=== PATIENT | male | born 1955 | race Caucasian/White ===

== ENCOUNTER 2016-04-12 17:36 | Inpatient (IN) | payer OTHER ==
[~2016-04-12] VITALS: Ht 177.8 cm; Wt 84.4 kg
[~2016-04-12 17:36] MED LIST: CEPH500C PO; OXYC-57 PO
[2016-04-12] MEDS ORDERED: SODIUM CHLORIDE 0.9% 1000ML 1,000 ML IV STA (18:08)
[2016-04-12] MEDS ORDERED: MoRPHine SULFATE 4 MG/ML 1 ML CARP\\VIAL IV STA (18:08)
[2016-04-12] MEDS ORDERED: ONDANSETRON INJ 2 MG/ML 2 ML VIAL IV STA (18:08)
--- NOTE | 2016-04-12 18:16 | EMERGENCY ROOM VISIT NOTE ---
History Report prepared by Chiquis: Jorge Dove Under the Supervision of: Dr. Morenita Pinedo M.D. First contact with patient: 18:00 Chief Complaint: SWELLING TO EXTREMITY Stated Complaint: L LEG PAIN SWELLING, POSSBILE CLOT/INFECTION History of Present Illness The patient is a 61 year old male who presents to the Emergency Room with complaints of persistent left leg pain that started last night around 2200. The patient says he has had red blotches below his left knee for years, but now he feels pain in his bone. He says he uses cream for his leg but the red blotches always come back. The patient describes the pain as severe and worse when walking. He notes that he did not hit his leg recently. The patient denies any chest pain, shortness of breath, fevers, or numbness. The patient has not had any recent trips and he has not had any surgeries. He has no history of a blood clot. He does smoke a pack and a half of cigarettes per day. Per the patient's , the patient took 2 prescription ibuprofen earlier today at 1300 and 1600. Source of History: patient, family Onset: Last night around 2200 Position: leg (left) Symptom Intensity: severe Timing: other (persistent) Modifying Factors (Worsening): other (ambulation) Associated Symptoms: No SOB, No chest pain, No fevers, No numbness Note: Associated symptoms: Red blotches below left knee for years. Review of Systems See HPI for pertinent positives & negatives. A total of 10 systems reviewed and were otherwise negative. Past Medical & Surgical Medical Problems: (1) PNA (pneumonia) (2) Skin problem Family History Cancer Diabetes mellitus Social History Smoking Status: Current Every Day Smoker Alcohol Use: occasionally Marital Status: Occupation Status: employed Current/Historical Medications Scheduled PRN Ibuprofen (Motrin), 1,200 MG PO BID PRN for Pain Allergies Coded Allergies: No Known Allergies (Unverified , 04/12/16) Physical Exam Vital Signs Date Time Temp Pulse Resp B/P Pulse Ox O2 Delivery O2 Flow Rate FiO2 04/12/16 20:21 39.4 04/12/16 20:09 90 18 121/73 95 Room Air 04/12/16 18:32 94 04/12/16 17:42 37.0 108 17 145/79 100 Room Air Physical Exam Vital signs reviewed. General: Well-appearing 61 year old male, in no significant distress. HEENT: No scleral icterus, PERRLA, neck supple. Atraumatic. Cardiovascular: Regular rate and rhythm, no extra sounds. Pulmonary: Clear to auscultation bilaterally, normal work of breathing. Abdomen: Soft, nontender, nondistended, positive bowel sounds. Musculoskeletal: Atraumatic, no peripheral edema. Neurologic: Patient awake alert and oriented x 3, full strength in all 4 extremities. Cranial nerves 2 through 12 grossly intact. Skin: Excoriated skin along the anterior left pantoja with palpable edema and fluctuance along mid-pantoja. Some tenderness to palpation over calf. Some erythema from ankle to the distal knee anteriorly. Medical Decision & Procedures ER Provider Diagnostic Interpretation: X-ray results as stated below per my interpretation and radiologist interpretation. Other radiology results as stated below per my review and radiologist interpretation: LEFT TIBIA AND FIBULA 2 VIEWS CLINICAL HISTORY: Left leg pain and swelling. FINDINGS: AP and lateral views of the left tibia and fibula are obtained. No prior studies are available for comparison at the time of dictation. The skeletal structures are well mineralized. There is no tibial or fibular fracture. The knee and ankle joints are grossly maintained. Mild pretibial soft tissue edema is noted. IMPRESSION: Mild pretibial soft tissue swelling with no fracture identified. Electronically signed by: Yakov Merritt M.D. 04/12/2016 7:27 PM ULTRASOUND LEFT LOWER EXTREMITY VENOUS CLINICAL HISTORY: Left leg pain and swelling. COMPARISON STUDY: No priors. TECHNIQUE: Real-time, grayscale, and color Doppler sonography of the deep veins of the left lower extremity was performed from the inguinal crease to the calf. Compression and augmentation were utilized. FINDINGS: There is no sonographic evidence of deep venous thrombosis identified in the left lower extremity. The common femoral, superficial femoral, and popliteal veins are patent and normally compressible. The greater saphenous vein and the profunda femoris vein at the junction with the common femoral vein are clear. The visualized calf veins are patent. A small popliteal cyst measures 1.8 x 0.6 x 1.3 cm. IMPRESSION: 1. There is no sonographic evidence of deep venous thrombosis identified in the left lower extremity. 2. Small popliteal cyst. Electronically signed by: Yakov Merritt M.D. 04/12/2016 7:52 PM Laboratory Results Laboratory results per my review. Medications Administered Medications (Trade) Dose Ordered Sig/Melissa Route Start Time Stop Time Status Last Admin Dose Admin Sodium Chloride (Nss 1000ml) 1,000 ml @ 125 mls/hr Q8H STAT IV 04/12/16 18:08 04/12/16 22:28 DC 04/12/16 20:09 125 MLS/HR Morphine Sulfate (MoRPHine SULFATE INJ) 4 mg NOW STAT IV 04/12/16 18:08 04/12/16 18:11 DC 04/12/16 19:12 4 MG Ondansetron HCl 4 mg 4 mg NOW STAT IV 04/12/16 18:08 04/12/16 18:11 DC 04/12/16 19:12 4 MG Vancomycin HCl/ Sodium Chloride (Vancomycin Inj/ Nss 500ml) 542 ml @ 200 mls/hr NOW STAT IV 04/12/16 20:28 04/12/16 23:10 DC 04/12/16 21:24 200 MLS/HR ED Course 1801: Past medical records reviewed. The patient was evaluated in room C5. A complete history and physical examination was performed. 1807: Ordered Zofran Inj 4 mg IV, Morphine Sulfate Inj 4 mg IV, NSS 1000 ml @ 125 mls/hr IV. 1956: I reevaluated the patient and he is resting comfortably. 2014: Ordered Keflex Cap 500 mg PO. 2018: I reevaluated the patient and he has a temperature of 39.5. The patient verbally expressed agreement and understanding of the treatment plan. The patient will be evaluated for further treatment. 2027: Ordered Vancomycin HCl 2100 mg/Sodium Chloride 542 ml @ 200 mls/hr IV. 2029: I discussed the patient with Dr. Malone - [facility] hospitalist - he will evaluate the patient for further treatment. Medical Decision Differential diagnosis: Etiologies such as DVT, musculoskeletal, infection, joint effusion, trauma, lymphedema, idiopathic, CHF, hematoma abscess as well as others were entertained.. This patient was evaluated and appeared to be in no significant distress. Physical examination reveals swelling along the anterior tibial region of the left leg. There is some erythema from the ankle to the distal knee. IV access was obtained and laboratory work was drawn. The patient's ultrasound is negative for DVT, x-rays reveal no acute bony abnormality. The patient spiked a temperature during his stay in the emergency department. Blood cultures were ordered as well as a lactate. Patient was hydrated with normal saline solution , medicated with IV vancomycin. He had been given morphine and Zofran for his discomfort. The patient's case was discussed with the hospitalist service. He will be evaluated for further management. Consults Time Called: 2024 Consulting Physician: Dr. Faisal MATIAS hospitalist Returned Call: 2029 I discussed the patient with Dr. Faisal MATIAS hospitalkasey - he will evaluate the patient for further treatment. Impression Primary Impression: Cellulitis of left lower extremity Additional Impression: Fever Scribe Attestation The scribe's documentation has been prepared under my direction and personally reviewed by me in its entirety. I confirm that the note above accurately reflects all work, treatment, procedures, and medical decision making performed by me. Departure Information Dispostion Being Evaluated By Hospitalist Referrals Houston Elizalde M.D. (PCP) Patient Instructions A Signature Page, My [facility]
[2016-04-12 18:38] LABS: BASO % 0.1 %; BASO ABS # 0.01 K/uL (0-0.2); COMPLETE YES; EOS % 1.3 %; HEMATOCRIT 42.6 % (42-52); IG% 0.1 %; LYMPH % 13.1 %; LYMPH ABS # 1.29 K/uL (1.2-3.4); MEAN CELL VOLUME 89.3 fL (80-100); MEAN CORPUSCULAR HEMOGLOBIN 32.5 pg (25-34); MEAN CORPUSCULAR HGB CONC 36.4 g/dl (32-36); MEAN PLATELET VOLUME 9.8 fL (7.4-10.4); MONO % 5.9 %; NEUT % 79.5 %; PLATELET COUNT 177 K/uL (130-400); RED BLOOD COUNT 4.77 M/uL (4.7-6.1); WHITE BLOOD COUNT 9.88 K/uL (4.8-10.8)
[2016-04-12 18:47] LABS: PARTIAL THROMBOPLASTIN RATIO 1.3; PROTHROMBIN TIME (PATIENT) 10.2 SECONDS (9.0-12.0)
[2016-04-12 18:55] LABS: BUN/CREATININE RATIO 13.1 (10-20); CALCIUM 8.4 mg/dl (8.5-10.1); CREATININE 0.94 mg/dl (0.60-1.40); POTASSIUM 3.7 mmol/L (3.5-5.1)
--- NOTE | 2016-04-12 19:28 | DIAGNOSTIC IMAGING REPORT ---
LEFT TIBIA AND FIBULA 2 VIEWS CLINICAL HISTORY: Left leg pain and swelling. FINDINGS: AP and lateral views of the left tibia and fibula are obtained. No prior studies are available for comparison at the time of dictation. The skeletal structures are well mineralized. There is no tibial or fibular fracture. The knee and ankle joints are grossly maintained. Mild pretibial soft tissue edema is noted. IMPRESSION: Mild pretibial soft tissue swelling with no fracture identified. Electronically signed by: Yakov Merritt M.D. 04/12/2016 7:27 PM
--- NOTE | 2016-04-12 19:54 | DIAGNOSTIC IMAGING REPORT ---
ULTRASOUND LEFT LOWER EXTREMITY VENOUS CLINICAL HISTORY: Left leg pain and swelling. COMPARISON STUDY: No priors. TECHNIQUE: Real-time, grayscale, and color Doppler sonography of the deep veins of the left lower extremity was performed from the inguinal crease to the calf. Compression and augmentation were utilized. FINDINGS: There is no sonographic evidence of deep venous thrombosis identified in the left lower extremity. The common femoral, superficial femoral, and popliteal veins are patent and normally compressible. The greater saphenous vein and the profunda femoris vein at the junction with the common femoral vein are clear. The visualized calf veins are patent. A small popliteal cyst measures 1.8 x 0.6 x 1.3 cm. IMPRESSION: 1. There is no sonographic evidence of deep venous thrombosis identified in the left lower extremity. 2. Small popliteal cyst. Electronically signed by: Yakov Merritt M.D. 04/12/2016 7:52 PM
[2016-04-12] MEDS ORDERED: IBUP600T44 PO (20:12)
[2016-04-12] MEDS ORDERED: CEPHALEXIN MONOHYDRATE 250 MG CAP PO ONE (20:15)
[2016-04-12] MEDS ORDERED: SODIUM CHLORIDE 0.9% IV STA (20:21)
[2016-04-12] MEDS ORDERED: VANCOMYCIN IV STA (20:21)
[2016-04-12] MEDS ORDERED: VANCOMYCIN INJ 2,100 MG in SODIUM CHLORIDE 0.9% 500ML 500 ML IV STA (20:28)
[2016-04-12] MEDS ORDERED: ACETAMINOPHEN 325 MG TAB PO PRN (21:15)
[2016-04-12] MEDS ORDERED: TRAMADOL HCL 50 MG TAB PO PRN (21:15)
[2016-04-12] MEDS ORDERED: ONDANSETRON INJ 2 MG/ML 2 ML VIAL IV PRN (21:15)
[2016-04-12] MEDS ORDERED: ZOLPIDEM TARTRATE 5 MG TAB PO PRN (21:15)
[2016-04-12] MEDS ORDERED: MoRPHine SULFATE 2 MG/ML CARP IV PRN (21:15)
[2016-04-12] MEDS ORDERED: PIPERACILL/TAZOBAC CONSULT ACTIVE PRN (21:30)
[2016-04-12] MEDS ORDERED: VANCOMYCIN CONSULT ACTIVE PRN (21:30)
[2016-04-12] MEDS: MoRPHine SULFATE 4 MG/ML 1 ML CARP\\VIAL IV PRN (21:33)
[2016-04-12 22:28] VITALS: BP 159/86; PULSE 101; TEMP 37.8; O2SAT 93
[2016-04-12 22:30] VITALS: BP 159/86; PULSE 101; TEMP 37.8; Ht 177.8 cm; Wt 84.4 kg
[2016-04-12] MEDS ORDERED: PIPERACILL/TAZOBAC IV 3.375 GM in DEXTROSE 5% 100ML IV SCH (23:00)
[2016-04-12] MEDS: NSS + 20MEQ KCL 1000ML 1,000 ML IV SCH (23:26)
[2016-04-12 23:40] VITALS: TEMP 37.6
[2016-04-13] MEDS ORDERED: PIPERACILL/TAZOBAC IV 3.375 GM in DEXTROSE 5% 100ML 100 ML IV SCH ×2
--- NOTE | 2016-04-13 02:22 | History and Physical ---
History & Physical Date & Time of Service: Apr 13, 2016 at 02:11 Chief Complaint: Cellulitis Of Lt Lower Extremity,Lt Leg Pain Primary Care Physician: Houston Elizalde M.D. History of Present Illness Source: patient, spouse The patient is a 61-year-old male who presents emergency department with complaint of persistent left leg pain that began the previous night around 2200 hrs. He has seen his PCP in the past for red blotchy areas on both anterior tibial areas that been present for years. He does itch these areas due to irritation. He's never had left leg pain as now, and his reports that his leg has developed redness almost up to his knee which is a new finding for him. He has not had any recent trips or any recent trauma. There is no family history of blood clots. He does smoke 1 1/2 packs of cigarettes daily. He did take a total of 1200 mg of ibuprofen earlier in the day today without relief of the pain. Past Medical/Surgical History Medical Problems: (1) PNA (pneumonia) Status: Resolved (2) Skin problem Status: Chronic Family History Cancer Diabetes mellitus Social History Smoking Status: Current Every Day Smoker Smokeless Tobacco Use: No Alcohol Use: none Drug Use: none Marital Status: Housing status: lives with family Occupational Status: employed Immunizations History of Influenza Vaccine: No History of Tetanus Vaccine?: Yes Tetanus Immunization Date: May 27, 2010 History of Pneumococcal: No History of Hepatitis B Vaccine: No Multi-Drug Resistant Organisms History of MDRO: No Allergies Coded Allergies: No Known Allergies (Unverified , 04/12/16) Home Medications Scheduled PRN Ibuprofen (Motrin), 1,200 MG PO BID PRN for Pain Review of Systems The patient denies chest pain, palpitations, shortness of breath, cough, vision change, hearing change, sore throat, fevers, chills, sweats, weight change, fatigue, nausea, vomiting, abdominal pain, pelvic pain, blood in urine or stool, dysuria, urinary frequency or urgency, lightheadedness, dizziness, headache, memory loss, imbalance, focal or generalized weakness, numbness or tingling in arms or legs, arthralgias or myalgias, back or neck pain, night sweats, or allergy symptoms. The review of systems is otherwise negative other than for that already noted above, and at least 10 systems have been reviewed. Physical Exam Vital Signs Date Time Temp Pulse Resp B/P Pulse Ox O2 Delivery O2 Flow Rate FiO2 04/12/16 23:40 37.6 04/12/16 23:24 Room Air 04/12/16 22:30 37.8 101 18 159/86 Room Air 04/12/16 22:28 37.8 101 18 159/86 93 Room Air 04/12/16 22:21 108 18 116/72 93 04/12/16 20:21 39.4 04/12/16 20:09 90 18 121/73 95 Room Air 04/12/16 18:32 94 04/12/16 17:42 37.0 108 17 145/79 100 Room Air The patient is awake, well-developed and adequately nourished, alert and oriented 3, normocephalic and atraumatic, lying in bed and in mild to moderate distress secondary to left leg pain. HEENT--PERRL, EOMI, mucous membranes moist, and oropharynx normal. Neck--supple, no JVD or bruits, thyroid normal, trachea midline, no adenopathy. Heart--normal S1 and S2, no extra beats, no murmurs, rubs or gallops. Lungs--clear bilaterally with good air movement, no respiratory distress, no accessory muscle use. Abdomen--normal bowel sounds and soft, nontender and nondistended, no hernias or masses, no organomegaly. Extremities--no cyanosis, clubbing or edema. There is a rash and pain as outlined below. Dermatologic--there is a dyshidrotic eczema on bilateral anterior tibial surfaces, with erythema from ankle to anterior tibial tuberosity on left side with reproducible pain on that side only. Neurologic--cranial nerves II through XII grossly intact. Rheumatologic--painful left anterior tibial surface, otherwise normal range of motion and exam of other joints and muscles. Psychiatric--normal affect. Diagnostics Laboratory Results Results Past 24 Hours Test 04/12/16 18:28 04/12/16 21:15 Range/Units White Blood Count 9.88 4.8-10.8 K/uL Red Blood Count 4.77 4.7-6.1 M/uL Hemoglobin 15.5 14.0-18.0 g/dL Hematocrit 42.6 42-52 % Mean Corpuscular Volume 89.3 80-100 fL Mean Corpuscular Hemoglobin 32.5 25-34 pg Mean Corpuscular Hemoglobin Concent 36.4 32-36 g/dl Platelet Count 177 130-400 K/uL Mean Platelet Volume 9.8 7.4-10.4 fL Neutrophils (%) (Auto) 79.5 % Lymphocytes (%) (Auto) 13.1 % Monocytes (%) (Auto) 5.9 % Eosinophils (%) (Auto) 1.3 % Basophils (%) (Auto) 0.1 % Neutrophils # (Auto) 7.86 1.4-6.5 K/uL Lymphocytes # (Auto) 1.29 1.2-3.4 K/uL Monocytes # (Auto) 0.58 0.11-0.59 K/uL Eosinophils # (Auto) 0.13 0-0.5 K/uL Basophils # (Auto) 0.01 0-0.2 K/uL RDW Standard Deviation 38.8 36.4-46.3 fL RDW Coefficient of Variation 12.0 11.5-14.5 % Immature Granulocyte % (Auto) 0.1 % Immature Granulocyte # (Auto) 0.01 0.00-0.02 K/uL Prothrombin Time 10.2 9.0-12.0 SECONDS Prothromb Time International Ratio 1.0 0.9-1.1 Activated Partial Thromboplast Time 32.6 21.0-31.0 SECONDS Partial Thromboplastin Ratio 1.3 Sodium Level 139 136-145 mmol/L Potassium Level 3.7 3.5-5.1 mmol/L Chloride Level 102 98-107 mmol/L Carbon Dioxide Level 25 21-32 mmol/L Anion Gap 12.0 3-11 mmol/L Blood Urea Nitrogen 12 7-18 mg/dl Creatinine 0.94 0.60-1.40 mg/dl Est Creatinine Clear Calc Drug Dose 86.3 ml/min Estimated GFR () 101.7 Estimated GFR (Non- 87.8 BUN/Creatinine Ratio 13.1 10-20 Random Glucose 99 70-99 mg/dl Calcium Level 8.4 8.5-10.1 mg/dl Magnesium Level 2.0 1.8-2.4 mg/dl Total Bilirubin 0.5 0.2-1 mg/dl Direct Bilirubin 0.2 0-0.2 mg/dl Aspartate Amino Transf (AST/SGOT) 47 15-37 U/L Alanine Aminotransferase (ALT/SGPT) 64 12-78 U/L Alkaline Phosphatase 83 45-117 U/L Total Protein 7.2 6.4-8.2 gm/dl Albumin 3.6 3.4-5.0 gm/dl Bedside Lactic Acid Venous 1.23 0.90-1.70 mmol/L Microbiology Results 04/12/16 Blood Culture, Received Pending 04/12/16 Blood Culture, Received Pending Diagnostic Radiology Patient Name: MANDI VERDE Unit Number: [id number] Dictated: 04/12/161924 Transcribed: 04/12/161924 EV Printed Date/Time: [~ rep prt dt]/[~ rep prt tm] [~ rep ct labl] - [~ rep ct ivnm] [facility] [place] [address] Dictated: 04/12/161924 Transcribed: 04/12/161924 EV Printed Date/Time: [~ rep prt dt]/[~ rep prt tm] [~ rep ct labl] - [~ rep ct ivnm] [~ rep ct add3]] LEFT TIBIA AND FIBULA 2 VIEWS CLINICAL HISTORY: Left leg pain and swelling. FINDINGS: AP and lateral views of the left tibia and fibula are obtained. No prior studies are available for comparison at the time of dictation. The skeletal structures are well mineralized. There is no tibial or fibular fracture. The knee and ankle joints are grossly maintained. Mild pretibial soft tissue edema is noted. IMPRESSION: Mild pretibial soft tissue swelling with no fracture identified. Electronically signed by: Yakov Merritt M.D. 04/12/2016 7:27 PM The status of this report is Signed. Draft = Not yet reviewed or approved by Radiologist. Signed = Reviewed and approved by Radiologist. <AttendingPhy></AttendingPhy> <FamilyPhy>Houston Elizalde M.D.</FamilyPhy> < PrimaryPhy>Houston Elizalde M.D.</PrimaryPhy> <UnitNumber>[id number]</ UnitNumber> <VisitNumber>[id number]</VisitNumber> <PatientName>MANDI VERDE</PatientName> <DateOfBirth>1955</DateOfBirth> <Location>[facility]</ Location> <ServiceDate>04/12/16</ServiceDate> <MNE>ESINDI</MNE> <OrderingPhy> Morenita Pinedo M.D.</OrderingPhy> <OrderingPhyMNE>f rep ord dr cabral</ OrderingPhyMNE> <DictatingPhyMNE>f rep dict dr cabral</DictatingPhyMNE> <CCListMNE> f rep ct mne</CCListMNE> <AdmittingPhyMNE>f pt admit dr cabral</AdmittingPhyMNE> < AttendingPhyMNE>f pt attend dr cabral</AttendingPhyMNE> <ConsultingPhyMNE>f pt consult dr cabral</ConsultingPhyMNE> <FamilyPhyMNE>f pt fam dr cabral</FamilyPhyMNE> <OtherPhyMNE>f pt other dr cabral</OtherPhyMNE> < PrimaryPhyMNE>f pt prim care dr cabral</PrimaryPhyMNE> <ReferringPhyMNE>f pt referring dr cabral</ReferringPhyMNE> Patient Name: MANDI VERDE Unit Number: [id number] Dictated: 04/12/161950 Transcribed: 04/12/161950 EV Printed Date/Time: [~ rep prt dt]/[~ rep prt tm] [~ rep ct labl] - [~ rep ct ivnm] [facility] [place] [place] [address] Dictated: 04/12/161950 Transcribed: 04/12/161950 EV Printed Date/Time: [~ rep prt dt]/[~ rep prt tm] [~ rep ct labl] - [~ rep ct ivnm] [~ rep ct add3]] ULTRASOUND LEFT LOWER EXTREMITY VENOUS CLINICAL HISTORY: Left leg pain and swelling. COMPARISON STUDY: No priors. TECHNIQUE: Real-time, grayscale, and color Doppler sonography of the deep veins of the left lower extremity was performed from the inguinal crease to the calf. Compression and augmentation were utilized. FINDINGS: There is no sonographic evidence of deep venous thrombosis identified in the left lower extremity. The common femoral, superficial femoral, and popliteal veins are patent and normally compressible. The greater saphenous vein and the profunda femoris vein at the junction with the common femoral vein are clear. The visualized calf veins are patent. A small popliteal cyst measures 1.8 x 0.6 x 1.3 cm. IMPRESSION: 1. There is no sonographic evidence of deep venous thrombosis identified in the left lower extremity. 2. Small popliteal cyst. Electronically signed by: Yakov Merritt M.D. 04/12/2016 7:52 PM The status of this report is Signed. Draft = Not yet reviewed or approved by Radiologist. Signed = Reviewed and approved by Radiologist. <AttendingPhy></AttendingPhy> <FamilyPhy>Houston Elizalde M.D.</FamilyPhy> < PrimaryPhy>Houston Elizalde M.D.</PrimaryPhy> <UnitNumber>[id number]</ UnitNumber> <VisitNumber>[id number]</VisitNumber> <PatientName>MANDI VERDE</PatientName> <DateOfBirth>1955</DateOfBirth> <Location>[facility]</ Location> <ServiceDate>04/12/16</ServiceDate> <MNE>ESINDI</MNE> <OrderingPhy> Morenita Pinedo M.D.</OrderingPhy> <OrderingPhyMNE>f rep ord dr cabral</ OrderingPhyMNE> <DictatingPhyMNE>f rep dict dr cabral</DictatingPhyMNE> <CCListMNE> f rep ct misha</CCListMNE> <AdmittingPhyMNE>f pt admit dr cabral</AdmittingPhyMNE> < AttendingPhyMNE>f pt attend dr cabral</AttendingPhyMNE> <ConsultingPhyMNE>f pt consult dr cabral</ConsultingPhyMNE> <FamilyPhyMNE>f pt fam dr cabral</FamilyPhyMNE> <OtherPhyMNE>f pt other dr cabral</OtherPhyMNE> < PrimaryPhyMNE>f pt prim care dr cabral</PrimaryPhyMNE> <ReferringPhyMNE>f pt referring dr cabral</ReferringPhyMNE> Impression Assessment and Plan Cellulitis of left lower extremity with underlying dyshidrotic eczema bilaterally--the patient will be admitted to the medical surgical floor. He'll be continued on vancomycin IV started emergency department, and will add Zosyn 3.375 mg IV every 8 hours. He'll also be placed on normal saline with potassium chloride 20 mEq 100 mils per hour, tramadol 50-100 mg by mouth every 6 hours when necessary, Toradol 30 g IV every 6 hours when necessary, and morphine 2-4 mg IV every 2 hours when necessary. Of note, his temperature was 39.4 upon admission. We'll follow blood culture results. Dyshidrotic eczema bilateral lower extremities--start Lidex cream on right lower extremity 4 times a day. This can be added to left lower extremity once infection heals. Level of Care Med/Surg Advanced Directives Existing Advance Directive: No Existing Living Will: No Existing Power of Engineering Lab Technician: No Resuscitation Status FULL RESUSCITATION VTE Prophylaxis VTE Risk Assessment Done? Y/N: Yes Risk Level: Moderate Social Service Consult None Apply
[2016-04-13] MEDS: KETOROLAC TROMETHAMINE 30 MG/ML VIAL IV PRN ×3 (03:25→19:00)
[2016-04-13 03:29] VITALS: TEMP 37.1
[2016-04-13] MEDS: PIPERACILL/TAZOBAC IV 3.375 GM in DEXTROSE 5% 100ML IV SCH ×3 (03:51→20:10)
[2016-04-13] MEDS: VANCOMYCIN INJ 1,000 MG in SODIUM CHLORIDE 0.9% 250ML 250 ML IV SCH ×2 (05:28→14:25)
[2016-04-13 07:09] VITALS: BP 93/54; PULSE 82; TEMP 37.2; O2SAT 94
[2016-04-13 07:19] LABS: BASO % 0.1 %; BASO ABS # 0.01 K/uL (0-0.2); COMPLETE YES; EOS % 1.2 %; HEMATOCRIT 41.3 % (42-52); IG% 0.3 %; LYMPH % 14.4 %; LYMPH ABS # 1.47 K/uL (1.2-3.4); MEAN CELL VOLUME 89.4 fL (80-100); MEAN CORPUSCULAR HEMOGLOBIN 31.6 pg (25-34); MEAN CORPUSCULAR HGB CONC 35.4 g/dl (32-36); MEAN PLATELET VOLUME 9.8 fL (7.4-10.4); MONO % 7.8 %; NEUT % 76.2 %; PLATELET COUNT 154 K/uL (130-400); RED BLOOD COUNT 4.62 M/uL (4.7-6.1); WHITE BLOOD COUNT 10.24 K/uL (4.8-10.8)
[2016-04-13 07:30] LABS: PARTIAL THROMBOPLASTIN RATIO 1.3; PROTHROMBIN TIME (PATIENT) 10.6 SECONDS (9.0-12.0)
[2016-04-13 07:58] LABS: BUN/CREATININE RATIO 11.7 (10-20); CALCIUM 7.9 mg/dl (8.5-10.1); CREATININE 0.95 mg/dl (0.60-1.40); MAGNESIUM 2.1 mg/dl (1.8-2.4); POTASSIUM 3.9 mmol/L (3.5-5.1)
[2016-04-13] MEDS ORDERED: INFLUENZA VIRUS QUAD VACCINE 0.5 ML SYR IM. ONE (08:00)
[2016-04-13] MEDS ORDERED: INFLUENZA ADMINISTRATION CHARGE ONE (08:00)
[2016-04-13] MEDS: NSS + 20MEQ KCL 1000ML 1,000 ML IV SCH ×4 (08:30→23:14)
[2016-04-13] MEDS: FLUOCINONIDE 0.05% CR 15 GM TUBE EXT SCH ×4 (08:39→20:47)
[2016-04-13] MEDS ORDERED: NURSING VERBAL MED ORDER ONE (09:00)
[2016-04-13] MEDS: PANTOprazole SOD 40 MG TAB PO SCH (10:28)
[2016-04-13] MEDS: MoRPHine SULFATE 4 MG/ML 1 ML CARP\\VIAL IV PRN ×3 (10:35→19:00)
[2016-04-13] MEDS ORDERED: PANTOprazole INJ 40 MG in SYRINGE 0 ML IV SCH (11:00)
[2016-04-13] MEDS: TRAMADOL HCL 50 MG TAB PO PRN (14:31)
--- NOTE | 2016-04-13 14:56 | Family Medicine Progress Note ---
Progress Note Date of Service Apr 13, 2016. Subjective Pt evaluation today including: conversation w/ patient, physical exam Mr Lee was admitted overnight for cellulitis of the left leg. Reports severe pain, with some point tenderness. Tried to ambulate and was able to yesterday, but not today. Has had dyshidrotic eczema for about 10 years, it is usually itchy at night, but never has had cellulitis. Constitutional: + fever (last fever 39.4 on 04/12/16 20:21) Respiratory: No cough, No shortness of breath, No sputum Cardiovascular: No chest pain Abdomen: No diarrhea, No nausea, No pain, No vomiting Male : No dysuria Neurologic: No memory loss Psychiatric: No depression symptoms Endo: No fatigue All Other Systems: Reviewed and Negative Medications Current Inpatient Medications Medications (Trade) Dose Ordered Sig/Melissa Route Start Time Stop Time Status Last Admin Dose Admin Acetaminophen (Tylenol Tab) 650 mg Q4H PRN PO 04/12/16 21:15 05/12/16 21:14 04/12/16 21:34 650 MG Zolpidem Tartrate (Ambien Tab) 5 mg HSZ PRN PO 04/12/16 21:15 05/12/16 21:14 04/12/16 23:44 5 MG Ondansetron HCl (Zofran Inj) 4 mg Q6H PRN IV 04/12/16 21:15 05/12/16 21:14 Tramadol HCl (Ultram Tab) 100 mg Q4H PRN PO 04/12/16 21:15 05/12/16 21:14 04/13/16 14:31 100 MG Tramadol HCl (Ultram Tab) 50 mg Q4H PRN PO 04/12/16 21:15 05/12/16 21:14 Ketorolac Tromethamine 30 mg 30 mg Q6H PRN IV 04/12/16 21:15 04/17/16 21:14 04/13/16 13:31 30 MG Potassium Chloride/Sodium Chloride (Nss + 20meq KCl 1000ml) 1,000 ml @ 100 mls/hr Q10H IV 04/12/16 22:30 05/12/16 22:29 04/13/16 13:32 100 MLS/HR Morphine Sulfate (MoRPHine SULFATE INJ) 2 mg Q2H PRN IV 04/12/16 21:15 04/26/16 21:14 Morphine Sulfate (MoRPHine SULFATE INJ) 4 mg Q2H PRN IV 04/12/16 21:15 04/26/16 21:14 04/13/16 13:32 4 MG Fluocinonide (Lidex Crm) 1 appln QID EXT 04/13/16 09:00 05/13/16 08:59 04/13/16 11:30 1 APPLN Piperacillin Sod/ Tazobactam Sod (Consult) 1 ea UD PRN N/A 04/12/16 21:30 05/12/16 21:29 Vancomycin HCl 1 ea 1 ea UD PRN N/A 04/12/16 21:30 05/12/16 21:29 Piperacillin Sod/ Tazobactam Sod 3.375 gm/Dextrose 115 ml @ 28.75 mls/ hr Q8H IV 04/13/16 04:00 04/23/16 03:59 04/13/16 11:29 28.75 MLS/HR Vancomycin HCl/ Sodium Chloride (Vancomycin Inj/ Nss 250ml) 270 ml @ 125 mls/hr Q9H IV 04/13/16 06:00 04/23/16 05:59 04/13/16 14:25 125 MLS/HR Pantoprazole Sodium (Protonix Tab) 40 mg DAILY@1100 PO 04/13/16 11:00 05/13/16 10:59 04/13/16 10:28 40 MG Objective Vital Signs Date Time Temp Pulse Resp B/P Pulse Ox O2 Delivery O2 Flow Rate FiO2 04/13/16 07:19 Room Air 04/13/16 07:09 37.2 82 20 93/54 94 Room Air 04/13/16 03:29 37.1 04/12/16 23:40 37.6 04/12/16 23:24 Room Air 04/12/16 22:30 37.8 101 18 159/86 Room Air 04/12/16 22:28 37.8 101 18 159/86 93 Room Air 04/12/16 22:21 108 18 116/72 93 04/12/16 20:21 39.4 04/12/16 20:09 90 18 121/73 95 Room Air 04/12/16 18:32 94 04/12/16 17:42 37.0 108 17 145/79 100 Room Air Physical Exam General Appearance: WD/WN, + mild distress Eyes: normal inspection, PERRL ENT: hearing grossly normal Neck: supple, no JVD Respiratory/Chest: lungs clear, normal breath sounds, no respiratory distress Cardiovascular: regular rate, rhythm, no murmur Abdomen: normal bowel sounds, non tender, soft Extremities: + pertinent finding (Left leg erythematous, primarily over anterior pantoja from below knee to medial malleolus. Tender to palpation, and tenderness is out of proportion to exam. Pulses soft but palpable. ) Neurologic/Psychiatric: alert, normal mood/affect, oriented x 3 Skin: + pertinent finding (Erythematous as noted in Extremities.) Laboratory Results Last 24 Hours Test 04/12/16 18:28 04/12/16 21:15 04/13/16 06:50 White Blood Count 9.88 K/uL 10.24 K/uL Red Blood Count 4.77 M/uL 4.62 M/uL Hemoglobin 15.5 g/dL 14.6 g/dL Hematocrit 42.6 % 41.3 % Mean Corpuscular Volume 89.3 fL 89.4 fL Mean Corpuscular Hemoglobin 32.5 pg 31.6 pg Mean Corpuscular Hemoglobin Concent 36.4 g/dl 35.4 g/dl Platelet Count 177 K/uL 154 K/uL Mean Platelet Volume 9.8 fL 9.8 fL Neutrophils (%) (Auto) 79.5 % 76.2 % Lymphocytes (%) (Auto) 13.1 % 14.4 % Monocytes (%) (Auto) 5.9 % 7.8 % Eosinophils (%) (Auto) 1.3 % 1.2 % Basophils (%) (Auto) 0.1 % 0.1 % Neutrophils # (Auto) 7.86 K/uL 7.81 K/uL Lymphocytes # (Auto) 1.29 K/uL 1.47 K/uL Monocytes # (Auto) 0.58 K/uL 0.80 K/uL Eosinophils # (Auto) 0.13 K/uL 0.12 K/uL Basophils # (Auto) 0.01 K/uL 0.01 K/uL RDW Standard Deviation 38.8 fL 39.2 fL RDW Coefficient of Variation 12.0 % 12.2 % Immature Granulocyte % (Auto) 0.1 % 0.3 % Immature Granulocyte # (Auto) 0.01 K/uL 0.03 K/uL Prothrombin Time 10.2 SECONDS 10.6 SECONDS Prothromb Time International Ratio 1.0 1.0 Activated Partial Thromboplast Time 32.6 SECONDS 33.8 SECONDS Partial Thromboplastin Ratio 1.3 1.3 Sodium Level 139 mmol/L 139 mmol/L Potassium Level 3.7 mmol/L 3.9 mmol/L Chloride Level 102 mmol/L 106 mmol/L Carbon Dioxide Level 25 mmol/L 25 mmol/L Anion Gap 12.0 mmol/L 8.0 mmol/L Blood Urea Nitrogen 12 mg/dl 11 mg/dl Creatinine 0.94 mg/dl 0.95 mg/dl Est Creatinine Clear Calc Drug Dose 86.3 ml/min 85.4 ml/min Estimated GFR () 101.7 100.4 Estimated GFR (Non- 87.8 86.7 BUN/Creatinine Ratio 13.1 11.7 Random Glucose 99 mg/dl 114 mg/dl Calcium Level 8.4 mg/dl 7.9 mg/dl Magnesium Level 2.0 mg/dl 2.1 mg/dl Total Bilirubin 0.5 mg/dl 1.2 mg/dl Direct Bilirubin 0.2 mg/dl 0.4 mg/dl Aspartate Amino Transf (AST/SGOT) 47 U/L 32 U/L Alanine Aminotransferase (ALT/SGPT) 64 U/L 52 U/L Alkaline Phosphatase 83 U/L 72 U/L Total Protein 7.2 gm/dl 6.3 gm/dl Albumin 3.6 gm/dl 3.0 gm/dl Bedside Lactic Acid Venous 1.23 mmol/L Assessment and Plan 61 yo M with left leg erythema and severe pain x 2 days, with negative venous US , fever but no leukocytosis - differential includes cellulitis, osteomyelitis, and compartment syndrome. Will treat for cellulitis and get urgent orthopaedic opinion. Plan Left leg pain / erythema (likely cellulitis) - Continue Zosyn and Vancomycin for now - Continue Tylenol, Tramadol, and Morphine for pain - Discussed with Orthopaedics (Dr Rausch), will continue to monitor clinically and if worsens get an MRI of the leg - Blood cultures pending Anxiety - Continue Ambien Dispo: Med Surg CODE STATUS: FULL CODE VTE: Heparin Resident Physician Supervision Note: I was present with Dr. Zuleta during the history and exam. I discussed the case with the resident and agree with the findings and plan as documented in the note. Upon exam, the patient has significant tenderness and more pain than I would suspect with a cellulitis of this area. He does not have a history that would fit neatly with osteomyelitis or compartment syndrome, but need to be considered given the patient's discomfort. Discussed with orthopedics this afternoon and look forward to their recommendations. Documented By: Juan Jose Castellanos Resident Tracking Resident Involvement: Resident Care Provided Care Provided: Adult Hospital Medicine
[2016-04-13] MEDS: HEPARIN SOD 5000 UNIT/0.5 ML CARP SQ SCH ×2 (15:37→22:21)
[2016-04-13 15:40] VITALS: BP 98/63; PULSE 77; TEMP 36.9; O2SAT 95
--- NOTE | 2016-04-13 16:34 | Medical Consult ---
Consultation Note Consultation Note CHIEF COMPLAINT: Left leg pain. HISTORY OF PRESENT ILLNESS: Mr. Lee is a pleasant 61-year-old male, who was admitted last night due to left leg pain and erythema. Orthopedics was consult did due to his significant pain. His x-rays of his tib-fib and negative Doppler ultrasound. He has been started on broad-spectrum IV antibiotics. Past medical history: Pneumonia and skin problems. past surgical history: Knee arthroscopy and distal biceps repair. MEDICATIONS: Ibuprofen. ALLERGIES: No known drug allergies. FAMILY HISTORY: Cancer and diabetes. SOCIAL HISTORY: He smokes 1-1/2 packs per day, denies alcohol and chemical dependency. He is and lives with his family. REVIEW OF SYSTEMS: A 10-point review of systems is noted in the shared medical record from his admission. PHYSICAL EXAM: Patient is in no acute distress. The patient is resting comfortably in his hospital bed. They have an appropriate mood and affect. They weigh 84.4 kg and are 177.8 cm tall. VITALS: Temp 37.6, pulse 82-77, respiratory rate 18-20, blood pressure 93-98/54- 63, 94-95% on room air. Focusing on the patient's left lower extremity, 1+ DP pulse, sensation to light touch is intact, motor to her gastroc soleus, tibialis anterior, and EHL is 5/ 5. Able to perform straight leg raise. Full knee Range of motion. His calf is soft and nontender. All 4 compartments appear soft. He is exquisitely tender to palpation about the anterior aspect of the tibia in the area of his erythema from proximal third down to the medial malleolus. There appears to be some chronic changes in the skin and his anterior aspect. RADIOGRAPHS: AP and lateral left tib-fib, shows only mild pretibial soft tissue swelling. No evidence of osteomyelitis. DOPPLERS: Negative for DVT. LABS: WBCs 10.2 and blood cultures pending. IMPRESSION: Left lower extremity pain, cellulitis. PLAN: After lengthy discussion with the patient his family today, he will continue to be treated with IV antibiotics, and pain medicine. He may elevate. He will be allowed to be weightbearing as tolerated. We will continue to follow while in the hospital, no concern for compartment syndrome and no evidence of osteomyelitis. Should he fail to improve over the next day or 2, consideration could be made for obtaining an MRI of the left lower leg. They understood all my instructions explanations, all their questions were satisfactorily addressed. Thank you for [facility] it participate in this patient's care.
[2016-04-13 23:25] VITALS: BP 113/67; PULSE 65; TEMP 37; O2SAT 93
[2016-04-13] MEDS ORDERED: VANCOMYCIN TROUGH SCH (23:30)
[2016-04-14] MEDS: VANCOMYCIN INJ 1,000 MG in SODIUM CHLORIDE 0.9% 250ML 250 ML IV SCH (00:18)
[2016-04-14] MEDS: PIPERACILL/TAZOBAC IV 3.375 GM in DEXTROSE 5% 100ML IV SCH ×3 (04:20→20:28)
[2016-04-14] MEDS: MoRPHine SULFATE 4 MG/ML 1 ML CARP\\VIAL IV PRN ×3 (04:23→12:47)
[2016-04-14] MEDS: NSS + 20MEQ KCL 1000ML 1,000 ML IV SCH ×2 (06:03→13:51)
[2016-04-14] MEDS: HEPARIN SOD 5000 UNIT/0.5 ML CARP SQ SCH ×3 (06:04→22:09)
[2016-04-14] MEDS: KETOROLAC TROMETHAMINE 30 MG/ML VIAL IV PRN (07:18)
[2016-04-14] MEDS: TRAMADOL HCL 50 MG TAB PO PRN ×2 (07:18→23:27)
[2016-04-14 07:24] VITALS: BP 104/65; PULSE 75; TEMP 37.4; O2SAT 94
[2016-04-14 07:37] LABS: BASO % 0.1 %; BASO ABS # 0.01 K/uL (0-0.2); COMPLETE YES; EOS % 1.1 %; HEMATOCRIT 38.3 % (42-52); IG% 0.2 %; LYMPH ABS # 1.13 K/uL (1.2-3.4); MEAN CELL VOLUME 90.3 fL (80-100); MEAN CORPUSCULAR HEMOGLOBIN 31.1 pg (25-34); MEAN CORPUSCULAR HGB CONC 34.5 g/dl (32-36); MEAN PLATELET VOLUME 9.9 fL (7.4-10.4); MONO % 6.6 %; PLATELET COUNT 133 K/uL (130-400); RED BLOOD COUNT 4.24 M/uL (4.7-6.1); WHITE BLOOD COUNT 8.08 K/uL (4.8-10.8)
[2016-04-14 07:39] LABS: PARTIAL THROMBOPLASTIN RATIO 1.4; PROTHROMBIN TIME (PATIENT) 10.7 SECONDS (9.0-12.0)
[2016-04-14 08:02] LABS: BUN/CREATININE RATIO 9.6 (10-20); CALCIUM 7.5 mg/dl (8.5-10.1); CREATININE 0.9 mg/dl (0.60-1.40); MAGNESIUM 1.9 mg/dl (1.8-2.4); POTASSIUM 4.1 mmol/L (3.5-5.1)
[2016-04-14] MEDS: FLUOCINONIDE 0.05% CR 15 GM TUBE EXT SCH ×4 (08:39→20:29)
[2016-04-14] MEDS ORDERED: VANCOMYCIN INJ 1,250 MG in SODIUM CHLORIDE 0.9% 250ML 250 ML IV SCH (09:00)
--- NOTE | 2016-04-14 11:01 | Medical Consult ---
Consultation Date of Consultation: Apr 14, 2016. Attending Physician: Jose Malone M.D. Reason for Consultation: Left lower extremity cellulitis, minimal improvement History of Present Illness Patient is a 61-year-old male with history of long-term cigarette smoking and dermatitis of the anterior tibial surfaces who presented to the emergency department with complaints of severe and persistent left leg pain started on Wednesday night. The patient initially noted that he woke up Wednesday morning with severe pain in the left leg. Began to progressively worsen at which time he presented for evaluation. The patient states that he does have history of a chronic dermatitis on the bilateral lower extremity anterior surfaces. He was previously treated with prednisone and a cream approximately 8 years ago for this. Since that time, he has had no problems with this chronic rash. He states that he does have some itching of this area which she scratches at night on an off sometimes. He otherwise has not noted any trauma or injury to the left lower extremity. The patient states that he has never been diagnosed with lupus or any connective tissue disorder. He has never had cellulitis in the past. He does not remember being bitten by ticks or any other insects. I did discuss this patient with Dr. Castellanos and Dr. Zuleta. The patient's white blood cell count on admission was 9.88. His creatinine was 0.94. He was noted to have a mildly elevated total bilirubin of 1.2 yesterday. He had an x-ray completed of the tibia and fibula which showed mild pretibial soft tissue swelling but no fracture. A Doppler of the left lower extremity showed no DVT, but a small popliteal cyst. The patient was empirically placed on IV vancomycin and Zosyn. It was noted that his vancomycin trough was 4.3. Past Medical/Surgical History Medical Problems: (1) Cellulitis of left lower extremity Status: Acute (2) Fever Status: Acute Medical Problems: (1) PNA (pneumonia) (2) Skin problem Family History Cancer Diabetes mellitus Non contributory Social History Smoking Status: Current Every Day Smoker Smokeless Tobacco Use: No Alcohol Use: none Drug Use: none Marital Status: Occupation Status: employed Allergies Coded Allergies: No Known Allergies (Unverified , 04/12/16) Home Medications Reported Home Medications Medications Dose Route/Sig Max Daily Dose Days Date Category Motrin (Ibuprofen) 600 Mg Tab 1,200 Mg PO BID PRN 04/12/16 Reported Current Inpatient Medications Current Inpatient Medications Medications (Trade) Dose Ordered Sig/Melissa Route Start Time Stop Time Status Last Admin Dose Admin Acetaminophen (Tylenol Tab) 650 mg Q4H PRN PO 04/12/16 21:15 05/12/16 21:14 04/12/16 21:34 650 MG Zolpidem Tartrate (Ambien Tab) 5 mg HSZ PRN PO 04/12/16 21:15 05/12/16 21:14 04/12/16 23:44 5 MG Ondansetron HCl (Zofran Inj) 4 mg Q6H PRN IV 04/12/16 21:15 05/12/16 21:14 Tramadol HCl (Ultram Tab) 100 mg Q4H PRN PO 04/12/16 21:15 05/12/16 21:14 04/14/16 07:18 100 MG Tramadol HCl (Ultram Tab) 50 mg Q4H PRN PO 04/12/16 21:15 05/12/16 21:14 Ketorolac Tromethamine 30 mg 30 mg Q6H PRN IV 04/12/16 21:15 04/17/16 21:14 04/14/16 07:18 30 MG Potassium Chloride/Sodium Chloride (Nss + 20meq KCl 1000ml) 1,000 ml @ 100 mls/hr Q10H IV 04/12/16 22:30 05/12/16 22:29 04/14/16 06:03 100 MLS/HR Morphine Sulfate (MoRPHine SULFATE INJ) 2 mg Q2H PRN IV 04/12/16 21:15 04/26/16 21:14 Morphine Sulfate (MoRPHine SULFATE INJ) 4 mg Q2H PRN IV 04/12/16 21:15 04/26/16 21:14 04/14/16 08:45 4 MG Fluocinonide (Lidex Crm) 1 appln QID EXT 04/13/16 09:00 05/13/16 08:59 04/14/16 08:39 1 APPLN Piperacillin Sod/ Tazobactam Sod 1 ea 1 ea UD PRN N/A 04/12/16 21:30 05/12/16 21:29 Piperacillin Sod/ Tazobactam Sod/ Dextrose (Zosyn Iv/D5 100ml) 115 ml @ 28.75 mls/ hr Q8H IV 04/13/16 04:00 04/23/16 03:59 04/14/16 04:20 28.75 MLS/HR Pantoprazole Sodium (Protonix Tab) 40 mg DAILY@1100 PO 04/13/16 11:00 05/13/16 10:59 04/13/16 10:28 40 MG Heparin Sodium (Porcine) 5000 unit 5,000 unit Q8 SQ 04/13/16 15:00 05/13/16 14:59 04/14/16 06:04 5,000 UNIT Daptomycin/Sodium Chloride (Cubicin IV/Nss 50ml) 58 ml @ 100 mls/hr DAILY IV 04/15/16 09:00 04/25/16 08:59 UNV Review of Systems Constitutional: No chills, No fever, No sweats Eyes: No worsening of vision ENT: No hearing loss Respiratory: + cough (Chronic-smoker) Cardiovascular: No chest pain Abdomen: No diarrhea, No nausea, No pain, No vomiting Musculoskeletal: + problem reported (Pain, erythema, and swelling of the left lower extremity), + swelling (LLE) Genitourinary - Male: No hematuria Integumentary: + color change (Erythema of the left lower extremity suddenly approximately 2 days prior to admission), + itch (Of rash), + rash (Bilateral lower extremity anterior tibial surface dry skin/rash-chronic approximately 8 years) Physical Exam Date Time Temp Pulse Resp B/P Pulse Ox O2 Delivery O2 Flow Rate FiO2 04/14/16 07:24 37.4 75 20 104/65 94 Room Air 04/14/16 07:10 Room Air 04/14/16 00:25 Room Air 04/13/16 23:25 37.0 65 18 113/67 93 Room Air 04/13/16 15:40 36.9 77 18 98/63 95 Room Air 04/13/16 15:30 Room Air General Appearance: WD/WN, no apparent distress Head: normocephalic, atraumatic Eyes: normal inspection, sclerae normal ENT: hearing grossly normal Neck: supple, trachea midline Respiratory/Chest: chest non-tender, normal breath sounds, no respiratory distress, no accessory muscle use Cardiovascular: regular rate, rhythm, no murmur Abdomen/GI: normal bowel sounds, non tender, soft, no organomegaly Back: normal inspection Extremities/Musculoskelatal: + swelling (Swelling of the left ankle and left lower extremity.), + pertinent finding (Tenderness to palpation of the left anterior tibial surface and medial portion of the left lower extremity) Neurologic/Psych: alert, normal mood/affect Skin: warm/dry, + rash (Moderate dry patches of the anterior tibial surfaces. No open wounds. Also slightly erythematous/dark rash of the bilateral cheeks- almost appears malar), + pertinent finding ( Erythema noted of the left lower extremity, moderate. ) Laboratory Results LEFT TIBIA AND FIBULA 2 VIEWS CLINICAL HISTORY: Left leg pain and swelling. FINDINGS: AP and lateral views of the left tibia and fibula are obtained. No prior studies are available for comparison at the time of dictation. The skeletal structures are well mineralized. There is no tibial or fibular fracture. The knee and ankle joints are grossly maintained. Mild pretibial soft tissue edema is noted. IMPRESSION: Mild pretibial soft tissue swelling with no fracture identified. ULTRASOUND LEFT LOWER EXTREMITY VENOUS CLINICAL HISTORY: Left leg pain and swelling. COMPARISON STUDY: No priors. TECHNIQUE: Real-time, grayscale, and color Doppler sonography of the deep veins of the left lower extremity was performed from the inguinal crease to the calf. Compression and augmentation were utilized. FINDINGS: There is no sonographic evidence of deep venous thrombosis identified in the left lower extremity. The common femoral, superficial femoral, and popliteal veins are patent and normally compressible. The greater saphenous vein and the profunda femoris vein at the junction with the common femoral vein are clear. The visualized calf veins are patent. A small popliteal cyst measures 1.8 x 0.6 x 1.3 cm. IMPRESSION: 1. There is no sonographic evidence of deep venous thrombosis identified in the left lower extremity. 2. Small popliteal cyst. Item Value Date Time Blood Culture - Preliminary Resulted 04/12/16 2105 Blood NO GROWTH TO DATE. Blood Culture - Preliminary Resulted 04/12/16 2100 Blood NO GROWTH TO DATE. Last 24 Hours Test 04/13/16 23:30 04/14/16 07:04 04/14/16 10:27 04/14/16 10:53 Vancomycin Level Trough 4.3 mcg/ml White Blood Count 8.08 K/uL Red Blood Count 4.24 M/uL Hemoglobin 13.2 g/dL Hematocrit 38.3 % Mean Corpuscular Volume 90.3 fL Mean Corpuscular Hemoglobin 31.1 pg Mean Corpuscular Hemoglobin Concent 34.5 g/dl Platelet Count 133 K/uL Mean Platelet Volume 9.9 fL Neutrophils (%) (Auto) 78.0 % Lymphocytes (%) (Auto) 14.0 % Monocytes (%) (Auto) 6.6 % Eosinophils (%) (Auto) 1.1 % Basophils (%) (Auto) 0.1 % Neutrophils # (Auto) 6.30 K/uL Lymphocytes # (Auto) 1.13 K/uL Monocytes # (Auto) 0.53 K/uL Eosinophils # (Auto) 0.09 K/uL Basophils # (Auto) 0.01 K/uL RDW Standard Deviation 40.2 fL RDW Coefficient of Variation 12.1 % Immature Granulocyte % (Auto) 0.2 % Immature Granulocyte # (Auto) 0.02 K/uL Prothrombin Time 10.7 SECONDS Prothromb Time International Ratio 1.0 Activated Partial Thromboplast Time 37.1 SECONDS Partial Thromboplastin Ratio 1.4 Sodium Level 134 mmol/L Potassium Level 4.1 mmol/L Chloride Level 103 mmol/L Carbon Dioxide Level 23 mmol/L Anion Gap 8.0 mmol/L Blood Urea Nitrogen 9 mg/dl Creatinine 0.90 mg/dl Est Creatinine Clear Calc Drug Dose 90.1 ml/min Estimated GFR () 107.2 Estimated GFR (Non- 92.5 BUN/Creatinine Ratio 9.6 Random Glucose 148 mg/dl Calcium Level 7.5 mg/dl Magnesium Level 1.9 mg/dl Total Bilirubin 0.7 mg/dl Direct Bilirubin 0.3 mg/dl Aspartate Amino Transf (AST/SGOT) 28 U/L Alanine Aminotransferase (ALT/SGPT) 42 U/L Alkaline Phosphatase 61 U/L Total Protein 5.9 gm/dl Albumin 2.6 gm/dl Assessment & Plan Patient with left lower extremity cellulitis and ankle swelling in the setting of chronic dermatitis of the bilateral anterior tibial surfaces. Patient's Vancomycin level has been sub-therapeutic and he has had minimal improvement thus far, therefore will change to IV Daptomycin for now pending improvement. Blood cultures have shown no growth. Continue IV Zosyn as well for now. MRI is pending will await these results. Will also order YARITZA screen and Rheumatoid factor with chronic dry skin on lower extremities and potential malar rash of the face. We will follow. PROVIDER ADDENDUM: Patient examined and reviewed with Ms. Moralez. Agree with above assessment.
--- NOTE | 2016-04-14 11:25 | Family Medicine Progress Note ---
Progress Note Date of Service Apr 14, 2016. Subjective Pt evaluation today including: conversation w/ patient, conversation w/ family , physical exam Mild improvement overnight, as redness improved from proximal leg, but worse distally, with new lower edema in that ankle as well. Still has persistent pain, despite frequent doses of morphine, tramadol, toradol. Constitutional: + weakness, No chills, No fever, No sweats Respiratory: No cough, No dyspnea on exertion, No sputum, No wheezing Cardiovascular: No chest pain Abdomen: No diarrhea, No nausea, No pain, No vomiting Endo: No fatigue All Other Systems: Reviewed and Negative Medications Current Inpatient Medications Medications (Trade) Dose Ordered Sig/Melissa Route Start Time Stop Time Status Last Admin Dose Admin Acetaminophen (Tylenol Tab) 650 mg Q4H PRN PO 04/12/16 21:15 05/12/16 21:14 04/12/16 21:34 650 MG Zolpidem Tartrate (Ambien Tab) 5 mg HSZ PRN PO 04/12/16 21:15 05/12/16 21:14 04/12/16 23:44 5 MG Ondansetron HCl (Zofran Inj) 4 mg Q6H PRN IV 04/12/16 21:15 05/12/16 21:14 Tramadol HCl (Ultram Tab) 100 mg Q4H PRN PO 04/12/16 21:15 05/12/16 21:14 04/14/16 07:18 100 MG Tramadol HCl (Ultram Tab) 50 mg Q4H PRN PO 04/12/16 21:15 05/12/16 21:14 Ketorolac Tromethamine 30 mg 30 mg Q6H PRN IV 04/12/16 21:15 04/17/16 21:14 04/14/16 07:18 30 MG Potassium Chloride/Sodium Chloride (Nss + 20meq KCl 1000ml) 1,000 ml @ 100 mls/hr Q10H IV 04/12/16 22:30 05/12/16 22:29 04/14/16 06:03 100 MLS/HR Morphine Sulfate (MoRPHine SULFATE INJ) 2 mg Q2H PRN IV 04/12/16 21:15 04/26/16 21:14 Morphine Sulfate (MoRPHine SULFATE INJ) 4 mg Q2H PRN IV 04/12/16 21:15 04/26/16 21:14 04/14/16 08:45 4 MG Fluocinonide (Lidex Crm) 1 appln QID EXT 04/13/16 09:00 05/13/16 08:59 04/14/16 08:39 1 APPLN Piperacillin Sod/ Tazobactam Sod 1 ea 1 ea UD PRN N/A 04/12/16 21:30 05/12/16 21:29 Piperacillin Sod/ Tazobactam Sod/ Dextrose (Zosyn Iv/D5 100ml) 115 ml @ 28.75 mls/ hr Q8H IV 04/13/16 04:00 04/23/16 03:59 04/14/16 04:20 28.75 MLS/HR Pantoprazole Sodium (Protonix Tab) 40 mg DAILY@1100 PO 04/13/16 11:00 05/13/16 10:59 04/13/16 10:28 40 MG Heparin Sodium (Porcine) 5000 unit 5,000 unit Q8 SQ 04/13/16 15:00 05/13/16 14:59 04/14/16 06:04 5,000 UNIT Daptomycin/Sodium Chloride (Cubicin IV/Nss 50ml) 58 ml @ 100 mls/hr DAILY@1400 IV 04/14/16 14:00 04/24/16 13:59 Objective Vital Signs Date Time Temp Pulse Resp B/P Pulse Ox O2 Delivery O2 Flow Rate FiO2 04/14/16 07:24 37.4 75 20 104/65 94 Room Air 04/14/16 07:10 Room Air 04/14/16 00:25 Room Air 04/13/16 23:25 37.0 65 18 113/67 93 Room Air 04/13/16 15:40 36.9 77 18 98/63 95 Room Air 04/13/16 15:30 Room Air Physical Exam General Appearance: WD/WN, + mild distress Eyes: normal inspection, PERRL ENT: hearing grossly normal Neck: supple, no JVD Respiratory/Chest: lungs clear, normal breath sounds, no respiratory distress Cardiovascular: regular rate, rhythm, no murmur Abdomen: normal bowel sounds, non tender, soft Extremities: normal range of motion, + pertinent finding (erythema to left leg , receded from previous markings. tender to palpation. no evidence of purulence or collection.) Neurologic/Psychiatric: alert, normal mood/affect, oriented x 3 Laboratory Results Last 24 Hours Test 04/13/16 23:30 04/14/16 07:04 04/14/16 10:27 04/14/16 10:53 Vancomycin Level Trough 4.3 mcg/ml White Blood Count 8.08 K/uL Red Blood Count 4.24 M/uL Hemoglobin 13.2 g/dL Hematocrit 38.3 % Mean Corpuscular Volume 90.3 fL Mean Corpuscular Hemoglobin 31.1 pg Mean Corpuscular Hemoglobin Concent 34.5 g/dl Platelet Count 133 K/uL Mean Platelet Volume 9.9 fL Neutrophils (%) (Auto) 78.0 % Lymphocytes (%) (Auto) 14.0 % Monocytes (%) (Auto) 6.6 % Eosinophils (%) (Auto) 1.1 % Basophils (%) (Auto) 0.1 % Neutrophils # (Auto) 6.30 K/uL Lymphocytes # (Auto) 1.13 K/uL Monocytes # (Auto) 0.53 K/uL Eosinophils # (Auto) 0.09 K/uL Basophils # (Auto) 0.01 K/uL RDW Standard Deviation 40.2 fL RDW Coefficient of Variation 12.1 % Immature Granulocyte % (Auto) 0.2 % Immature Granulocyte # (Auto) 0.02 K/uL Prothrombin Time 10.7 SECONDS Prothromb Time International Ratio 1.0 Activated Partial Thromboplast Time 37.1 SECONDS Partial Thromboplastin Ratio 1.4 Sodium Level 134 mmol/L Potassium Level 4.1 mmol/L Chloride Level 103 mmol/L Carbon Dioxide Level 23 mmol/L Anion Gap 8.0 mmol/L Blood Urea Nitrogen 9 mg/dl Creatinine 0.90 mg/dl Est Creatinine Clear Calc Drug Dose 90.1 ml/min Estimated GFR () 107.2 Estimated GFR (Non- 92.5 BUN/Creatinine Ratio 9.6 Random Glucose 148 mg/dl Calcium Level 7.5 mg/dl Magnesium Level 1.9 mg/dl Total Bilirubin 0.7 mg/dl Direct Bilirubin 0.3 mg/dl Aspartate Amino Transf (AST/SGOT) 28 U/L Alanine Aminotransferase (ALT/SGPT) 42 U/L Alkaline Phosphatase 61 U/L Total Protein 5.9 gm/dl Albumin 2.6 gm/dl Assessment and Plan 61 yo M with left leg erythema and severe pain x 2 days, with mild improvement on Vanc and Zosyn (now on day 2). Plan Left leg pain / erythema (likely cellulitis) - Infectious Diseases consult - agree with changing to Dapto for now - Continue Tylenol, Tramadol, and Morphine for pain - Will get MRI of leg today to evaluate - Blood cultures negative x 1 day Anxiety - Continue Ambien Dispo: Med Surg CODE STATUS: FULL CODE VTE: Heparin Resident Physician Supervision Note: I was present with Dr. Zuleta during the history and exam. I discussed the case with the resident and agree with the findings and plan as documented in the note. Any exceptions or clarifications are listed here: Area of redness slightly less but still with considerable tenderness to the touch and the patient complains of a "deep bone" pain. Vancomycin has been sub therapeutic thus far; discussed with pharmacy. Given the continued pain and diagnostic uncertainty, agree with ID consult and MRI of the lower leg. I personally saw the patient and discussed with the ID team. Documented By: Juan Jose Castellanos Resident Tracking Resident Involvement: Resident Care Provided Care Provided: Adult Hospital Medicine
[2016-04-14] MEDS ORDERED: GADAVIST IV PRN (12:30)
--- NOTE | 2016-04-14 12:43 | DIAGNOSTIC IMAGING REPORT ---
MRI OF THE LEFT LOWER LEG WITHOUT AND WITH CONTRAST CLINICAL HISTORY: Cellulitis. Extreme point tenderness in the left mid pantoja. Possible osteomyelitis. COMPARISON STUDY: Conventional radiographic study dated 04/12/2016 FINDINGS: Imaging was performed in sagittal, axial, and coronal planes before and after administration of 8 cc of intravenous Gadavist. There are no areas of marrow edema to indicate osteomyelitis. There is diffuse cutaneous and subcutaneous edema, most pronounced medially. This extends from the knee to the ankle. There are small slivers of subcutaneous fluid, but no focal fluid collections large enough to indicate a drainable abscess There are no intramuscular masses. IMPRESSION: 1. Diffuse lower extremity edema consistent with cellulitis 2. Small focal slivers of fluid within the subcutaneous tissues, but no evidence of a drainable abscess 3. No evidence of osteomyelitis 4. No intramuscular masses. Electronically signed by: Gab Bronson M.D. 04/14/2016 12:41 PM
[2016-04-14] MEDS: PANTOprazole SOD 40 MG TAB PO SCH (12:44)
[2016-04-14] MEDS: DAPTOmycin IV 400 MG in SODIUM CHLORIDE 0.9% 50ML 50 ML IV SCH (13:51)
[2016-04-14 14:25] LABS: LYME DISEASE AB IGG NEG (NEG); LYME DISEASE AB IGM NEG (NEG)
--- NOTE | 2016-04-14 14:41 | Medical Student: [facility] ---
Med Student Progress Note Date of Service Apr 14, 2016. Subjective Pt evaluation today including: conversation w/ patient, physical exam, chart review, lab review, review of studies Pain: Improved PO Intake: Regular Diet Voiding: no voiding problems Pt is a 61 yo male admitted three days ago with a suspected cellulitis of the LLE. Pt notes that he is feeling better today, and is able to weight bear on his left leg. Denies fever, chills, dyspnea, or chest pain. Review of Systems Constitutional: No chills, No fever, No sweats Respiratory: No shortness of breath Cardiac: No chest pain, No palpitations Abdomen: No nausea, No pain, No vomiting Musculoskeletal: + see HPI, + swelling (LL ankle swelling) Skin: + color change (redness subsided proximally, worse distally), + rash Objective Vital Signs Date Time Temp Pulse Resp B/P Pulse Ox O2 Delivery O2 Flow Rate FiO2 04/14/16 07:24 37.4 75 20 104/65 94 Room Air 04/14/16 07:10 Room Air 04/14/16 00:25 Room Air 04/13/16 23:25 37.0 65 18 113/67 93 Room Air 04/13/16 15:40 36.9 77 18 98/63 95 Room Air 04/13/16 15:30 Room Air Physical Exam General Appearance: WD/WN, no apparent distress Respiratory/Chest: lungs clear, normal breath sounds Cardiovascular: regular rate, rhythm, no murmur Skin: + pertinent finding (Redness improved slightly proximally, more erythematous distally. ) Laboratory Results Last 24 Hours Test 04/13/16 23:30 04/14/16 07:04 04/14/16 12:50 Vancomycin Level Trough 4.3 mcg/ml White Blood Count 8.08 K/uL Red Blood Count 4.24 M/uL Hemoglobin 13.2 g/dL Hematocrit 38.3 % Mean Corpuscular Volume 90.3 fL Mean Corpuscular Hemoglobin 31.1 pg Mean Corpuscular Hemoglobin Concent 34.5 g/dl Platelet Count 133 K/uL Mean Platelet Volume 9.9 fL Neutrophils (%) (Auto) 78.0 % Lymphocytes (%) (Auto) 14.0 % Monocytes (%) (Auto) 6.6 % Eosinophils (%) (Auto) 1.1 % Basophils (%) (Auto) 0.1 % Neutrophils # (Auto) 6.30 K/uL Lymphocytes # (Auto) 1.13 K/uL Monocytes # (Auto) 0.53 K/uL Eosinophils # (Auto) 0.09 K/uL Basophils # (Auto) 0.01 K/uL RDW Standard Deviation 40.2 fL RDW Coefficient of Variation 12.1 % Immature Granulocyte % (Auto) 0.2 % Immature Granulocyte # (Auto) 0.02 K/uL Prothrombin Time 10.7 SECONDS Prothromb Time International Ratio 1.0 Activated Partial Thromboplast Time 37.1 SECONDS Partial Thromboplastin Ratio 1.4 Sodium Level 134 mmol/L Potassium Level 4.1 mmol/L Chloride Level 103 mmol/L Carbon Dioxide Level 23 mmol/L Anion Gap 8.0 mmol/L Blood Urea Nitrogen 9 mg/dl Creatinine 0.90 mg/dl Est Creatinine Clear Calc Drug Dose 90.1 ml/min Estimated GFR () 107.2 Estimated GFR (Non- 92.5 BUN/Creatinine Ratio 9.6 Random Glucose 148 mg/dl Calcium Level 7.5 mg/dl Magnesium Level 1.9 mg/dl Total Bilirubin 0.7 mg/dl Direct Bilirubin 0.3 mg/dl Aspartate Amino Transf (AST/SGOT) 28 U/L Alanine Aminotransferase (ALT/SGPT) 42 U/L Alkaline Phosphatase 61 U/L Total Protein 5.9 gm/dl Albumin 2.6 gm/dl Rheumatoid Factor < 10.0 U/mL Lyme Disease IgG Antibody NEG Lyme Disease IgM Antibody NEG Assessment and Plan Assessment and Plan: Pt is a 61 yo male with LLE swelling, pain and erythema likely secondary to cellulitis. 1. Ortho consult -- unlikely compartment syndrome or osteomyelitis. Rec continue abx. 2. Vanco and Zosyn continued - however Vanco dosing was found to be sub- therapeutic -- Increase dosing with Pharmacy, Consult ID. 3. Continue Morphine, Toradol, Tramadol prn for pain. 4. MRI of LLE to confirm cellulitis. Full Resuscitation VTE prophylaxis - Heparin Dispo - remain on med/surg MEDICAL STUDENT SUPERVISION I saw the patient with the medical student and the resident physician. [place] see the resident documentation with my attestation of the same date. Continued [facility] stay due to: multiple IV medications needed
[2016-04-14 15:00] VITALS: BP 130/82; PULSE 63; TEMP 36.5; O2SAT 95
[2016-04-14 22:55] VITALS: BP 113/55; PULSE 87; TEMP 37.7; O2SAT 92
[2016-04-14 23:29] VITALS: TEMP 37.3
[2016-04-15] VITALS (8 sets, daily range): BP systolic 113–128; BP diastolic 69–74; PULSE 70–91; TEMP 36.4–37.4; O2SAT 90–96
[2016-04-15] MEDS: PIPERACILL/TAZOBAC IV 3.375 GM in DEXTROSE 5% 100ML IV SCH ×3 (04:43→20:24)
[2016-04-15] MEDS: MoRPHine SULFATE 4 MG/ML 1 ML CARP\\VIAL IV PRN (04:43)
[2016-04-15] MEDS: HEPARIN SOD 5000 UNIT/0.5 ML CARP SQ SCH ×3 (05:50→20:27)
[2016-04-15 08:02] LABS: BASO % 0.1 %; BASO ABS # 0.01 K/uL (0-0.2); COMPLETE YES; HEMATOCRIT 37.6 % (42-52); IG% 0.2 %; LYMPH % 14.7 %; MEAN CELL VOLUME 88.7 fL (80-100); MEAN CORPUSCULAR HEMOGLOBIN 31.6 pg (25-34); MEAN CORPUSCULAR HGB CONC 35.6 g/dl (32-36); MEAN PLATELET VOLUME 9.8 fL (7.4-10.4); MONO % 6.5 %; NEUT % 76.5 %; PLATELET COUNT 146 K/uL (130-400); RED BLOOD COUNT 4.24 M/uL (4.7-6.1); WHITE BLOOD COUNT 8.14 K/uL (4.8-10.8)
[2016-04-15 08:09] LABS: PARTIAL THROMBOPLASTIN RATIO 1.4; PROTHROMBIN TIME (PATIENT) 10.5 SECONDS (9.0-12.0)
[2016-04-15] MEDS: FLUOCINONIDE 0.05% CR 15 GM TUBE EXT SCH ×4 (08:27→20:25)
[2016-04-15 08:31] LABS: BUN/CREATININE RATIO 8.5 (10-20); CALCIUM 8.3 mg/dl (8.5-10.1); CREATININE 0.81 mg/dl (0.60-1.40); MAGNESIUM 1.9 mg/dl (1.8-2.4); POTASSIUM 3.9 mmol/L (3.5-5.1)
[2016-04-15] MEDS ORDERED: OXYCODONE/ACETAMINOPHEN 5-325 TAB PO PRN (10:15)
--- NOTE | 2016-04-15 10:22 | Family Medicine Progress Note ---
Progress Note Date of Service Apr 15, 2016. Subjective Pt evaluation today including: conversation w/ patient, conversation w/ family , physical exam Reports persistent pain overnight, and worse left ankle edema and shifting of the areas of redness from the anterior leg to posterior. Still painful to ambulate. Constitutional: + fever (37.7C Tmax), + weakness, No sweats, No weight loss Eyes: No worsening of vision Respiratory: No cough, No dyspnea on exertion, No shortness of breath, No sputum, No wheezing Cardiovascular: No chest pain Abdomen: No constipation, No diarrhea, No nausea, No pain, No vomiting Male : No dysuria Neurologic: No memory loss Psychiatric: No depression symptoms Endo: No fatigue Skin: + itch, + new/changing skin lesions, + rash All Other Systems: Reviewed and Negative Medications Current Inpatient Medications Medications (Trade) Dose Ordered Sig/Melissa Route Start Time Stop Time Status Last Admin Dose Admin Acetaminophen (Tylenol Tab) 650 mg Q4H PRN PO 04/12/16 21:15 05/12/16 21:14 04/12/16 21:34 650 MG Zolpidem Tartrate (Ambien Tab) 5 mg HSZ PRN PO 04/12/16 21:15 05/12/16 21:14 04/12/16 23:44 5 MG Ondansetron HCl (Zofran Inj) 4 mg Q6H PRN IV 04/12/16 21:15 05/12/16 21:14 04/14/16 12:47 4 MG Tramadol HCl (Ultram Tab) 100 mg Q4H PRN PO 04/12/16 21:15 05/12/16 21:14 04/14/16 23:27 100 MG Tramadol HCl (Ultram Tab) 50 mg Q4H PRN PO 04/12/16 21:15 05/12/16 21:14 Ketorolac Tromethamine (Toradol Inj) 30 mg Q6H PRN IV 04/12/16 21:15 04/17/16 21:14 04/14/16 07:18 30 MG Morphine Sulfate (MoRPHine SULFATE INJ) 2 mg Q2H PRN IV 04/12/16 21:15 04/26/16 21:14 Morphine Sulfate (MoRPHine SULFATE INJ) 4 mg Q2H PRN IV 04/12/16 21:15 04/26/16 21:14 04/15/16 04:43 4 MG Fluocinonide (Lidex Crm) 1 appln QID EXT 04/13/16 09:00 05/13/16 08:59 04/15/16 08:27 1 APPLN Piperacillin Sod/ Tazobactam Sod 1 ea 1 ea UD PRN N/A 04/12/16 21:30 05/12/16 21:29 Piperacillin Sod/ Tazobactam Sod/ Dextrose (Zosyn Iv/D5 100ml) 115 ml @ 28.75 mls/ hr Q8H IV 04/13/16 04:00 04/23/16 03:59 04/15/16 04:43 28.75 MLS/HR Pantoprazole Sodium (Protonix Tab) 40 mg DAILY@1100 PO 04/13/16 11:00 05/13/16 10:59 04/14/16 12:44 40 MG Heparin Sodium (Porcine) 5000 unit 5,000 unit Q8 SQ 04/13/16 15:00 05/13/16 14:59 04/15/16 05:50 5,000 UNIT Daptomycin/Sodium Chloride (Cubicin IV/Nss 50ml) 58 ml @ 100 mls/hr DAILY@1400 IV 04/14/16 14:00 04/24/16 13:59 04/14/16 13:51 100 MLS/HR Gadobutrol (Gadavist) 8 mmol UD PRN IV 04/14/16 12:30 04/18/16 12:29 Objective Vital Signs Date Time Temp Pulse Resp B/P Pulse Ox O2 Delivery O2 Flow Rate FiO2 04/15/16 08:12 90 Room Air 04/15/16 07:51 37.4 74 18 118/74 90 Room Air 04/15/16 07:01 37.2 82 16 113/69 92 Room Air 04/15/16 07:00 Room Air 04/14/16 23:29 37.3 04/14/16 23:29 Room Air 04/14/16 22:55 37.7 87 18 113/55 92 Room Air 04/14/16 15:40 Room Air 04/14/16 15:00 36.5 63 18 130/82 95 Room Air Physical Exam General Appearance: WD/WN, + mild distress Eyes: normal inspection, PERRL ENT: hearing grossly normal Neck: supple, no adenopathy, no JVD Respiratory/Chest: lungs clear, normal breath sounds, no respiratory distress Cardiovascular: regular rate, rhythm, no murmur Abdomen: normal bowel sounds, non tender, soft Extremities: non-tender, + pedal edema (L ankle edema, worse from yesterday) Neurologic/Psychiatric: alert, normal mood/affect, oriented x 3 Skin: + pertinent finding (erythema beyond line drawn from 2 days ago on posterior aspect of leg, improved on anterior leg. Soft to palpation. Good ROM and strength of toes. Pulses palpable. ) Laboratory Results Last 24 Hours Test 04/14/16 12:50 04/15/16 07:46 Rheumatoid Factor < 10.0 U/mL Lyme Disease IgG Antibody NEG Lyme Disease IgM Antibody NEG White Blood Count 8.14 K/uL Red Blood Count 4.24 M/uL Hemoglobin 13.4 g/dL Hematocrit 37.6 % Mean Corpuscular Volume 88.7 fL Mean Corpuscular Hemoglobin 31.6 pg Mean Corpuscular Hemoglobin Concent 35.6 g/dl Platelet Count 146 K/uL Mean Platelet Volume 9.8 fL Neutrophils (%) (Auto) 76.5 % Lymphocytes (%) (Auto) 14.7 % Monocytes (%) (Auto) 6.5 % Eosinophils (%) (Auto) 2.0 % Basophils (%) (Auto) 0.1 % Neutrophils # (Auto) 6.22 K/uL Lymphocytes # (Auto) 1.20 K/uL Monocytes # (Auto) 0.53 K/uL Eosinophils # (Auto) 0.16 K/uL Basophils # (Auto) 0.01 K/uL RDW Standard Deviation 38.3 fL RDW Coefficient of Variation 11.8 % Immature Granulocyte % (Auto) 0.2 % Immature Granulocyte # (Auto) 0.02 K/uL Prothrombin Time 10.5 SECONDS Prothromb Time International Ratio 1.0 Activated Partial Thromboplast Time 36.2 SECONDS Partial Thromboplastin Ratio 1.4 Sodium Level 133 mmol/L Potassium Level 3.9 mmol/L Chloride Level 101 mmol/L Carbon Dioxide Level 24 mmol/L Anion Gap 8.0 mmol/L Blood Urea Nitrogen 7 mg/dl Creatinine 0.81 mg/dl Est Creatinine Clear Calc Drug Dose 100.1 ml/min Estimated GFR () 112.0 Estimated GFR (Non- 96.6 BUN/Creatinine Ratio 8.5 Random Glucose 120 mg/dl Calcium Level 8.3 mg/dl Magnesium Level 1.9 mg/dl Total Bilirubin 1.0 mg/dl Direct Bilirubin 0.5 mg/dl Aspartate Amino Transf (AST/SGOT) 31 U/L Alanine Aminotransferase (ALT/SGPT) 38 U/L Alkaline Phosphatase 62 U/L Total Protein 6.1 gm/dl Albumin 2.5 gm/dl MRI OF THE LEFT LOWER LEG WITHOUT AND WITH CONTRAST CLINICAL HISTORY: Cellulitis. Extreme point tenderness in the left mid pantoja. Possible osteomyelitis. COMPARISON STUDY: Conventional radiographic study dated 04/12/2016 FINDINGS: Imaging was performed in sagittal, axial, and coronal planes before and after administration of 8 cc of intravenous Gadavist. There are no areas of marrow edema to indicate osteomyelitis. There is diffuse cutaneous and subcutaneous edema, most pronounced medially. This extends from the knee to the ankle. There are small slivers of subcutaneous fluid, but no focal fluid collections large enough to indicate a drainable abscess There are no intramuscular masses. IMPRESSION: 1. Diffuse lower extremity edema consistent with cellulitis 2. Small focal slivers of fluid within the subcutaneous tissues, but no evidence of a drainable abscess 3. No evidence of osteomyelitis 4. No intramuscular masses. Assessment and Plan 61 yo M with left leg erythema and severe pain x 3 days, with worsening of erythema on posterior aspect of leg and edema on ankle. MRI negative for abscess / osteomyelitis, and shows cellulitis. Plan Severe left leg cellulitis - Has had 4 days of antibiotics so far, initially on Vancomycin and Zosyn, now on Daptomycin 400mg IV daily and Zosyn 3.375 g IV TID. - Blood cultures negative at 3 days - MRI results as above, no drainable abscess or evidence of osteomyelitis - Remains afebrile (Tmax 37.7C) - Appreciate ID and Ortho recommendations Left leg pain - For mild/moderate, offer Percocet q6h - Will add lidocaine patch BID to medial leg due to mild saphenous nerve compression from edema - For severe pain, Morphine 4mg IV q6h - Senna/Miralax for opioid-induced constipation Left ankle edema - Encourage patient to elevate - IV fluids stopped Anxiety - Continue Ambien Dispo: Med Surg CODE STATUS: FULL CODE VTE: Heparin Resident Physician Supervision Note: I was present with Dr. Zuleta during the history and exam. I discussed the case with the resident and agree with the findings and plan as documented in the note. Any exceptions or clarifications are listed here: The patient is initially seen in the hallway; he is full weight bearing and seems have greater mobility with less pain than yesterday. However, upon exam in his room, the erythema extends above the inked line superiorly and slightly medially, and to a less extent it is progressed over the inked line inferiorly across the anterior surface of the foot. He remains afebrile. I discussed with ID today. I also personally reviewed the MRI images with radiology in the radiology suite. Images consistent with a cellulitis; one or two streaks of enhancement along the fascia, but no abbesses appreciated. Will discuss with ID after they see the patient. If clinically looks worse tomorrow, could consider reimaging (MRI). Documented By: Juan Jose Castellanos Resident Tracking Resident Involvement: Resident Care Provided Care Provided: Adult Hospital Medicine
--- NOTE | 2016-04-15 10:50 | Orthopedic Progress Note ---
Orthopedic Progress Note Date of Service Apr 15, 2016. Subjective Post OP Day: Hospital day #3 Additional Notes: Pain left lower extremity, not any better, if anything a little worse. Objective N/V intact, A&O x3 LLE: calf is soft, nontender. Erythema appears to have shifted slightly more distally and medially, as well as proximally. Some increased swelling about the ankle medially greater than laterally. Still hypersensitive to the touch over the distal third of the tibia. Knee and ankle have full range of motion. No effusions. Date Time Temp Pulse Resp B/P Pulse Ox O2 Delivery O2 Flow Rate FiO2 04/15/16 08:12 90 Room Air 04/15/16 07:51 37.4 74 18 118/74 90 Room Air 04/15/16 07:01 37.2 82 16 113/69 92 Room Air 04/15/16 07:00 Room Air 04/14/16 23:29 37.3 04/14/16 23:29 Room Air 04/14/16 22:55 37.7 87 18 113/55 92 Room Air 04/14/16 15:40 Room Air 04/14/16 15:00 36.5 63 18 130/82 95 Room Air Laboratory Results 24 Hours: Test 04/15/16 07:46 White Blood Count 8.14 K/uL Red Blood Count 4.24 M/uL Hemoglobin 13.4 g/dL Hematocrit 37.6 % Mean Corpuscular Volume 88.7 fL Mean Corpuscular Hemoglobin 31.6 pg Mean Corpuscular Hemoglobin Concent 35.6 g/dl Platelet Count 146 K/uL Mean Platelet Volume 9.8 fL Neutrophils (%) (Auto) 76.5 % Lymphocytes (%) (Auto) 14.7 % Monocytes (%) (Auto) 6.5 % Eosinophils (%) (Auto) 2.0 % Basophils (%) (Auto) 0.1 % Neutrophils # (Auto) 6.22 K/uL Lymphocytes # (Auto) 1.20 K/uL Monocytes # (Auto) 0.53 K/uL Eosinophils # (Auto) 0.16 K/uL Basophils # (Auto) 0.01 K/uL Prothromb Time International Ratio 1.0 Prothrombin Time 10.5 SECONDS Additional Notes: MRI: Left lower leg, shows evidence of edema within the soft tissues, no fluid collection/abscess. No evidence of osteomyelitis. Assessment & Plan Assessment: left lower extremity cellulitis. Plan: Continue care per primary service. There is no evidence of compartment syndrome , abscess, or osteomyelitis, no need for surgical intervention at this time. Defer antibiotic selection and duration to infectious disease. May be weightbearing as tolerated. Continue ice and elevation, pain control. May consider trial of Lidoderm patches for pain control. We will continue to follow.
[2016-04-15] MEDS: PANTOprazole SOD 40 MG TAB PO SCH (11:19)
[2016-04-15] MEDS: LIDODERM (LIDOCAINE) PATCH 5% TD SCH (12:00)
[2016-04-15] MEDS: KETOROLAC TROMETHAMINE 30 MG/ML VIAL IV PRN (12:07)
[2016-04-15] MEDS: DAPTOmycin IV 400 MG in SODIUM CHLORIDE 0.9% 50ML 50 ML IV SCH (13:48)
--- NOTE | 2016-04-15 15:29 | Infectious Disease Progress Nt ---
Progress Note Date of Service Apr 15, 2016. Subjective Pt evaluation today including: conversation w/ patient, conversation w/ family , physical exam, chart review, lab review, review of studies, conversation w/ business management consultant (Dr. Zuleta, Dr. Castellanos), review of inpatient medication list Patient is feeling slightly improved today. He states that his pain is slightly less in the left lower extremity. He did get up and walk around today and his pain was bearable. He is concerns with some mild increased and spreading erythema though. Reviewed orthopedic opinion from this afternoon- do not feel any surgical intervention necessary and signed off. WBC Count today 8.14. Creatinine was 0.81 this morning. Rheumatoid factor negative. YARITZA pending. Blood cultures continue to show no growth. Patient does also state that he has history of Hep C from blood transfusion. Attempted to get treated about 1 year ago but was denied by insurance. Discussed with the patient that we would revisit this as an outpatient. All Other Systems: Reviewed and Negative Medications Current Inpatient Medications Medications (Trade) Dose Ordered Sig/Melissa Route Start Time Stop Time Status Last Admin Dose Admin Acetaminophen (Tylenol Tab) 650 mg Q4H PRN PO 04/12/16 21:15 05/12/16 21:14 04/12/16 21:34 650 MG Zolpidem Tartrate (Ambien Tab) 5 mg HSZ PRN PO 04/12/16 21:15 05/12/16 21:14 04/12/16 23:44 5 MG Ondansetron HCl (Zofran Inj) 4 mg Q6H PRN IV 04/12/16 21:15 05/12/16 21:14 04/14/16 12:47 4 MG Tramadol HCl (Ultram Tab) 100 mg Q4H PRN PO 04/12/16 21:15 05/12/16 21:14 04/14/16 23:27 100 MG Ketorolac Tromethamine (Toradol Inj) 30 mg Q6H PRN IV 04/12/16 21:15 04/17/16 21:14 04/15/16 12:07 30 MG Morphine Sulfate (MoRPHine SULFATE INJ) 2 mg Q2H PRN IV 04/12/16 21:15 04/26/16 21:14 Morphine Sulfate (MoRPHine SULFATE INJ) 4 mg Q2H PRN IV 04/12/16 21:15 04/26/16 21:14 04/15/16 04:43 4 MG Fluocinonide (Lidex Crm) 1 appln QID EXT 04/13/16 09:00 05/13/16 08:59 04/15/16 13:21 1 APPLN Piperacillin Sod/ Tazobactam Sod 1 ea 1 ea UD PRN N/A 04/12/16 21:30 05/12/16 21:29 Piperacillin Sod/ Tazobactam Sod/ Dextrose (Zosyn Iv/D5 100ml) 115 ml @ 28.75 mls/ hr Q8H IV 04/13/16 04:00 04/23/16 03:59 04/15/16 12:07 28.75 MLS/HR Pantoprazole Sodium (Protonix Tab) 40 mg DAILY@1100 PO 04/13/16 11:00 05/13/16 10:59 04/15/16 11:19 40 MG Heparin Sodium (Porcine) 5000 unit 5,000 unit Q8 SQ 04/13/16 15:00 05/13/16 14:59 04/15/16 13:44 5,000 UNIT Daptomycin/Sodium Chloride (Cubicin IV/Nss 50ml) 58 ml @ 100 mls/hr DAILY@1400 IV 04/14/16 14:00 04/24/16 13:59 04/15/16 13:48 100 MLS/HR Gadobutrol (Gadavist) 8 mmol UD PRN IV 04/14/16 12:30 04/18/16 12:29 Oxycodone/ Acetaminophen (Percocet 5-325MG Tab) 1 tab Q4H PRN PO 04/15/16 10:15 04/29/16 10:14 04/15/16 11:23 1 TAB Senna (Senokot Tab) 8.6 mg QAM PO 04/16/16 09:00 05/16/16 08:59 Polyethylene (Miralax Powder Packet) 17 gm DAILY PO 04/16/16 09:00 05/16/16 08:59 Miscellaneous (Remove Lidoderm Patch) 1 ea DAILY@21 N/A 04/15/16 21:00 05/15/16 20:59 Lidocaine (Lidoderm Patch 5%) 0.25 patch QAM TD 04/15/16 11:30 05/15/16 11:29 04/15/16 12:00 0.25 PATCH Objective Vital Signs Date Time Temp Pulse Resp B/P Pulse Ox O2 Delivery O2 Flow Rate FiO2 04/15/16 13:20 36.8 04/15/16 12:00 37.0 70 16 120/72 93 Room Air 04/15/16 08:12 90 Room Air 04/15/16 07:51 37.4 74 18 118/74 90 Room Air 04/15/16 07:01 37.2 82 16 113/69 92 Room Air 04/15/16 07:00 Room Air 04/14/16 23:29 37.3 04/14/16 23:29 Room Air 04/14/16 22:55 37.7 87 18 113/55 92 Room Air 04/14/16 15:40 Room Air Physical Exam General Appearance: WD/WN, no apparent distress Eyes: normal inspection, sclerae normal ENT: hearing grossly normal Neck: supple, trachea midline Respiratory/Chest: no respiratory distress, no accessory muscle use Cardiovascular: regular rate, rhythm Extremities: + swelling (left ankle- slightly increased), + pertinent finding ( pretibial edema and tenderness of the left lower extremity. Slightly less sensitivite/tender today) Neurologic/Psychiatric: alert, normal mood/affect Skin: warm/dry, + pertinent finding (Moderate erythema of the left lower extremity which appears to have spread slightly posteriorly and inferiorly but not superiorly) Laboratory Results Item Value Date Time Blood Culture - Preliminary Resulted 04/12/16 2105 Blood NO GROWTH TO DATE. Blood Culture - Preliminary Resulted 04/12/16 2100 Blood NO GROWTH TO DATE. Last 24 Hours Test 04/15/16 07:46 White Blood Count 8.14 K/uL Red Blood Count 4.24 M/uL Hemoglobin 13.4 g/dL Hematocrit 37.6 % Mean Corpuscular Volume 88.7 fL Mean Corpuscular Hemoglobin 31.6 pg Mean Corpuscular Hemoglobin Concent 35.6 g/dl Platelet Count 146 K/uL Mean Platelet Volume 9.8 fL Neutrophils (%) (Auto) 76.5 % Lymphocytes (%) (Auto) 14.7 % Monocytes (%) (Auto) 6.5 % Eosinophils (%) (Auto) 2.0 % Basophils (%) (Auto) 0.1 % Neutrophils # (Auto) 6.22 K/uL Lymphocytes # (Auto) 1.20 K/uL Monocytes # (Auto) 0.53 K/uL Eosinophils # (Auto) 0.16 K/uL Basophils # (Auto) 0.01 K/uL RDW Standard Deviation 38.3 fL RDW Coefficient of Variation 11.8 % Immature Granulocyte % (Auto) 0.2 % Immature Granulocyte # (Auto) 0.02 K/uL Prothrombin Time 10.5 SECONDS Prothromb Time International Ratio 1.0 Activated Partial Thromboplast Time 36.2 SECONDS Partial Thromboplastin Ratio 1.4 Sodium Level 133 mmol/L Potassium Level 3.9 mmol/L Chloride Level 101 mmol/L Carbon Dioxide Level 24 mmol/L Anion Gap 8.0 mmol/L Blood Urea Nitrogen 7 mg/dl Creatinine 0.81 mg/dl Est Creatinine Clear Calc Drug Dose 100.1 ml/min Estimated GFR () 112.0 Estimated GFR (Non- 96.6 BUN/Creatinine Ratio 8.5 Random Glucose 120 mg/dl Calcium Level 8.3 mg/dl Magnesium Level 1.9 mg/dl Total Bilirubin 1.0 mg/dl Direct Bilirubin 0.5 mg/dl Aspartate Amino Transf (AST/SGOT) 31 U/L Alanine Aminotransferase (ALT/SGPT) 38 U/L Alkaline Phosphatase 62 U/L Total Protein 6.1 gm/dl Albumin 2.5 gm/dl Assessment and Plan Patient with left lower extremity cellulitis and ankle swelling in the setting of chronic dermatitis of the bilateral anterior tibial surfaces. He is currently on IV Daptomycin and Zosyn. This is appropriate pending improvement. The patient appears to have spread of the erythema posteriorly and inferiorly which appears it may be due to gravity (laying in bed and walking today), but due to continued moderately severe erythema and mild spreading, will add IV Clindamycin x 48 hours for antitoxin effect as well. Feel that this is likely most consistent with a strep infection, but will continue broad spectrum for now. He likely will need at least 1-2 more days of IV abx therapy. We will follow. Plan: 1. Continue Daptomycin/Zosyn 2. Add Clindamycin for antitoxin effect6 PROVIDER ADDENDUM: Patient reviewed with Ms. Moralez. Agree with above assessment. We can follow patient for hepatitis C as an outpatient.
[2016-04-15] MEDS: CLINDAMYCIN IV 600 MG in DEXTROSE 5% ADD-VANTAGE 50ML 50 ML IV SCH ×2 (15:58→23:52)
[2016-04-16] MEDS: PIPERACILL/TAZOBAC IV 3.375 GM in DEXTROSE 5% 100ML IV SCH (04:10)
[2016-04-16] MEDS: HEPARIN SOD 5000 UNIT/0.5 ML CARP SQ SCH ×3 (06:00→21:41)
[2016-04-16 06:02] LABS: BASO % 0.3 %; BASO ABS # 0.02 K/uL (0-0.2); COMPLETE YES; EOS % 3.8 %; HEMATOCRIT 37.7 % (42-52); LYMPH % 20.7 %; LYMPH ABS # 1.19 K/uL (1.2-3.4); MEAN CELL VOLUME 88.3 fL (80-100); MEAN CORPUSCULAR HEMOGLOBIN 31.4 pg (25-34); MEAN CORPUSCULAR HGB CONC 35.5 g/dl (32-36); MONO % 8.7 %; NEUT % 66.5 %; PLATELET COUNT 184 K/uL (130-400); RED BLOOD COUNT 4.27 M/uL (4.7-6.1); WHITE BLOOD COUNT 5.74 K/uL (4.8-10.8)
[2016-04-16 06:32] LABS: BUN/CREATININE RATIO 10.5 (10-20); CALCIUM 8.1 mg/dl (8.5-10.1); CREATININE 0.86 mg/dl (0.60-1.40); POTASSIUM 3.9 mmol/L (3.5-5.1)
[2016-04-16 06:35] LABS: ALB/GLOB RATIO 0.7 (0.9-2)
[2016-04-16 08:14] VITALS: BP 136/81; PULSE 68; TEMP 36.8; O2SAT 95
[2016-04-16] MEDS: SENNA 8.6 MG TAB PO SCH (08:29)
[2016-04-16] MEDS: CLINDAMYCIN IV 600 MG in DEXTROSE 5% ADD-VANTAGE 50ML 50 ML IV SCH ×3 (08:29→23:59)
[2016-04-16] MEDS: POLYETHYLENE (MIRALAX) 17 GM PACK PO SCH (08:30)
[2016-04-16] MEDS: LIDODERM (LIDOCAINE) PATCH 5% TD SCH (08:30)
[2016-04-16] MEDS: FLUOCINONIDE 0.05% CR 15 GM TUBE EXT SCH ×4 (08:31→20:45)
[2016-04-16] MEDS ORDERED: LIDODERM (LIDOCAINE) PATCH 5% TD SCH (09:00)
[2016-04-16] MEDS: PANTOprazole SOD 40 MG TAB PO SCH (10:52)
--- NOTE | 2016-04-16 12:07 | Infectious Disease Progress Nt ---
Progress Note Date of Service Apr 16, 2016. Subjective Pt evaluation today including: conversation w/ patient, physical exam, chart review, lab review, review of studies, conversation w/ distributed energy systems consultant (Dr. Zuleta ), review of inpatient medication list WBC count is 5.74 this morning. Creatinine was 0.86. Blood cultures continue to show no growth. The patient states that he is feeling much improved today. His pain is much less. He was up walking around for a while this morning and walked up and down the stairwells. He has noted some increased swelling of his ankle since he has been up walking around but states that this morning his ankle and left lower extremity looked "great". His appetite has improved as well and he denies diarrhea or abdominal pain. All Other Systems: Reviewed and Negative Medications Current Inpatient Medications Medications (Trade) Dose Ordered Sig/Melissa Route Start Time Stop Time Status Last Admin Dose Admin Acetaminophen (Tylenol Tab) 650 mg Q4H PRN PO 04/12/16 21:15 05/12/16 21:14 04/12/16 21:34 650 MG Zolpidem Tartrate (Ambien Tab) 5 mg HSZ PRN PO 04/12/16 21:15 05/12/16 21:14 04/12/16 23:44 5 MG Ondansetron HCl (Zofran Inj) 4 mg Q6H PRN IV 04/12/16 21:15 05/12/16 21:14 04/14/16 12:47 4 MG Tramadol HCl (Ultram Tab) 100 mg Q4H PRN PO 04/12/16 21:15 05/12/16 21:14 04/14/16 23:27 100 MG Ketorolac Tromethamine (Toradol Inj) 30 mg Q6H PRN IV 04/12/16 21:15 04/17/16 21:14 04/15/16 12:07 30 MG Morphine Sulfate (MoRPHine SULFATE INJ) 2 mg Q2H PRN IV 04/12/16 21:15 04/26/16 21:14 Morphine Sulfate (MoRPHine SULFATE INJ) 4 mg Q2H PRN IV 04/12/16 21:15 04/26/16 21:14 04/15/16 04:43 4 MG Fluocinonide (Lidex Crm) 1 appln QID EXT 04/13/16 09:00 05/13/16 08:59 04/16/16 08:31 1 APPLN Piperacillin Sod/ Tazobactam Sod 1 ea 1 ea UD PRN N/A 04/12/16 21:30 05/12/16 21:29 Piperacillin Sod/ Tazobactam Sod/ Dextrose (Zosyn Iv/D5 100ml) 115 ml @ 28.75 mls/ hr Q8H IV 04/13/16 04:00 04/23/16 03:59 04/16/16 04:10 28.75 MLS/HR Pantoprazole Sodium (Protonix Tab) 40 mg DAILY@1100 PO 04/13/16 11:00 05/13/16 10:59 04/16/16 10:52 40 MG Heparin Sodium (Porcine) 5000 unit 5,000 unit Q8 SQ 04/13/16 15:00 05/13/16 14:59 04/15/16 20:27 5,000 UNIT Daptomycin/Sodium Chloride (Cubicin IV/Nss 50ml) 58 ml @ 100 mls/hr DAILY@1400 IV 04/14/16 14:00 04/24/16 13:59 04/15/16 13:48 100 MLS/HR Gadobutrol (Gadavist) 8 mmol UD PRN IV 04/14/16 12:30 04/18/16 12:29 Oxycodone/ Acetaminophen (Percocet 5-325MG Tab) 1 tab Q4H PRN PO 04/15/16 10:15 04/29/16 10:14 04/15/16 11:23 1 TAB Senna (Senokot Tab) 8.6 mg QAM PO 04/16/16 09:00 05/16/16 08:59 04/16/16 08:29 8.6 MG Polyethylene (Miralax Powder Packet) 17 gm DAILY PO 04/16/16 09:00 05/16/16 08:59 Miscellaneous (Remove Lidoderm Patch) 1 ea DAILY@21 N/A 04/15/16 21:00 05/15/16 20:59 04/15/16 20:26 1 EA Lidocaine 0.25 patch 0.25 patch QAM TD 04/15/16 11:30 05/15/16 11:29 04/16/16 08:30 0.25 PATCH Clindamycin Phosphate/Dextrose (Cleocin Iv/ Dextrose Add-[place] 50ML) 54 ml @ 100 mls/hr Q8H IV 04/15/16 16:00 04/17/16 15:59 04/16/16 08:29 100 MLS/HR Objective Vital Signs Date Time Temp Pulse Resp B/P Pulse Ox O2 Delivery O2 Flow Rate FiO2 04/16/16 08:14 36.8 68 16 136/81 95 Room Air 04/16/16 07:05 Room Air 04/15/16 23:57 Room Air 04/15/16 23:30 37.2 79 16 128/72 93 Room Air 04/15/16 15:50 96 Room Air 04/15/16 15:45 36.4 91 18 119/73 96 Room Air 04/15/16 13:20 36.8 04/15/16 12:00 37.0 70 16 120/72 93 Room Air Physical Exam General Appearance: WD/WN, no apparent distress Eyes: normal inspection, sclerae normal ENT: hearing grossly normal Neck: supple, trachea midline Respiratory/Chest: no respiratory distress, no accessory muscle use Cardiovascular: regular rate, rhythm Extremities: + swelling (left ankle- moderate, left lower extremity- mild to moderate), + pertinent finding (mild tenderness of the left ankle and left anterior tibial surface- improved) Neurologic/Psychiatric: alert, normal mood/affect, oriented x 3 Skin: warm/dry, + pertinent finding (Erythema of the left lower extremity appears to be uke driver in color today- improved. ) Laboratory Results Item Value Date Time Blood Culture - Preliminary Resulted 04/12/16 2105 Blood NO GROWTH TO DATE. Blood Culture - Preliminary Resulted 04/12/16 2100 Blood NO GROWTH TO DATE. Last 24 Hours Test 04/16/16 05:18 White Blood Count 5.74 K/uL Red Blood Count 4.27 M/uL Hemoglobin 13.4 g/dL Hematocrit 37.7 % Mean Corpuscular Volume 88.3 fL Mean Corpuscular Hemoglobin 31.4 pg Mean Corpuscular Hemoglobin Concent 35.5 g/dl Platelet Count 184 K/uL Mean Platelet Volume 10.0 fL Neutrophils (%) (Auto) 66.5 % Lymphocytes (%) (Auto) 20.7 % Monocytes (%) (Auto) 8.7 % Eosinophils (%) (Auto) 3.8 % Basophils (%) (Auto) 0.3 % Neutrophils # (Auto) 3.81 K/uL Lymphocytes # (Auto) 1.19 K/uL Monocytes # (Auto) 0.50 K/uL Eosinophils # (Auto) 0.22 K/uL Basophils # (Auto) 0.02 K/uL RDW Standard Deviation 37.5 fL RDW Coefficient of Variation 11.7 % Immature Granulocyte % (Auto) 0.0 % Immature Granulocyte # (Auto) 0.00 K/uL Sodium Level 138 mmol/L Potassium Level 3.9 mmol/L Chloride Level 102 mmol/L Carbon Dioxide Level 27 mmol/L Anion Gap 9.0 mmol/L Blood Urea Nitrogen 9 mg/dl Creatinine 0.86 mg/dl Est Creatinine Clear Calc Drug Dose 94.3 ml/min Estimated GFR () 109.2 Estimated GFR (Non- 94.3 BUN/Creatinine Ratio 10.5 Random Glucose 84 mg/dl Calcium Level 8.1 mg/dl Total Bilirubin 0.9 mg/dl Aspartate Amino Transf (AST/SGOT) 35 U/L Alanine Aminotransferase (ALT/SGPT) 45 U/L Alkaline Phosphatase 86 U/L Total Protein 6.3 gm/dl Albumin 2.6 gm/dl Globulin 3.7 gm/dl Albumin/Globulin Ratio 0.7 Assessment and Plan Patient with left lower extremity cellulitis and ankle swelling in the setting of chronic dermatitis of the bilateral anterior tibial surfaces. He is currently on IV Daptomycin, Clindamycin and Zosyn. Feel that the patient has had much improvement from yesterday to today- erythema is uke driver in color and he has much less pain and more mobility. Feel that the Zosyn can be discontinued today. Would continue IV Daptomycin and Clindamycin until tomorrow , but if patient continues to improve may consider transition to PO abx tomorrow afternoon. We will follow. Plan: 1. D/C Zosyn 2. Continue IV Daptomycin and Clindamycin- likely transition to PO tomorrow PROVIDER ADDENDUM: Patient reviewed with Ms. oMralez. Agree with above assessment.
[2016-04-16] MEDS: DAPTOmycin IV 400 MG in SODIUM CHLORIDE 0.9% 50ML 50 ML IV SCH (13:57)
--- NOTE | 2016-04-16 14:28 | Family Medicine Progress Note ---
Progress Note Date of Service Apr 16, 2016. Subjective Pt evaluation today including: conversation w/ patient [place] better today, has been walking around. Refused his heparin overall. Discussed that he has to keep walking if he does not want to have heparin administered. Constitutional: No chills, No fever, No sweats, No weakness, No weight loss Respiratory: No cough, No sputum Cardiovascular: No chest pain All Other Systems: Reviewed and Negative Medications Current Inpatient Medications Medications (Trade) Dose Ordered Sig/Melissa Route Start Time Stop Time Status Last Admin Dose Admin Acetaminophen (Tylenol Tab) 650 mg Q4H PRN PO 04/12/16 21:15 05/12/16 21:14 04/12/16 21:34 650 MG Zolpidem Tartrate (Ambien Tab) 5 mg HSZ PRN PO 04/12/16 21:15 05/12/16 21:14 04/12/16 23:44 5 MG Ondansetron HCl (Zofran Inj) 4 mg Q6H PRN IV 04/12/16 21:15 05/12/16 21:14 04/14/16 12:47 4 MG Tramadol HCl (Ultram Tab) 100 mg Q4H PRN PO 04/12/16 21:15 05/12/16 21:14 04/14/16 23:27 100 MG Ketorolac Tromethamine (Toradol Inj) 30 mg Q6H PRN IV 04/12/16 21:15 04/17/16 21:14 04/15/16 12:07 30 MG Morphine Sulfate (MoRPHine SULFATE INJ) 2 mg Q2H PRN IV 04/12/16 21:15 04/26/16 21:14 Morphine Sulfate (MoRPHine SULFATE INJ) 4 mg Q2H PRN IV 04/12/16 21:15 04/26/16 21:14 04/15/16 04:43 4 MG Fluocinonide (Lidex Crm) 1 appln QID EXT 04/13/16 09:00 05/13/16 08:59 04/16/16 13:45 1 APPLN Pantoprazole Sodium (Protonix Tab) 40 mg DAILY@1100 PO 04/13/16 11:00 05/13/16 10:59 04/16/16 10:52 40 MG Heparin Sodium (Porcine) 5000 unit 5,000 unit Q8 SQ 1/2/17 15:00 05/13/16 14:59 04/15/16 20:27 5,000 UNIT Daptomycin/Sodium Chloride (Cubicin IV/Nss 50ml) 58 ml @ 100 mls/hr DAILY@1400 IV 04/14/16 14:00 04/24/16 13:59 04/16/16 13:57 100 MLS/HR Gadobutrol (Gadavist) 8 mmol UD PRN IV 04/14/16 12:30 04/18/16 12:29 Oxycodone/ Acetaminophen (Percocet 5-325MG Tab) 1 tab Q4H PRN PO 04/15/16 10:15 04/29/16 10:14 04/15/16 11:23 1 TAB Senna (Senokot Tab) 8.6 mg QAM PO 04/16/16 09:00 05/16/16 08:59 04/16/16 08:29 8.6 MG Polyethylene (Miralax Powder Packet) 17 gm DAILY PO 04/16/16 09:00 05/16/16 08:59 Miscellaneous (Remove Lidoderm Patch) 1 ea DAILY@21 N/A 04/15/16 21:00 05/15/16 20:59 04/15/16 20:26 1 EA Lidocaine 0.25 patch 0.25 patch QAM TD 04/15/16 11:30 05/15/16 11:29 04/16/16 08:30 0.25 PATCH Clindamycin Phosphate/Dextrose (Cleocin Iv/ Dextrose Add-[place] 50ML) 54 ml @ 100 mls/hr Q8H IV 04/15/16 16:00 04/17/16 15:59 04/16/16 08:29 100 MLS/HR Objective Vital Signs Date Time Temp Pulse Resp B/P Pulse Ox O2 Delivery O2 Flow Rate FiO2 04/16/16 08:14 36.8 68 16 136/81 95 Room Air 04/16/16 07:05 Room Air 04/15/16 23:57 Room Air 04/15/16 23:30 37.2 79 16 128/72 93 Room Air 04/15/16 15:50 96 Room Air 04/15/16 15:45 36.4 91 18 119/73 96 Room Air Physical Exam General Appearance: WD/WN, no apparent distress Eyes: normal inspection, PERRL ENT: hearing grossly normal Neck: supple, no JVD Respiratory/Chest: lungs clear, normal breath sounds, no respiratory distress Cardiovascular: regular rate, rhythm, no murmur Abdomen: normal bowel sounds, non tender, soft Extremities: + pertinent finding (persistent erythema, now improved anteriorly to below line drawn, with mild tenderness. Edema improved significantly. R leg without abnormality.) Neurologic/Psychiatric: alert, normal mood/affect, oriented x 3 Laboratory Results Last 24 Hours Test 04/16/16 05:18 White Blood Count 5.74 K/uL Red Blood Count 4.27 M/uL Hemoglobin 13.4 g/dL Hematocrit 37.7 % Mean Corpuscular Volume 88.3 fL Mean Corpuscular Hemoglobin 31.4 pg Mean Corpuscular Hemoglobin Concent 35.5 g/dl Platelet Count 184 K/uL Mean Platelet Volume 10.0 fL Neutrophils (%) (Auto) 66.5 % Lymphocytes (%) (Auto) 20.7 % Monocytes (%) (Auto) 8.7 % Eosinophils (%) (Auto) 3.8 % Basophils (%) (Auto) 0.3 % Neutrophils # (Auto) 3.81 K/uL Lymphocytes # (Auto) 1.19 K/uL Monocytes # (Auto) 0.50 K/uL Eosinophils # (Auto) 0.22 K/uL Basophils # (Auto) 0.02 K/uL RDW Standard Deviation 37.5 fL RDW Coefficient of Variation 11.7 % Immature Granulocyte % (Auto) 0.0 % Immature Granulocyte # (Auto) 0.00 K/uL Sodium Level 138 mmol/L Potassium Level 3.9 mmol/L Chloride Level 102 mmol/L Carbon Dioxide Level 27 mmol/L Anion Gap 9.0 mmol/L Blood Urea Nitrogen 9 mg/dl Creatinine 0.86 mg/dl Est Creatinine Clear Calc Drug Dose 94.3 ml/min Estimated GFR () 109.2 Estimated GFR (Non- 94.3 BUN/Creatinine Ratio 10.5 Random Glucose 84 mg/dl Calcium Level 8.1 mg/dl Total Bilirubin 0.9 mg/dl Aspartate Amino Transf (AST/SGOT) 35 U/L Alanine Aminotransferase (ALT/SGPT) 45 U/L Alkaline Phosphatase 86 U/L Total Protein 6.3 gm/dl Albumin 2.6 gm/dl Globulin 3.7 gm/dl Albumin/Globulin Ratio 0.7 Assessment and Plan 61 yo M with cellulitis, on day 5 on IV antibiotics Plan Severe left leg cellulitis - Has had 5 days of antibiotics so far, initially on Vancomycin and Zosyn, now on Daptomycin 400mg IV daily, Zosyn 3.375 g IV TID, and now Clindamycin 600mg BID. - Blood cultures negative at 5 days - MRI results as above, no drainable abscess or evidence of osteomyelitis. MRI was reviewed with the radiologist in person. - Remains afebrile (Tmax 37.7C) - Appreciate ID and Ortho recommendations Left leg pain - For mild/moderate, offer Percocet q6h - Will add lidocaine patch BID to medial leg due to mild saphenous nerve compression from edema - For severe pain, Morphine 4mg IV q6h - Senna/Miralax for opioid-induced constipation Left ankle edema - Encourage patient to elevate - IV fluids stopped Anxiety - Continue Ambien Dispo: Med Surg CODE STATUS: FULL CODE VTE: Heparin Resident Physician Supervision Note: I was present with Dr. Zuleta during the history and exam. I discussed the case with the resident and agree with the findings and plan as documented in the note. Less pain and the erythema has receded for the most part. The swelling was less this morning, but has increased this afternoon after he was up walking in the hallway. I personally discussed the case with the ID team. If continues to improve, anticipate discharge tomorrow. Documented By: Juan Jose Castellanos Resident Tracking Resident Involvement: Resident Care Provided Care Provided: Adult Hospital Medicine
[2016-04-16 15:05] VITALS: BP 130/70; PULSE 57; TEMP 37; O2SAT 94
[2016-04-16 23:15] VITALS: BP 143/75; PULSE 72; TEMP 37; O2SAT 94
[2016-04-17] MEDS: HEPARIN SOD 5000 UNIT/0.5 ML CARP SQ SCH (05:43)
[2016-04-17 06:41] LABS: BASO % 0.5 %; BASO ABS # 0.03 K/uL (0-0.2); COMPLETE YES; EOS % 3.8 %; HEMATOCRIT 41.6 % (42-52); IG% 0.5 %; LYMPH % 22.8 %; LYMPH ABS # 1.44 K/uL (1.2-3.4); MEAN CELL VOLUME 87.8 fL (80-100); MEAN CORPUSCULAR HEMOGLOBIN 30.6 pg (25-34); MEAN CORPUSCULAR HGB CONC 34.9 g/dl (32-36); MEAN PLATELET VOLUME 9.5 fL (7.4-10.4); MONO % 11.4 %; PLATELET COUNT 229 K/uL (130-400); RED BLOOD COUNT 4.74 M/uL (4.7-6.1); WHITE BLOOD COUNT 6.32 K/uL (4.8-10.8)
[2016-04-17 07:23] LABS: BUN/CREATININE RATIO 10.1 (10-20); CALCIUM 8.5 mg/dl (8.5-10.1); CREATININE 0.94 mg/dl (0.60-1.40); POTASSIUM 4.4 mmol/L (3.5-5.1)
[2016-04-17 07:26] LABS: ALB/GLOB RATIO 0.7 (0.9-2)
[2016-04-17 08:27] VITALS: BP 110/52; PULSE 60; TEMP 36.9; O2SAT 96
--- NOTE | 2016-04-17 08:35 | Progress Note ---
Orthopedic SOAP Note Subjective Date of Service: Apr 17, 2016. 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 Mild swelling appreciated in the ankle and foot but nothing excessive. patient has full ROM of the ankle and toes. +5 strength with dorsi and plantarflexion. mild tenderness with palpation on the distal third of the left tibia no openings or skin otherwise Date Time Temp Pulse Resp B/P Pulse Ox O2 Delivery O2 Flow Rate FiO2 04/17/16 08:27 36.9 60 12 110/52 96 Room Air 04/16/16 23:15 37.0 72 16 143/75 94 Room Air 04/16/16 19:50 Room Air 04/16/16 15:05 37.0 57 16 130/70 94 Room Air Laboratory Results 24 Hours: Test 04/17/16 06:30 White Blood Count 6.32 K/uL Red Blood Count 4.74 M/uL Hemoglobin 14.5 g/dL Hematocrit 41.6 % Mean Corpuscular Volume 87.8 fL Mean Corpuscular Hemoglobin 30.6 pg Mean Corpuscular Hemoglobin Concent 34.9 g/dl Platelet Count 229 K/uL Mean Platelet Volume 9.5 fL Neutrophils (%) (Auto) 61.0 % Lymphocytes (%) (Auto) 22.8 % Monocytes (%) (Auto) 11.4 % Eosinophils (%) (Auto) 3.8 % Basophils (%) (Auto) 0.5 % Neutrophils # (Auto) 3.86 K/uL Lymphocytes # (Auto) 1.44 K/uL Monocytes # (Auto) 0.72 K/uL Eosinophils # (Auto) 0.24 K/uL Basophils # (Auto) 0.03 K/uL Assessment left lower extremity cellulitis-improving Plan Continue care per primary service. There is no evidence of compartment syndrome , abscess, or osteomyelitis, no need for surgical intervention at this time. Defer antibiotic selection and duration to infectious disease. -Per ID, will discontinue Zosyn and continue IV Clinda and Dapto, ultimately transition to PO ABX May be weightbearing as tolerated. Patient reports frequent trips for ambulation Continue ice and elevation, pain control. May consider trial of Lidoderm patches for pain control. If improvements continue, may consider DC home with PO ABX and PCP f/u per medicine/ID recommendations, otherwise stable from orthopedic standpoint We sign off orthopedically
[2016-04-17] MEDS: POLYETHYLENE (MIRALAX) 17 GM PACK PO SCH (08:43)
[2016-04-17] MEDS: CLINDAMYCIN IV 600 MG in DEXTROSE 5% ADD-VANTAGE 50ML 50 ML IV SCH (08:45)
[2016-04-17] MEDS: FLUOCINONIDE 0.05% CR 15 GM TUBE EXT SCH (08:46)
[2016-04-17] MEDS: SENNA 8.6 MG TAB PO SCH (08:46)
[2016-04-17] MEDS: PANTOprazole SOD 40 MG TAB PO SCH (08:47)
[2016-04-17] MEDS: LIDODERM (LIDOCAINE) PATCH 5% TD SCH (08:47)
--- NOTE | 2016-04-17 09:15 | Infectious Disease Progress Nt ---
Progress Note Date of Service Apr 17, 2016. Subjective Pt evaluation today including: conversation w/ patient, physical exam, chart review, lab review, review of studies, conversation w/ regional engagement consultant (Dr. Zuleta , Dr. Castellanos), review of inpatient medication list WBC count this morning is 6.32. Hgb is 14.5. Creatinine is 0.94. Patient continues on IV Daptomycin and Clindamycin and continues to improved. Blood cultures continue to show no growth. Patient has been up walking around this morning again and states that his left ankle is stiff when he starts walking but otherwise feels good. He continues to have the most pain on the anterior tibial surface, but overall his pain is bearable. He has no other complaints this morning. All Other Systems: Reviewed and Negative Medications Current Inpatient Medications Medications (Trade) Dose Ordered Sig/Melissa Route Start Time Stop Time Status Last Admin Dose Admin Acetaminophen (Tylenol Tab) 650 mg Q4H PRN PO 04/12/16 21:15 05/12/16 21:14 04/12/16 21:34 650 MG Zolpidem Tartrate (Ambien Tab) 5 mg HSZ PRN PO 04/12/16 21:15 05/12/16 21:14 04/12/16 23:44 5 MG Ondansetron HCl (Zofran Inj) 4 mg Q6H PRN IV 04/12/16 21:15 05/12/16 21:14 04/14/16 12:47 4 MG Tramadol HCl (Ultram Tab) 100 mg Q4H PRN PO 04/12/16 21:15 05/12/16 21:14 04/14/16 23:27 100 MG Ketorolac Tromethamine (Toradol Inj) 30 mg Q6H PRN IV 04/12/16 21:15 04/17/16 21:14 04/15/16 12:07 30 MG Morphine Sulfate (MoRPHine SULFATE INJ) 2 mg Q2H PRN IV 04/12/16 21:15 04/26/16 21:14 Morphine Sulfate (MoRPHine SULFATE INJ) 4 mg Q2H PRN IV 04/12/16 21:15 04/26/16 21:14 04/15/16 04:43 4 MG Fluocinonide (Lidex Crm) 1 appln QID EXT 04/13/16 09:00 05/13/16 08:59 04/17/16 08:46 1 APPLN Pantoprazole Sodium (Protonix Tab) 40 mg DAILY@1100 PO 04/13/16 11:00 05/13/16 10:59 04/17/16 08:47 40 MG Heparin Sodium (Porcine) 5000 unit 5,000 unit Q8 SQ 04/13/16 15:00 05/13/16 14:59 04/15/16 20:27 5,000 UNIT Daptomycin/Sodium Chloride (Cubicin IV/Nss 50ml) 58 ml @ 100 mls/hr DAILY@1400 IV 04/14/16 14:00 04/24/16 13:59 04/16/16 13:57 100 MLS/HR Gadobutrol (Gadavist) 8 mmol UD PRN IV 04/14/16 12:30 04/18/16 12:29 Oxycodone/ Acetaminophen (Percocet 5-325MG Tab) 1 tab Q4H PRN PO 04/15/16 10:15 04/29/16 10:14 04/15/16 11:23 1 TAB Senna (Senokot Tab) 8.6 mg QAM PO 04/16/16 09:00 05/16/16 08:59 04/17/16 08:46 8.6 MG Polyethylene (Miralax Powder Packet) 17 gm DAILY PO 04/16/16 09:00 05/16/16 08:59 Miscellaneous (Remove Lidoderm Patch) 1 ea DAILY@21 N/A 04/15/16 21:00 05/15/16 20:59 04/16/16 20:45 1 EA Lidocaine 0.25 patch 0.25 patch QAM TD 04/15/16 11:30 05/15/16 11:29 04/17/16 08:47 0.25 PATCH Clindamycin Phosphate/Dextrose (Cleocin Iv/ Dextrose Add-Bradford 50ML) 54 ml @ 100 mls/hr Q8H IV 04/15/16 16:00 04/17/16 15:59 04/17/16 08:45 100 MLS/HR Objective Vital Signs Date Time Temp Pulse Resp B/P Pulse Ox O2 Delivery O2 Flow Rate FiO2 04/17/16 08:34 Room Air 04/17/16 08:27 36.9 60 12 110/52 96 Room Air 1/5/17 23:15 37.0 72 16 143/75 94 Room Air 04/16/16 19:50 Room Air 04/16/16 15:05 37.0 57 16 130/70 94 Room Air Physical Exam General Appearance: WD/WN, no apparent distress Eyes: normal inspection, sclerae normal ENT: hearing grossly normal Neck: supple, trachea midline Respiratory/Chest: no respiratory distress, no accessory muscle use Cardiovascular: regular rate, rhythm Extremities: + swelling (left lower extremity and ankle. Continued 1+ pitting edema of the left ankle and calf.) Neurologic/Psychiatric: alert, normal mood/affect, oriented x 3 Skin: warm/dry, + pertinent finding (Continued mild to moderate erythema of the left lower extremity. No further spread. Appears mildly improved. ) Laboratory Results Last 24 Hours Test 04/17/16 06:30 White Blood Count 6.32 K/uL Red Blood Count 4.74 M/uL Hemoglobin 14.5 g/dL Hematocrit 41.6 % Mean Corpuscular Volume 87.8 fL Mean Corpuscular Hemoglobin 30.6 pg Mean Corpuscular Hemoglobin Concent 34.9 g/dl Platelet Count 229 K/uL Mean Platelet Volume 9.5 fL Neutrophils (%) (Auto) 61.0 % Lymphocytes (%) (Auto) 22.8 % Monocytes (%) (Auto) 11.4 % Eosinophils (%) (Auto) 3.8 % Basophils (%) (Auto) 0.5 % Neutrophils # (Auto) 3.86 K/uL Lymphocytes # (Auto) 1.44 K/uL Monocytes # (Auto) 0.72 K/uL Eosinophils # (Auto) 0.24 K/uL Basophils # (Auto) 0.03 K/uL RDW Standard Deviation 37.1 fL RDW Coefficient of Variation 11.6 % Immature Granulocyte % (Auto) 0.5 % Immature Granulocyte # (Auto) 0.03 K/uL Sodium Level 139 mmol/L Potassium Level 4.4 mmol/L Chloride Level 104 mmol/L Carbon Dioxide Level 26 mmol/L Anion Gap 9.0 mmol/L Blood Urea Nitrogen 10 mg/dl Creatinine 0.94 mg/dl Est Creatinine Clear Calc Drug Dose 86.3 ml/min Estimated GFR () 101.7 Estimated GFR (Non- 87.8 BUN/Creatinine Ratio 10.1 Random Glucose 87 mg/dl Calcium Level 8.5 mg/dl Total Bilirubin 0.7 mg/dl Aspartate Amino Transf (AST/SGOT) 46 U/L Alanine Aminotransferase (ALT/SGPT) 55 U/L Alkaline Phosphatase 95 U/L Total Protein 6.8 gm/dl Albumin 2.7 gm/dl Globulin 4.1 gm/dl Albumin/Globulin Ratio 0.7 Assessment and Plan Patient with left lower extremity cellulitis and ankle swelling in the setting of chronic dermatitis of the bilateral anterior tibial surfaces. He is currently on IV Daptomycin and Clindamycin. Feel that the patient has had continued improvement from yesterday to today. Feel that he likely can transition at this time to PO Bactrim DS BID and PO Keflex 500 mg QID x 2 weeks with reevaluation prior to discharge. He is otherwise OK for D/C from ID perspective. Thanks Plan: 1. Transition to PO Bactrim and PO Keflex x 2 weeks 2. ID F/U PROVIDER ADDENDUM: Patient reviewed with Ms. Moralez. Agree with above assessment.
[2016-04-17] MEDS ORDERED: CEPH500C2 PO (09:32)
[2016-04-17] MEDS ORDERED: SULF800T23 PO (09:32)
--- NOTE | 2016-04-17 09:34 | Discharge Instructions ---
Discharge Instructions Admission Reason for Admission: Cellulitis Of Lt Lower Extremity,Lt Leg Pain Discharge Discharge Diagnosis / Problem: Cellulitis, left leg Discharge Goals Goal(s): Improve disease control Activity Recommendations Activity Limitations: resume your previous activity Lifting Limitations: no more than 10 pounds Exercise/Sports Limitations: as tolerated May Resume Sexual Activity: when tolerated Shower/Bathe: no limitations Driving or Machine Use: no limitations . Instructions / Follow-Up Instructions / Follow-Up Follow up with Dr Elizalde at the [facility] on Wednesday, as arranged Call to make an appt with Ce Moralez of Infectious Diseases for Wednesday If you develop any fevers, worsening of the redness, come back to the ED right away Current Hospital Diet Patient's current hospital diet: Regular Diet Discharge Diet Recommended Diet: Regular Diet Pending Studies Studies pending at discharge: no Medical Emergencies . Who to Call and When: Medical Emergencies: If at any time you feel your situation is an emergency, please call 911 immediately. . Non-Emergent Contact Non-Emergency issues call your: Primary Care Provider . . "Provider Documentation" section prepared by Evelyne Zuleta. VTE Core Measure Inpt VTE Proph given/why not?: Unfractionated heparin SQ
[2016-04-17 09:54] VITALS: BP 110/52; PULSE 60; TEMP 36.9; O2SAT 96
--- NOTE | 2016-04-17 10:22 | Discharge Summary ---
Discharge Summary Admission Date: Apr 12, 2016 at 21:02 Discharge Date: Apr 17, 2016 Discharge Disposition: Home Principal Diagnosis: Cellulitis Immunizations: Have You Had Influenza Vaccine: No History of Tetanus Vaccine?: Yes Tetanus Immunization Date: May 27, 2010 History of Pneumococcal: No History of Hepatitis B Vaccine: No Procedures: MRI OF THE LEFT LOWER LEG WITHOUT AND WITH CONTRAST CLINICAL HISTORY: Cellulitis. Extreme point tenderness in the left mid pantoja. Possible osteomyelitis. COMPARISON STUDY: Conventional radiographic study dated 04/12/2016 FINDINGS: Imaging was performed in sagittal, axial, and coronal planes before and after administration of 8 cc of intravenous Gadavist. There are no areas of marrow edema to indicate osteomyelitis. There is diffuse cutaneous and subcutaneous edema, most pronounced medially. This extends from the knee to the ankle. There are small slivers of subcutaneous fluid, but no focal fluid collections large enough to indicate a drainable abscess There are no intramuscular masses. IMPRESSION: 1. Diffuse lower extremity edema consistent with cellulitis 2. Small focal slivers of fluid within the subcutaneous tissues, but no evidence of a drainable abscess 3. No evidence of osteomyelitis 4. No intramuscular masses. ULTRASOUND LEFT LOWER EXTREMITY VENOUS CLINICAL HISTORY: Left leg pain and swelling. COMPARISON STUDY: No priors. TECHNIQUE: Real-time, grayscale, and color Doppler sonography of the deep veins of the left lower extremity was performed from the inguinal crease to the calf. Compression and augmentation were utilized. FINDINGS: There is no sonographic evidence of deep venous thrombosis identified in the left lower extremity. The common femoral, superficial femoral, and popliteal veins are patent and normally compressible. The greater saphenous vein and the profunda femoris vein at the junction with the common femoral vein are clear. The visualized calf veins are patent. A small popliteal cyst measures 1.8 x 0.6 x 1.3 cm. IMPRESSION: 1. There is no sonographic evidence of deep venous thrombosis identified in the left lower extremity. 2. Small popliteal cyst. LEFT TIBIA AND FIBULA 2 VIEWS CLINICAL HISTORY: Left leg pain and swelling. FINDINGS: AP and lateral views of the left tibia and fibula are obtained. No prior studies are available for comparison at the time of dictation. The skeletal structures are well mineralized. There is no tibial or fibular fracture. The knee and ankle joints are grossly maintained. Mild pretibial soft tissue edema is noted. IMPRESSION: Mild pretibial soft tissue swelling with no fracture identified. Electronically signed by: Yakov Merritt M.D. 04/12/2016 7:27 PM Consultations: Infectious Diseases Orthopaedics (Evelyne Zuleta MD) Medication Reconciliation New Medications: Cephalexin Monohydrate (Keflex) 500 Mg Cap 500 MG PO QID for 8 Days, #32 CAP Sulfa/Trimethoprim (Bactrim Ds 800MG/160MG) Tab 1 TAB PO BID for 8 Days, #6 TAB Continued Medications: Ibuprofen (Motrin) 600 Mg Tab 1200 MG PO BID PRN for Pain, TAB Referrals At Discharge Follow up Referrals: Infectious Disease - Please Call For Appointment @ [facility] with Ce Moralez, RAFAL Discharge Exam PHYSICAL EXAM General Appearance: WD/WN, no apparent distress Eyes: normal inspection, PERRL ENT: hearing grossly normal Neck: supple, no JVD Respiratory/Chest: lungs clear, normal breath sounds, no respiratory distress Cardiovascular: regular rate, rhythm, no murmur Abdomen: normal bowel sounds, non tender, soft Extremities: + pertinent finding (persistent erythema, now improved anteriorly to below line drawn, with mild tenderness. Edema improved significantly. R leg without abnormality.) Neurologic/Psychiatric: alert, normal mood/affect, oriented x 3 Review of Systems: Constitutional: No chills, No fatigue, No fever, No sweats, No weakness, No weight loss ENT: No hearing loss Respiratory: No cough, No shortness of breath, No sputum, No wheezing Cardiovascular: No chest pain Abdomen: No constipation, No diarrhea, No nausea, No pain, No vomiting Genitourinary - Male: No dysuria, No hematuria, No urinary frequency, No urinary urgency Neurologic: No memory loss, No paralysis, No weakness Psychiatric: No depression symptoms Endocrine: No fatigue Integumentary: No rash (Evelyne Zuleta MD) Hospital Course HPI: The patient is a 61-year-old male who presents emergency department with complaint of persistent left leg pain that began the previous night around 2200 hrs. He has seen his PCP in the past for red blotchy areas on both anterior tibial areas that been present for years. He does itch these areas due to irritation. He's never had left leg pain as now, and his reports that his leg has developed redness almost up to his knee which is a new finding for him. He has not had any recent trips or any recent trauma. There is no family history of blood clots. He does smoke 1 1/2 packs of cigarettes daily. He did take a total of 1200 mg of ibuprofen earlier in the day today without relief of the pain. HOSPITAL COURSE: 61 yo M with cellulitis, on day 6 on IV antibiotics Plan Severe left leg cellulitis - Has had 5 days of antibiotics so far, initially on Vancomycin and Zosyn, now on Daptomycin 400mg IV daily, Zosyn 3.375 g IV TID, and now added Clindamycin 600mg IV BID. - Will be discharged on PO BACTRIM DS BID and KEFLEX 500mg QID - Blood cultures negative at 5 days - MRI results as above, no drainable abscess or evidence of osteomyelitis. MRI was reviewed with the radiologist in person. - Remains afebrile (Tmax 37.7C) - Appreciate ID and Ortho recommendations Left leg pain - Had severe pain initially, gave Percocet and Morphin IV but then tolerated pain by end of admission. Would continue with Tylenol / ibuprofen as needed - Will add lidocaine patch BID to medial leg due to mild saphenous nerve compression from edema - For severe pain, Morphine 4mg IV q6h - Senna/Miralax for opioid-induced constipation Left ankle edema - Encourage patient to elevate Anxiety - Continue Ambien Dispo: Med Surg CODE STATUS: FULL CODE VTE: Heparin Total Time Spent: Greater than 30 minutes This includes examination of the patient, discharge planning, medication reconciliation, and communication with other providers. (Evelyne Zuleta MD) Resident Physician Supervision Note: I was present with Dr. Zuleta during the history and exam. I discussed the case with the resident and agree with the findings and plan as documented in the note. Any exceptions or clarifications are listed here: Upon examination today, the erythema has further receded from the initial ink marked lines on the skin. Likewise, the patient notes less discomfort both at rest and when walking. Appreciate discussed the case with infectious disease team regarding recommendations for outpatient antibiotics. The patient has appropriate follow- up with his primary care physician on Wednesday of next week. He will also schedule follow-up for later in the week with infectious disease. I reviewed the signs and symptoms of worsening infection including increased pain, expanding areas of erythema, fever, and chills. If these were to present over the weekend, the patient stands knee return to the emergency department for reevaluation. Documented By: Juan Jose Castellanos (Juan Jose Castellanos,D.O.) Discharge Instructions Please refer to the electronic Patient Visit Report (Discharge Instructions) for additional information. (Evelyne Zuleta MD) Follow-Up Follow up with PCP Dr Elizalde on Wednesday at 3:30 pm Arrange appt with Ce from [facility] on Wednesday PATIENT HAD A POSITIVE YARITZA RESULT, though this was reflexed to further analysis. Would recommend checking this at follow up appt as well. (Evelyne Zuleta MD) Additional Copies To [place] Elizalde M.D.; Ce Moralez ., PA-C Resident Tracking Resident Involvement: Resident Care Provided Care Provided: Adult Hospital Medicine (Evelyne Zuleta MD)
== END 2016-04-17 10:30 | disposition home or self-care (01) | DRG 603 ==
LOC: ENRESERVTM → ENRESERVDT → C.EDB 17:37 → C.MSN 21:02
PROVIDERS: ADMIT Hospitalist; ATTEND Family Medicine
DX: L03.116 Cellulitis of left lower limb (principal); F17.210 Nicotine dependence, cigarettes, uncomplicated; L30.1 Dyshidrosis [pompholyx]; R60.0 Localized edema; K59.00 Constipation, unspecified; T40.2X5A Adverse effect of other opioids, initial encounter; Y92.239 Unspecified place in hospital as the place of occurrence of the external cause; B19.20 Unspecified viral hepatitis C without hepatic coma; F41.9 Anxiety disorder, unspecified; Z79.1 Long term (current) use of non-steroidal anti-inflammatories (NSAID)

== ENCOUNTER 2024-06-28 14:12 | Observation (INO) ==
[2024-06-28 15:42] LABS: Basophils # (auto) 0.03 K/uL (0.00-0.20); Basophils % (auto) 0.3 %; Eosinophils # (auto) 0.21 K/uL (0.00-0.50); Eosinophils % (auto) 1.9 %; Hematocrit (blood only) 42.7 % (42.0-52.0); Hemoglobin 14.7 g/dl (14.0-18.0); Immature Granulocytes # (auto) 0.03 K/uL (0.01-0.20); Immature Granulocytes % (auto) 0.3 %; Lymphocytes # (auto) 0.97 K/uL (1.20-3.40); Lymphocytes % (auto) 8.9 %; Mean Corpuscular Hemoglobin 29.5 pg (25.0-34.0); Mean Corpuscular Hgb Conc 34.4 g/dL (32.0-36.0); Mean Corpuscular Volume 85.7 fL (80.0-100.0); Mean Platelet Volume 9.1 fL (9.4-12.4); Monocytes # (auto) 0.68 K/uL (0.11-0.59); Monocytes % (auto) 6.2 %; Neutrophils # (auto) 8.97 K/uL (1.40-6.50); Neutrophils % (auto) 82.4 %; Platelet Count 227 K/uL (130-400); RDW Coefficient of Variation 12.1 % (11.5-14.5); RDW Standard Deviation 37.8 fL (36.4-46.3); Red Blood Count 4.98 M/uL (4.70-6.10); White Blood Count 10.89 K/ul (4.8-10.8)
[2024-06-28] MEDS: SODIUM CHLORIDE 0.9% 1,000 ML IV ONE (16:00)
[2024-06-28 16:01] LABS: Albumin Globulin Ratio 1.3 (0.9-2); Albumin Level 4.5 gm/dl (3.4-5.0); BUN Creatinine Ratio 19.8 (10-20); Bilirubin,Total 0.8 mg/dl (0.2-1.0); Calcium 9.7 mg/dl (8.6-10.3); Creatinine Clr Calc Pharmacy 90.1 ml/min; Globulin 3.6 gm/dl (2.5-4.0); Potassium 4.1 mmol/L (3.5-5.1); Total Protein 8.1 gm/dl (6.0-8.3)
[2024-06-28] MEDS: KETOROLAC TROMETHAMINE 15 MG/ML VIAL IV STA (16:01)
[2024-06-28 16:16] LABS: Appearance Urine Clear (Clear); Bacteria Urine Automated None Seen (None Seen); Bilirubin Urine Negative (Negative); Blood Urine Negative (Negative); Cast Urine Automated 0-2 /lpf (0-2); Color Urine Dark Yellow; Epithelial Cell Urine Auto 0-2 /hpf (0-2); Glucose Urine UA Negative (Negative); Ketones Urine Trace (Negative); Leukocyte Esterase Urine Negative (Negative); Nitrite Urine Negative (Negative); Protein Urine Trace (Negative); RBC Urine Automated 0-2 /hpf (0-2); Specific Gravity Urine 1.031 (1.000-1.030); Urobilinogen Urine Negative (Negative); WBC Urine Automated 0-5 /hpf (0-5); pH Urine 7.5 (4.5-7.5)
[2024-06-28] MEDS: OPTIRAY 320 100ml IV ONE (16:23)
--- NOTE | 2024-06-28 16:30 | XRay Report ---
Chest radiograph, one view History: Chest pain Comparison: None Findings: Single AP view of the chest performed. There are mild to moderate coarse patchy opacities seen in the lungs with a lower lung predominance. No focal consolidation or pleural effusion. No pneumothorax. The cardiomediastinal silhouette is within normal limits. Normal pulmonary vascularity. No evidence for lymphadenopathy. No visualized bony or soft tissue abnormality. Multilevel, chronic appearing posterior right-sided rib fracture deformities. Impression: Course patchy opacities, with a lower lung predominance, would favor a chronic process such as interstitial lung disease, however evaluation is somewhat limited without prior comparisons. Electronically signed by Duarte Triana 06-28-2024 4:29 PM
[2024-06-28 16:34] LABS: Troponin I High Sensitivity 4.6 pg/ml (0-20)
--- NOTE | 2024-06-28 16:48 | CT Scan Report ---
EXAMINATION: Abdomen and pelvis CT with CLINICAL HISTORY: Right lower quadrant pain PRIORS: None TECHNIQUE: Contiguous axial images were obtained through the abdomen and pelvis with the use of intravenous contrast. Sagittal and coronal reformations are supplied. FINDINGS: Appearance of the lung bases suggest pulmonary fibrosis. No pleural effusion. The liver is enlarged measuring 18.5 cm. Homogeneous contrast-enhancement demonstrated. The gallbladder, portal vein, pancreas, spleen, stomach, adrenals, aorta and IVC are morphologically unremarkable. Moderate atherosclerotic disease of the abdominal aorta is noted. The kidneys enhance symmetrically with no hydronephrosis. The appendix is enlarged measuring 15.7 mm, image 61, series 300 with mild to moderate periappendicular inflammatory change and wall thickening. Small appendicolith noted in the appendix lumen. No extraluminal gas to suggest rupture. No drainable fluid collection. The terminal ileum is unremarkable. A moderate amount of formed stool in the colon, particularly the ascending colon. No dilated loops of bowel. No adenopathy or ascites. Urinary bladder under distended and circumferentially thickened. Prostate mildly enlarged not well-visualized. In bone windows, no acute osseous abnormality. Moderate degenerative change at L4-L5 and L5-S1 with vacuum disc phenomena. IMPRESSION: 1. CT features of acute uncomplicated appendicitis. Surgical consultation suggested. 2. Circumferential urinary bladder wall thickening with mildly enlarged prostate may suggest chronic outlet obstruction versus concurrent acute cystitis. 3. Hepatomegaly ACT 112: Positive. There are findings on this examination that require communication between the performing entity and the patient following Patient Test Result Information Act ([place] ACT 112) guidelines. Electronically signed by Haven Kang 06-28-2024 4:45 PM
[2024-06-28] MEDS: cefTRIAXone SODIUM 2,000 MG/50 ML BAG IV STA (17:10)
[2024-06-28] MEDS: metroNIDAZOLE 500 MG/100 ML BAG IV STA (17:44)
[2024-06-28] MEDS ORDERED: ONDANSETRON INJ 2 MG/ML 2 ML VIAL ONE (18:23)
[2024-06-28] MEDS ORDERED: fentaNYL citrate PF 100 MCG/2 ML VIAL ONE (18:23)
[2024-06-28] MEDS ORDERED: MIDAZOLAM HCL 1 MG/ML 2ML VIAL ONE (18:23)
[2024-06-28] MEDS ORDERED: ROCURONIUM BROMIDE 10 MG/ML 5 ML VIAL IV ONE (18:23)
[2024-06-28] MEDS ORDERED: PROPOFOL IV EMULSION 10 MG/ML 20 ML VIAL IV ONE (18:23)
[2024-06-28] MEDS ORDERED: DEXAMETHASONE SOD INJ 4 MG/ML VIAL ONE (18:23)
[2024-06-28] MEDS ORDERED: LIDOCAINE 2% 2 ML VIAL/AMP(20MG/ML) INFIL ONE (18:23)
[2024-06-28] MEDS ORDERED: SUCCINYLCHOLINE CHLORIDE 20 MG/ML 10 ML VIAL IV ONE (18:23)
[2024-06-28] MEDS ORDERED: PROPOFOL IV EMULSION 10 MG/ML 100 ML VIAL IV ONE (18:29)
--- NOTE | 2024-06-28 18:41 | History & Physical Report ---
Date of Service June 28, 2024 Assessment & Plan (1) Appendicitis: Plan: 69-year-old gentleman presents with acute appendicitis. We discussed the risks and benefits of a laparoscopic appendectomy. All his questions were answered he is agreeable to proceed. Will take him to the operating room at the earliest convenience. History of Present Illness Primary Care Provider: NO PCP 69-year-old gentleman presents to the emergency department with a 1 day history of right lower quadrant stabbing abdominal pain. This was accompanied by chills as well as nausea. He last ate yesterday. The pain has worsened over the day. He denies fevers. He denies other complaints. He has not had any abdominal surgeries. CT scan demonstrates acute appendicitis. Allergies Allergy/AdvReac Type Severity Reaction Status Date / Time No Known Allergies Allergy Unverified 04/11/21 00:42 Home Medications Medication Instructions Recorded Confirmed Type atorvastatin 10 mg tablet 10 mg PO QAM 06/28/24 06/28/24 History levalbuterol tartrate 45 2 puff inhalation Q4 PRN WHEEZE 06/28/24 06/28/24 History mcg/actuation aerosol inhaler omeprazole 20 mg capsule,delayed 20 mg PO DAILY 06/28/24 06/28/24 History release ramipril 10 mg capsule 10 mg PO QAM 06/28/24 06/28/24 History Past Med/Surg History Problem List (Updated 06/28/24 @ 18:45 by Eugenio Qiu MD) Appendicitis Left leg pain (Acute) Skin problem (Chronic) Social History Smoking Status: Current every day smoker Tobacco Type: Cigarettes Preferred Language: Hungarian Feels Safe at Home: Yes Review of Systems Review of Systems: All systems reviewed & are unremarkable except as noted in HPI & below Physical Exam Constitutional: WD/WN, vitals as above Eyes: PERRL, conjunctivae normal, anicteric sclerae Neck: trachea midline, no thyromegaly Respiratory: normal respiratory effort; no respiratory distress and no labored breathing Cardiovascular: Rate/Rhythm: regular rate and regular rhythm Gastrointestinal (Abdomen): Inspection/Auscultation: abdomen normal to inspection; abdomen not distended Percussion/Palpation: + abdomen tender ( RLQ) and abdomen soft; no guarding and abdomen not rigid Skin: no rashes, warm and dry Psychiatric: A+Ox3, euthymic affect Results & Data Results & Data Vital Signs (Past 12 Hours) Vital Signs Temp Pulse Pulse Resp BP BP Pulse Ox 06/28/24 17:00 91 H 21 137/85 95 06/28/24 15:47 94 H 06/28/24 15:46 93 H 22 126/79 95 06/28/24 14:36 37.1 C 98 H 18 126/77 96 O2 Del Method 06/28/24 17:00 Room Air 06/28/24 15:47 06/28/24 15:46 Room Air 06/28/24 14:36 Room Air Laboratory Results 06/28/24 06/28/24 Range/Units 16:02 15:20 WBC 10.89 H (4.8-10.8) K/ul RBC 4.98 (4.70-6.10) M/uL Hgb 14.7 (14.0-18.0) g/dl Hct 42.7 (42.0-52.0) % MCV 85.7 (80.0-100.0) fL MCH 29.5 (25.0-34.0) pg MCHC 34.4 (32.0-36.0) g/dL RDW Std Deviation 37.8 (36.4-46.3) fL RDW Coeff of Geraldine 12.1 (11.5-14.5) % Plt Count 227 (130-400) K/uL MPV 9.1 L (9.4-12.4) fL Immature Gran % (Auto) 0.3 % Neut % (Auto) 82.4 % Lymph % (Auto) 8.9 % [place] % (Auto) 6.2 % Eos % (Auto) 1.9 % Baso % (Auto) 0.3 % Neut # (Auto) 8.97 H (1.40-6.50) K/uL Lymph # (Auto) 0.97 L (1.20-3.40) K/uL [place] # (Auto) 0.68 H (0.11-0.59) K/uL Eos # (Auto) 0.21 (0.00-0.50) K/uL Baso # (Auto) 0.03 (0.00-0.20) K/uL Immature Gran # (Auto) 0.03 (0.01-0.20) K/uL Sodium 134 L (136-145) mmol/L Potassium 4.1 (3.5-5.1) mmol/L Chloride 100 (98-107) mmol/L Carbon Dioxide 28 (21-32) mmol/L Anion Gap 6 (3-11) BUN 16 (6-23) mg/dl Creatinine 0.81 (0.6-1.4) mg/dl Est Cr Clr Drug Dosing 90.1 ml/min eGFR 96.04 BUN/Creatinine Ratio 19.8 (10-20) Glucose 99 (70-99(Fasting)) mg/dl Calcium 9.7 (8.6-10.3) mg/dl Total Bilirubin 0.8 (0.2-1.0) mg/dl AST 23 (13-39) U/L ALT 15 (7-52) U/L Alkaline Phosphatase 79 (34-104) U/L Troponin I High Sens 4.6 (0-20) pg/ml Total Protein 8.1 (6.0-8.3) gm/dl Albumin 4.5 (3.4-5.0) gm/dl Globulin 3.6 (2.5-4.0) gm/dl Albumin/Globulin Ratio 1.3 (0.9-2) Lipase 22 (11-82) U/L Urine Color Dark Yellow Urine Appearance Clear (Clear) Urine pH 7.5 (4.5-7.5) Ur Specific [place] 1.031 H (1.000-1.030) Urine Protein Trace H (Negative) Urine Glucose (UA) Negative (Negative) Urine Ketones Trace H (Negative) Urine Blood Negative (Negative) Urine Nitrite Negative (Negative) Urine Bilirubin Negative (Negative) Urine Urobilinogen Negative (Negative) Ur Leukocyte Esterase Negative (Negative) Urine WBC (Auto) 0-5 (0-5) /hpf Urine RBC (Auto) 0-2 (0-2) /hpf U Hyaline Cast (Auto) 0-2 (0-2) /lpf U Epithel Cells (Auto) 0-2 (0-2) /hpf Urine Bacteria (Auto) None Seen (None Seen) Diagnostic Findings EXAMINATION: Abdomen and pelvis CT with CLINICAL HISTORY: Right lower quadrant pain PRIORS: None TECHNIQUE: Contiguous axial images were obtained through the abdomen and pelvis with the use of intravenous contrast. Sagittal and coronal reformations are supplied. FINDINGS: Appearance of the lung bases suggest pulmonary fibrosis. No pleural effusion. The liver is enlarged measuring 18.5 cm. Homogeneous contrast-enhancement demonstrated. The gallbladder, portal vein, pancreas, spleen, stomach, adrenals, aorta and IVC are morphologically unremarkable. Moderate atherosclerotic disease of the abdominal aorta is noted. The kidneys enhance symmetrically with no hydronephrosis. The appendix is enlarged measuring 15.7 mm, image 61, series 300 with mild to moderate periappendicular inflammatory change and wall thickening. Small appendicolith noted in the appendix lumen. No extraluminal gas to suggest rupture. No drainable fluid collection. The terminal ileum is unremarkable. A moderate amount of formed stool in the colon, particularly the ascending colon. No dilated loops of bowel. No adenopathy or ascites. Urinary bladder under distended and circumferentially thickened. Prostate mildly enlarged not well-visualized. In bone windows, no acute osseous abnormality. Moderate degenerative change at L4-L5 and L5-S1 with vacuum disc phenomena. IMPRESSION: 1. CT features of acute uncomplicated appendicitis. Surgical consultation suggested. 2. Circumferential urinary bladder wall thickening with mildly enlarged prostate may suggest chronic outlet obstruction versus concurrent acute cystitis. 3. Hepatomegaly ACT 112: Positive. There are findings on this examination that require communication between the performing entity and the patient following Patient Test Result Information Act ([place] ACT 112) guidelines. Electronically signed by Haven Kang 06-28-2024 4:45 PM Dictated: 06/28/24 [id number] Transcribed: (1) Appendicitis Appendicitis type: acute appendicitis Acute appendicitis type: with localized peritonitis Appendicitis gangrene presence: without gangrene Appendicitis perforation presence: without perforation Appendicitis abscess presence: without abscess Qualified Code(s): K35.30 - Acute appendicitis with localized peritonitis, without perforation or gangrene
[2024-06-28] MEDS ORDERED: ePHEDrine sulfate 50 MG/ML AMP IV PRN (19:08)
[2024-06-28] MEDS ORDERED: fentaNYL citrate PF 100 MCG/2 ML VIAL IV PRN (19:08)
[2024-06-28] MEDS ORDERED: ATROPINE SULFATE 0.1 MG/ML 10ML SYR IV PRN (19:08)
[2024-06-28] MEDS ORDERED: ONDANSETRON INJ 2 MG/ML 2 ML VIAL IV PRN ×2 (19:08→22:06)
--- NOTE | 2024-06-28 19:08 | Anesthesiology Consultation ---
Date of Service June 28, 2024 Assessment & Plan Chart Review Chart Review: Acceptable Risk for Surgery and Patient NOT seen in Pre Admission Testing Consults Requested none History Surgery Operation Date: 06/28/24 20:00 Proposed Procedures p Laparoscopic Appendectomy - Eugenio Qiu MD Height/Weight Height: 5 ft 10 in Weight: 82.4 kg Allergies Allergy/AdvReac Type Severity Reaction Status Date / Time No Known Allergies Allergy Unverified 04/11/21 00:42 Medications Home Medications Medication Instructions Recorded Confirmed Last Taken atorvastatin 10 mg tablet 10 mg PO QAM 06/28/24 06/28/24 Unknown levalbuterol tartrate 45 2 puff inhalation Q4 PRN WHEEZE 06/28/24 06/28/24 Unknown mcg/actuation aerosol inhaler omeprazole 20 mg capsule,delayed 20 mg PO DAILY 06/28/24 06/28/24 Unknown release ramipril 10 mg capsule 10 mg PO QAM 06/28/24 06/28/24 Unknown Social History Smoking Status: Current every day smoker Physical Exam Vital Signs Last Vital Signs Temp 37.1 C 06/28/24 14:36 Pulse 91 H 06/28/24 17:00 Resp 21 06/28/24 17:00 BP 137/85 06/28/24 17:00 Pulse Ox 95 06/28/24 17:00 O2 Del Method Room Air 06/28/24 17:00 Testing Laboratory Results 06/28/24 15:20 06/28/24 15:20 Urine Color Dark Yellow 06/28/24 16:02 Urine Appearance Clear (Clear) 06/28/24 16:02 Urine pH 7.5 (4.5-7.5) 06/28/24 16:02 Ur Specific [place] 1.031 (1.000-1.030) H 06/28/24 16:02 Urine Protein Trace (Negative) H 06/28/24 16:02 Urine Glucose (UA) Negative (Negative) 06/28/24 16:02 Urine Ketones Trace (Negative) H 06/28/24 16:02 Urine Nitrite Negative (Negative) 06/28/24 16:02 Ur Leukocyte Esterase Negative (Negative) 06/28/24 16:02 Urine WBC (Auto) 0-5 /hpf (0-5) 06/28/24 16:02 Urine RBC (Auto) 0-2 /hpf (0-2) 06/28/24 16:02 U Hyaline Cast (Auto) 0-2 /lpf (0-2) 06/28/24 16:02 U Epithel Cells (Auto) 0-2 /hpf (0-2) 06/28/24 16:02 Urine Bacteria (Auto) None Seen (None Seen) 06/28/24 16:02 Electrocardiogram Date: 06/28/24 Findings: + NSR @ LAD
[2024-06-28] MEDS ORDERED: SUGAMMADEX SODIUM 200 MG/2 ML VIAL IV ONE (20:50)
--- NOTE | 2024-06-28 20:50 | Emergency Department Note ---
History of Present Illness General Chief Complaint: Abdominal Pain Stated Complaint: CHEST PAIN Time Seen by Provider: 06/28/24 15:22 History of Present Illness Provider Complaint: abdominal pain Onset (ago): 1 day(s) Pain Consistency: constant Location: periumbilical Radiation: RLQ Severity: moderate Maximum Pain Intensity: 7 Current Pain Intensity: 7 Quality: + stabbing and + sharp Relieved By: + nothing Exacerbated By: + nothing Context: no foreign travel, no possible food poisoning, no sick contacts, no recent antibiotic use, no recent surgery/procedure or no recent injury Associated Symptoms: + nausea; no vomiting, no diarrhea, no fever, no chills, no constipation, no dysuria, no hematemesis, no hematochezia, no melena, no hematuria, no anorexia, no headache, no neck pain, no back pain, no chest pain and no breathing difficulty Home Medications Medication Instructions Recorded Confirmed Type atorvastatin 10 mg tablet 10 mg PO QAM 06/28/24 06/28/24 History levalbuterol tartrate 45 2 puff inhalation Q4 PRN WHEEZE 06/28/24 06/28/24 History mcg/actuation aerosol inhaler omeprazole 20 mg capsule,delayed 20 mg PO DAILY 06/28/24 06/28/24 History release ramipril 10 mg capsule 10 mg PO QAM 06/28/24 06/28/24 History Allergies Allergy/AdvReac Type Severity Reaction Status Date / Time No Known Allergies Allergy Unverified 04/11/21 00:42 Past Med/Surg History Problem List (Updated 06/28/24 @ 20:50 by Juancarlos Vieira MD) Acute appendicitis (Acute) Appendicitis Left leg pain (Acute) Skin problem (Chronic) Medical History No pertinent past medical history No pertinent family history Surgical History No pertinent past surgical history Social History Smoking Status: Current every day smoker Tobacco Type: Cigarettes Preferred Language: Guinean Feels Safe at Home: Yes Physical Exam 2 Vital Signs: Vital Signs - 24 hr 06/28/24 14:36 06/28/24 15:46 06/28/24 15:47 Temperature 37.1 C Temperature Source Temporal Artery Sc an Pulse Rate 98 H 94 H Pulse Rate [Apical ] 93 H Pulse Rhythm [Apic al] Regular Pulse Strength [Ap ical] Normal Respiratory Rate 18 22 Respiratory Effort / Characteristics Non-Labored Sponta neous Non-Labored Respiratory Depth Normal Normal Respiratory Patter n Regular Regular Blood Pressure 126/77 Blood Pressure [Le ft Arm] 126/79 Blood Pressure Meghan n 93 Blood Pressure Meghan n [Left Arm] 94 Blood Pressure Pos ition [Left Arm] Lying Pulse Oximetry 96 95 Oxygen Delivery Me thod Room Air Room Air Sepsis Recent Feve r Within 48 Hours No Sepsis New/Unexpla ined Change in Men dewey Status N/A Sepsis Action Take n by Nursing No Action Required 06/28/24 17:00 06/28/24 19:00 06/28/24 19:28 Temperature 37.5 C Temperature Source Oral Pulse Rate Pulse Rate [Apical ] 91 H 84 94 H Pulse Rhythm [Apic al] Regular Regular Pulse Strength [Ap ical] Normal Normal Respiratory Rate 21 24 24 Respiratory Effort / Characteristics Non-Labored Non-Labored Sponta neous Respiratory Depth Normal Normal Respiratory Patter n Regular Regular Blood Pressure Blood Pressure [Le ft Arm] 137/85 96/56 L 125/80 Blood Pressure Meghan n Blood Pressure Meghan n [Left Arm] 102 69 95 Blood Pressure Pos ition [Left Arm] Lying Pulse Oximetry 95 94 94 Oxygen Delivery Me thod Room Air Room Air Room Air Sepsis Recent Feve r Within 48 Hours Sepsis New/Unexpla ined Change in Men dewey Status Sepsis Action Take n by Nursing Physical Exam: Physical Exam GENERAL: oriented to person, place, and time. appears well-developed and well- nourished. She does not appear distressed. HENT: Exam performed. -Head: Normocephalic and atraumatic. -Right Ear: External ear normal. No mastoid erythema -Left Ear: External ear normal. No mastoid erythema -Mouth/Throat: The oropharynx is clear and moist. No trismus in the jaw. No dental abscesses or uvula swelling. No oropharyngeal exudate or tonsillar abscesses. EYES: Conjunctivae and EOM are normal.Right eye exhibits no discharge. Left eye exhibits no discharge. No scleral icterus. NECK: Normal range of motion. Neck supple. No JVD present. No tracheal deviation and normal range of motion present. CV: Normal rate, regular rhythm, normal heart sounds and intact distal pulses. There is no peripheral edema. Palpable radial pulses bue. PULM/CHEST: Effort normal and breath sounds normal. No respiratory distress. No stridor. no wheezes.no rales. -Chest Wall: no tenderness to palpation ABD: The abdomen is soft. Bowel sounds are normal. no distension. No mass is present. There is tenderness to palpation of the right lower quadrant. There is no rebound, no guarding, no Rogers's sign. Rovsig negative MUSC/SKEL: Normal range of motion. There is no peripheral edema, tenderness or deformity. NEURO: Motor and sensation grossly intact. SKIN: Skin is warm and dry. not diaphoretic. PSYCH: normal mood and affect. Behavior is normal. Judgment and thought content normal. Course Course 1522: The patient was evaluated in room B7. A complete history and physical exam was performed Cardiac monitoring: An order was placed for continuous cardiac monitoring. The monitor shows a rate of 90 with sinus rhythm interpreted by sc 1650: Vital signs stable. Labs unremarkable. Imaging shows appendicitis. Rocephin and Flagyl ordered for the patient. Patient will be admitted to the general surgery team. Administered Medications Discontinued Medications Sodium Chloride (Nss) 1,000 mls @ 999 mls/hr IV .Q1H1M ONE Stop: 06/28/24 16:51 Last Infusion: 06/28/24 18:54 Dose: Infused Documented By: Admin: 06/28/24 16:00 Dose: 999 mls/hr Documented By: ROBERTA Ceftriaxone Sodium (Rocephin) 2,000 mg in 50 mls @ 100 mls/hr IV NOW STA Stop: 06/28/24 17:20 Last Infusion: 06/28/24 17:44 Dose: Infused Documented By: Admin: 06/28/24 17:10 Dose: 100 mls/hr Documented By: ROBERTA Metronidazole (Flagyl) 500 mg in 100 mls @ 100 mls/hr IV NOW STA Stop: 06/28/24 17:50 Last Infusion: 06/28/24 18:54 Dose: Infused Documented By: Admin: 06/28/24 17:44 Dose: 100 mls/hr Documented By: ROBERTA Ioversol (Optiray 320 100ml) 93 ml IV ONCE ONE Stop: 06/28/24 16:24 Last Admin: 06/28/24 16:23 Dose: 93 ml Documented By: HUSSEIN Ketorolac Tromethamine (Ketorolac Tromethamine 15 Mg/Ml Vial) 15 mg IV NOW STA Stop: 06/28/24 15:52 Last Admin: 06/28/24 16:01 Dose: 15 mg Documented By: [facility] Medical Decision Making Laboratory Data Attestation: I reviewed the patient's lab results. 06/28/24 15:20 06/28/24 15:20 Lab Results 06/28/24 06/28/24 Range/Units 15:20 16:02 WBC 10.89 H (4.8-10.8) K/ul RBC 4.98 (4.70-6.10) M/uL Hgb 14.7 (14.0-18.0) g/dl Hct 42.7 (42.0-52.0) % MCV 85.7 (80.0-100.0) fL MCH 29.5 (25.0-34.0) pg MCHC 34.4 (32.0-36.0) g/dL RDW Std Deviation 37.8 (36.4-46.3) fL RDW Coeff of Geraldine 12.1 (11.5-14.5) % Plt Count 227 (130-400) K/uL MPV 9.1 L (9.4-12.4) fL Immature Gran % (Auto) 0.3 % Neut % (Auto) 82.4 % Lymph % (Auto) 8.9 % [place] % (Auto) 6.2 % Eos % (Auto) 1.9 % Baso % (Auto) 0.3 % Neut # (Auto) 8.97 H (1.40-6.50) K/uL Lymph # (Auto) 0.97 L (1.20-3.40) K/uL [place] # (Auto) 0.68 H (0.11-0.59) K/uL Eos # (Auto) 0.21 (0.00-0.50) K/uL Baso # (Auto) 0.03 (0.00-0.20) K/uL Immature Gran # (Auto) 0.03 (0.01-0.20) K/uL Sodium 134 L (136-145) mmol/L Potassium 4.1 (3.5-5.1) mmol/L Chloride 100 (98-107) mmol/L Carbon Dioxide 28 (21-32) mmol/L Anion Gap 6 (3-11) BUN 16 (6-23) mg/dl Creatinine 0.81 (0.6-1.4) mg/dl Est Cr Clr Drug Dosing 90.1 ml/min eGFR 96.04 BUN/Creatinine Ratio 19.8 (10-20) Glucose 99 (70-99(Fasting)) mg/dl Calcium 9.7 (8.6-10.3) mg/dl Total Bilirubin 0.8 (0.2-1.0) mg/dl AST 23 (13-39) U/L ALT 15 (7-52) U/L Alkaline Phosphatase 79 (34-104) U/L Troponin I High Sens 4.6 (0-20) pg/ml Total Protein 8.1 (6.0-8.3) gm/dl Albumin 4.5 (3.4-5.0) gm/dl Globulin 3.6 (2.5-4.0) gm/dl Albumin/Globulin Ratio 1.3 (0.9-2) Lipase 22 (11-82) U/L Urine Color Dark Yellow Urine Appearance Clear (Clear) Urine pH 7.5 (4.5-7.5) Ur Specific [place] 1.031 H (1.000-1.030) Urine Protein Trace H (Negative) Urine Glucose (UA) Negative (Negative) Urine Ketones Trace H (Negative) Urine Blood Negative (Negative) Urine Nitrite Negative (Negative) Urine Bilirubin Negative (Negative) Urine Urobilinogen Negative (Negative) Ur Leukocyte Esterase Negative (Negative) Urine WBC (Auto) 0-5 (0-5) /hpf Urine RBC (Auto) 0-2 (0-2) /hpf U Hyaline Cast (Auto) 0-2 (0-2) /lpf U Epithel Cells (Auto) 0-2 (0-2) /hpf Urine Bacteria (Auto) None Seen (None Seen) Imaging Data Radiologist's Impression: Chest X-Ray 06/28/24 14:41 Chest radiograph, one view History: Chest pain Comparison: None Findings: Single AP view of the chest performed. There are mild to moderate coarse patchy opacities seen in the lungs with a lower lung predominance. No focal consolidation or pleural effusion. No pneumothorax. The cardiomediastinal silhouette is within normal limits. Normal pulmonary vascularity. No evidence for lymphadenopathy. No visualized bony or soft tissue abnormality. Multilevel, chronic appearing posterior right-sided rib fracture deformities. Impression: Course patchy opacities, with a lower lung predominance, would favor a chronic process such as interstitial lung disease, however evaluation is somewhat limited without prior comparisons. Electronically signed by Duarte Triana 06-28-2024 4:29 PM Abdomen/Pelvis CT 06/28/24 15:51 EXAMINATION: Abdomen and pelvis CT with CLINICAL HISTORY: Right lower quadrant pain PRIORS: None TECHNIQUE: Contiguous axial images were obtained through the abdomen and pelvis with the use of intravenous contrast. Sagittal and coronal reformations are supplied. FINDINGS: Appearance of the lung bases suggest pulmonary fibrosis. No pleural effusion. The liver is enlarged measuring 18.5 cm. Homogeneous contrast-enhancement demonstrated. The gallbladder, portal vein, pancreas, spleen, stomach, adrenals, aorta and IVC are morphologically unremarkable. Moderate atherosclerotic disease of the abdominal aorta is noted. The kidneys enhance symmetrically with no hydronephrosis. The appendix is enlarged measuring 15.7 mm, image 61, series 300 with mild to moderate periappendicular inflammatory change and wall thickening. Small appendicolith noted in the appendix lumen. No extraluminal gas to suggest rupture. No drainable fluid collection. The terminal ileum is unremarkable. A moderate amount of formed stool in the colon, particularly the ascending colon. No dilated loops of bowel. No adenopathy or ascites. Urinary bladder under distended and circumferentially thickened. Prostate mildly enlarged not well-visualized. In bone windows, no acute osseous abnormality. Moderate degenerative change at L4-L5 and L5-S1 with vacuum disc phenomena. IMPRESSION: 1. CT features of acute uncomplicated appendicitis. Surgical consultation suggested. 2. Circumferential urinary bladder wall thickening with mildly enlarged prostate may suggest chronic outlet obstruction versus concurrent acute cystitis. 3. Hepatomegaly ACT 112: Positive. There are findings on this examination that require communication between the performing entity and the patient following Patient Test Result Information Act ([place] ACT 112) guidelines. Electronically signed by Haven Kang 06-28-2024 4:45 PM [facility] Narrative 1522: The patient was evaluated in room B7. A complete history and physical exam was performed Cardiac monitoring: An order was placed for continuous cardiac monitoring. The monitor shows a rate of 90 with sinus rhythm interpreted by me 1650: Vital signs stable. Labs unremarkable. Imaging shows appendicitis. Rocephin and Flagyl ordered for the patient. Patient will be admitted to the general surgery team. Impression & Plan Acute appendicitis Discharge Plan Visit Data Chief Complaint: Abdominal Pain Stated Complaint: CHEST PAIN ED Provider: Juancarlos Vieira Discharge Problem: Acute appendicitis Patient Disposition: Admitted As Inpatient Forms Stand Alone Forms: [facility] Prescriptions Prescriptions: No Action atorvastatin 10 mg tablet 10 mg PO QAM omeprazole 20 mg capsule,delayed release(DR/EC) 20 mg PO DAILY ramipril 10 mg capsule 10 mg PO QAM levalbuterol tartrate 45 mcg/actuation HFA aerosol inhaler 2 puff INHALATION Q4 PRN (Reason: WHEEZE) Referrals Referrals: PCP,NO [Primary Care Provider] -
[2024-06-28] MEDS: BUPIVACAINE/EPINEPHRINE 0.5% MPF 1:200,000 30 ML VIAL ONE (20:56)
--- NOTE | 2024-06-28 21:00 | Post Operative Brief Note ---
Immediate Post Op Note Date of Surgery June 28, 2024 Pre & Post Diagnosis Operation Date: 06/28/24 20:00 Pre-Op Diagnosis: Acute appendicitis Post-Op Diagnosis: Acute appendicitis I identified the patient and participated in the time-out.: Yes Procedure Operation Date: 06/28/24 20:00 Actual Procedures p Laparoscopic Appendectomy(Not Applicable) - Eugenio Qiu MD Surgeon Eugenio Qiu MD [employer] none Estimated Blood Loss 5 Findings Consistent with Post-Op Diagnosis
--- NOTE | 2024-06-28 21:01 | Operative Report ---
Post Operative Report Pre & Post Diagnosis Operation Date: 06/28/24 20:00 Pre-Op Diagnosis: Acute appendicitis Post-Op Diagnosis: Acute appendicitis I identified the patient and participated in the time-out.: Yes Procedure Operation Date: 06/28/24 20:00 Actual Procedures p Laparoscopic Appendectomy(Not Applicable) - Eugenio Qiu MD Surgeon Eugenio Qiu MD Technician Automatic none Estimated Blood Loss 5 Findings Consistent with Post-Op Diagnosis acute appendicitis Specimens appendix Drains none Anesthesia Type General Complications none Description of Procedure the patient was taken to the operating room, and placed supine on the operating table. A timeout was performed, perioperative antibiotics were administered, SCD boots were placed. After adequate anesthesia and analgesia was obtained, the abdomen was prepped and draped in the normal sterile fashion. A 1 cm incision was made in the supraumbilical region and carried down to the level of the fascia. A trach hook was used to grasp the fascia and elevated and a varies needle was used to enter the abdominal cavity. The abdomen was insufflated to a pressure of 15 mmHg, and a 5 mm trocar was placed in this location. A 5 mm 30 degree laparoscope was placed into the abdominal cavity, and the abdomen was surveyed. The patient was placed in Trendelenburg and slightly to the left. One 5 mm trocar was placed in the right upper quadrant, and one 12 mm trocar was placed in the left lower quadrant under direct visualization. The right colon was identified and traced down to the cecum. The appendix was identified and elevated anteriorly and medially. A window was created at the base of the appendix with a [place] dissector. The Endo CELESTINE stapler was used to transect the appendix at its base through noninflamed tissue, and subsequently the mesoappendix. The appendix was placed in an Endo Catch bag, and removed via the left lower quadrant port site. Attention was turned to hemostasis, which was excellent. The abdomen was copiously irrigated and suctioned free, and again hemostasis was found to be excellent. All trochars removed under direct visualization. The abdomen was desufflated. The fascia in the 12 mm port site was closed with a 0 Vicryl suture. The skin was closed with a running 4-0 Monocryl subcuticular stitch. Dermabond was applied. The patient tolerated the procedure without complication, and was transferred in stable condition to the PACU. All instrument, needle, and sponge counts were correct at the end of the case. I attest to the content of the Intraoperative Record and any orders documented therein. Any exceptions are noted below.
--- NOTE | 2024-06-28 21:30 | Anesthesiology Progress Note ---
Date of Service June 28, 2024 Anesthesia Post Procedure Vital Signs Vital Signs: Temp Pulse Pulse Resp BP BP BP 06/28/24 21:20 98 H 16 101/58 L 06/28/24 21:11 36.9 C 93 H 14 109/57 L 06/28/24 19:28 37.5 C 94 H 24 125/80 06/28/24 19:00 84 24 96/56 L 06/28/24 17:00 91 H 21 137/85 06/28/24 15:47 94 H 06/28/24 15:46 93 H 22 126/79 06/28/24 14:36 37.1 C 98 H 18 126/77 Pulse Ox O2 Del Method O2 Flow Rate 06/28/24 21:20 93 Room Air 06/28/24 21:11 95 Oxymask 5 06/28/24 19:28 94 Room Air 06/28/24 19:00 94 Room Air 06/28/24 17:00 95 Room Air 06/28/24 15:47 06/28/24 15:46 95 Room Air 06/28/24 14:36 96 Room Air Pain Intensity Right Lower Abdomen: Pain Intensity: 7 Transfer of Care Handoff Completed per policy Notes Mental Status: alert / awake / arousable Patient Amnestic to Procedure: Yes Nausea / Vomiting: adequately controlled Pain: adequately controlled Airway Patency, RR, SpO2: stable & adequate BP & HR: stable & adequate Hydration State: stable & adequate Anesthetic Complications: no major complications apparent and Pt Satisfied with anesthetic care
[2024-06-28] MEDS ORDERED: diphenhydrAMINE Capsule 25 MG CAP PO PRN (22:06)
[2024-06-28] MEDS ORDERED: oxyCODONE/ACETAMINOPHEN 5mg/325mg TAB PO PRN (22:06)
[2024-06-28] MEDS ORDERED: PROMETHAZINE 12.5 MG/50.5 ML BAG IV PRN (22:06)
[2024-06-28] MEDS ORDERED: MoRPHine SULFATE 2 MG/ML CARP IV PRN (22:06)
[2024-06-28] MEDS ORDERED: KETOROLAC TROMETHAMINE 15 MG/ML VIAL IV PRN (22:06)
--- OUTSIDE RECORDS SUMMARY | 2024-06-29 01:04 | External Medical Summary | Summary of Care ---
Author Name Unknown Organization [facility] Address [address] [place] [address] Phone [phone] Care Team Providers Care Telecommunications Line Installer Name Role Phone Breann Chapin MD Primary Care Provider [phone] Reason for Visit * Reason Onset Date Comments Health Maintenance 06/21/2024 Encounter Details Date Type Department Care Team (Late st Contact Info) Description 06/21/2024 Telephone Family Practice [facility] [place] [address] [facility] [place] [address] Breann Chapin MD [address] [place] [address] Health Maintenance Allergies No known active allergiesdocumented as of this encounter (statuses as of 06/21/2024) Medications Melatonin 0.5 MG TABS Take 0.5 Tablets by mouth. Takes 4-5 every day at bedtime. Active omeprazole (PRILOSEC) 20 MG CPDRIndications: Reflux esophagitis take 1 capsule by mouth once daily 90 Cap 3 9 Active Atorvastatin Calcium 10 MG Oral Tablet (Lipitor)Indicat ions:Mixed dyslipidemia Take 1 Tablet by mouth in the morning. 90 Tablet 3 4 Active Multivitamin Gummies Adult Oral Tablet Chewable Take 1 Tablet by mouth in the morning. Active Clobetasol Propionate 0.05 % External Cream (Temovate)Indica tions:Psoriasis vulgaris Apply to psoriasis on hands and legs twice daily as needed for flares 60 g 5 4 Active Ramipril 10 MG Oral Capsule (Altace) TAKE 1 CAPSULE BY MOUTH EVERY DAY IN THE MORNING 90 Capsule 3 5 Active Skyrizi Pen 150 MG/ML Subcutaneous Solution Auto-injector (risankizumab-rz aa)Indications:P soriasis vulgaris Maintenance Dose: Inject 150mg (1 pen) under the skin every 12 weeks 1 mL 1 5 Active documented as of this encounter (statuses as of 06/21/2024) Active Problems Problem Noted Date Diagnosed Date Hiatal hernia 05/06/2024 Atherosclerosis of aorta 05/06/2024 Hepatic steatosis 05/06/2024 Centrilobular emphysema 05/06/2024 Mixed dyslipidemia 08/13/2023 HTN, goal below 130/80 08/13/2023 Psoriasis vulgaris 08/13/2023 Tobacco use 08/13/2023 Gastroesophageal reflux disease 09/23/2022 Prediabetes 04/25/2018 Overview: Per Prediabetes protocol #1 Hepatitis C virus infection cured after antiviral drug therapy 02/11/2018 Overview (02/11/2018): HCV treated; SVR confirmed 02/07/2018 documented as of this encounter (statuses as of 06/21/2024) Resolved Problems Problem Noted Date Diagnosed Date Resolved Date Chronic hepatitis C without hepatic coma 04/30/2016 02/11/2018 Overview (02/11/2018): HCV treated; SVR confirmed 02/07/2018 Open fracture of multiple ribs 01/24/2008 04/01/2023 documented as of this encounter (statuses as of 06/21/2024) Immunizations Name Administration Dates Next Due HepA Inact/HepB Recomb>=18yrs old 07/16/2017 Pneumococcal Conjugate Vacci ne, 20-valent ([id number]) 08/13/2023 RSV Vac., Recomb, Adjuvant, PF,0.5 Ml (Arexvy) 2024 Seasonal Influenza, High Dos e, Trivalent, PF, IM (Fluzone HD) 2024 Seasonal Influenza, PF, 6 M & above, IM , (FluLaval or Fluzone) 02/04/2021,12/28/2019,12/29/2017 Seasonal Influenza, Quadriva lent Hd (Fluzone Hd) 02/02/2022 Seasonal Influenza, Quadriva lent, No Preserve, IM 04/22/2016 TDAP (age 10 and older)(Boostrix) 01/02/2014 Zoster Vaccine Recombinant (Shingrix) 04/16/2022 ,02/19/2022 documented as of this encounter Social History Tobacco Use Types Packs/Day Years Used Date Smoking Tobacco: Every Day Cigarettes 1 35.2 Started: 1989 Smokeless Tobacco: Current Chew Alcohol Use Standard Drinks/Week Comments Yes 0 (1 standard drink = 0.6 oz pur e alcohol) "very little" once a week PHQ-2 Answer Date Recorded PHQ Adult Total Score 0 05/06/2024 Hunger Vital Sign Answer Date Recorded Within the past 12 months, y ou worried that your food would run out before you got the money to buy more. Never true 05/06/19 Within the past 12 months, t he food you bought just didn't last and you didn't have money to get more. Never true 05/06/2024 Childcare Answer Date Recorded Do you feel overwhelmed with taking care of a child, family member or friend? No 05/06/2024 Does your family need help f inding childcare? (Household - for ages 0-17 years) Not on file 05/06/2024 Clothing Answer Date Recorded Have you been unable to get clothing when it was really needed? No 05/06/2024 Is your family able to get c lothes or diapers when needed? (Household - for ages 0-17 years) Not on file 05/06/2024 Personal Safety Answer Date Recorded Do you feel unsafe or have concerns for your saf ety? No 05/06/2024 Do you have concerns for you r family's safety? (Household - for ages 0-17 years) Not on file 05/06/2024 Utilities Answer Date Recorded Do you have trouble paying y our heating, water, or electric bill? No 05/06/2024 Is your family able to pay t he heat, water, or electric bill? (Household - for ages 0-17 years) Not on file 05/06/2024 Does your family have access to good internet? (Household - for ages 0-17 years) Not on file 05/06/2024 Employment Status Answer Date Recorded Are you unemployed or without regular income? No 05/06/2024 Does the household have a re gular source of income? (Household - for ages 0-17 years) Not on file 05/06/2024 Social Connections Answer Date Recorded How often do you feel lonely or isolated from th ose around you? Never 05/06/2024 Financial Resource Strain Answer Date R ecorded Do you have any trouble payi ng for your medications, or do you think you might in the future? No 05/06/2024 Does your family have troubl e paying for medicine? (Household - for ages 0-17 years) Not on file 05/06/2024 Transportation Needs Answer Date Record ed Do you have trouble getting a ride to medical visits or work? (Adult - for ages 18 years and over) Not on file 05/06/2024 Does your family have a hard time getting a ride to doctors visits? (Household - for ages 0-17 years) Not on file 05/06/2024 Has lack of transportation k ept you from medical appointments, meetings, work, or from getting things needed for daily living? Check all that apply. No 05/06/2024 Do you (or your family) have trouble finding or paying for a ride (transportation)? (Household - for ages 0-17 years) Not on file 05/06/2024 Housing Stability Answer Date Recorded Do you currently live in a s helter or have no steady place to sleep at night? No 05/06/2024 Do you think you are at risk of becoming homeless? (Adult - for ages 18 years and over) Not on file 05/06/2024 Does your family worry about paying for your home or becoming homeless? (Household - for ages 0-17 years) Not on file 0 05/06/2024 Are you homeless or worried that you might be in the future? No 05/06/2024 Are you (or your family) pam eless or worried that you might be in the future? (Household - for ages 0-17 years) Not on file Food Insecurity Answer Date Recorded Do you need food for this week? No 05/06/2024 Are you able to get enough f ood for your family? (Household - for ages 0-17 years) Not on file 05/06/2024 Does your family need food t his week? (Household - for ages 0-17 years) Not on file 05/06/2024 Do you always have enough fo od for your family? (Household - for ages 0-17 years) Not on file 05/06/2024 Food Insecurity Answer Date Recorded Within the past 12 months, y ou worried that your food would run out before you got the money to buy more. Never true 05/06/19 25 Within the past 12 months, t he food you bought just didn't last and you didn't have money to get more. Never true 05/06/2024 Do you need food for this week? No 05/06/2024 Sex and Gender Information Value Date Recorded Sex Assigned at Male 01/14/2024 10:19 AM EDT Legal Sex Male 5:25 AM EST Gender Identity Male 01/14/2024 10:19 AM EDT Sexual Orientation Straight 01/14/2024 10 :19 AM EDT documented as of this encounter Miscellaneous Notes * Telephone Encounter - Ida SalmeronEUGENE - 06/21/2024 9:21 AM EDT Care Gaps Comprehensive Care Outreach Last Office/Telemedicine Visit: 2024 (in office), Visit date not found (telemedicine) Next Office Visit: Visit date not found Hemoglobin AIC Results: Lab Results Component Value Date/Time HEMOGLOBIN A1C - [facility] 6.1 (H) 08/13/2023 09:31 AM HEMOGLOBIN A1C - [facility] 5.8 (H) 02/07/2018 10:21 AM BP Readings from Last 1 Encounters: 05/06/24 148/82 Reviewed Health Maintenance below: Health Maintenance Topic Date Due DISCUSS TOBACCO CESSATION (REFER TO SMARTSET #3160) Never done Alpha-1 Antitrypsin Never done Hepatitis B Vaccine (2 of 3 - Hep B Twinrix 3-dose series) 08/13/2017 *BASELINE EKG FOR HTN Never done COVID-19 Vaccine (3 - season) 2023 DTap/Tdap Vaccines (2 - Td or Tdap) 01/03/2024 GFR 05/06/2024 *COPD SEVERITY VERIFIED BY PFT Never done Colorectal Cancer Screening 07/23/2024 HbA1c 08/12/2024 Ov 6 months august labs Colon July colon [facility] last Care Gap Outreach Action Taken: Left message documented in this encounter Plan of Treatment Upcoming Encounters Date Type Department Care Team (Late st Contact Info) Description 08/28/2024 7:00 AM EDT Imaging Radiology [address] [place] [phone] 05/03/2025 9:00 AM EST Home Visit Care at Home [address] [facility] [place] [id number] Madhavi Ocasio PA-Samantha [address] [facility] [place] [id number] Health Maintenance Due Date Last Done Comments DISCUSS TOBACCO CESSATION (REFER TO SMARTSET #3291) 1955 Alpha-1 Antitrypsin 02/16/1974 Cologuard 02/16/2001 Fecal Occult Blood Test 02/16/2001 Sigmoidoscopy 02/16/2001 Hepatitis B Vaccine (2 of 3 - Hep B Twinrix 3-dose series) 08/13/2017 07/16/2017 *BASELINE EKG FOR HTN 08/15/2023 COVID-19 Vaccine (3 - season) 2023 04/07/2021, 07/24/2020 DTap/Tdap Vaccines (2 - Td or Tdap) 01/03/2024 01/02/2014 GFR 05/06/2024 05/06/2023, 04/04/2021, 09/25/2020, Additional history exists *COPD SEVERITY VERIFIED BY PFT 05/09/2024 Colonoscopy 07/23/2024 07/23/2014 Colorectal Cancer Screening 07/23/2024 HbA1c 08/12/2024 08/13/2023, 02/07/2018 Adult Wellness Visit 05/05/2025 05/05/2024 Depression Screening 05/06/2025 05/06/2024 O2 ASSESSMENT COMPLETED IN PAST YEAR FOR COPD 05/06/2025 05/06/2024 Albumin/Creatinine Ratio 08/12/2026 08/13/2023 Zoster Vaccines Completed 04/16/2022, 02/19/2022 Pneumococcal Vaccine: 50+ Years Completed 08/13/2023 AAA Screening Completed 08/19/2023, 08/10/2018 Lung Cancer Screening Completed 08/19/2023 Influenza Vaccine (FLU shot) Completed 10/2023, 02/02/2022, 02/04/2021, Additional history exists HPV (Gardasil) Vaccine Aged Out No lo nger eligible based on patient's age to complete this topic MENINGOCOCCAL (MENACTRA/MENVEO) Aged Out No longer eligible based on patient's age to complete this topic Meningitis B Vaccine (Bexsero/Trumemba) Aged Out No longer eligible based on patient's age to complete this topic documented as of this encounter Medical Devices Not on filedocumented as of this encounter Advance Directives * Full Code (Latest Code Status on File) Date Activated Date Inactivated Comments 01/23/2008 5:25 AM 01/25/2008 5:33 PM Care Teams Telecommunications Line Installer Relationship Specialty Start Date End Date Breann Chapin MD [address] [place] [address] PCP - General Family Medicine 08/13/23 documented as of this encounter
--- OUTSIDE RECORDS SUMMARY | 2024-06-29 01:05 | External Medical Summary | Summary of Care ---
Author Name Unknown Organization [facility] Address [address] [place] [address] Phone [phone] Care Team Providers Care Home Care Attendant Name Role Phone Breann Chapin MD Primary Care Provider [phone] Reason for Referral * Ancillary Services (Within 10 days (routine)) - Authorized Specialty Diagnoses / Procedures Referred By Contac t Referred To Contact Audiology Diagnoses Bilateral hearing loss, unspecified hearing loss type Breann Chapin MD [address] [address] Phone: tel: fax: Referral ID Status Reason Start Date Expiration Date Visits Requested Visits Authorized [id number] Authorized Ancillary Services Required 2024 999 999 Question Answer Referral Priority Within 10 days (routine) Where should this appointment be scheduled? [facility] Reason for Referral: Hearing Loss Is this sudden hearing loss or post chemotherapy hearing loss? No Reason for Visit * Reason Onset Date Comments Re-Check Medication Administration 2024 Flu an d/or Pneumo Inj Encounter Details Date Type Department Care Team (Late st Contact Info) Description 2024 9:20 AM EST Office Visit Family Practice [facility] So[facility] [address] [place] [address] [address] Breann Chapin MD [address] [address] HTN, goal below 130/80*; Prediabetes; Mixed dyslipidemia; Bilateral hearing loss, unspecified hearing loss type; Tinnitus, bilateral; Need for prophylactic vaccination and inoculation against influenza; Need for prophylactic vaccination and inoculation against respiratory syncytial virus (RSV) Allergies No known active allergiesdocumented as of this encounter (statuses as of 03/13/2024) Medications Melatonin 0.5 MG TABS Take 0.5 Tablets by mouth. Takes 4-5 every day at bedtime. Active omeprazole (PRILOSEC) 20 MG CPDRIndications: Reflux esophagitis take 1 capsule by mouth once daily 90 Cap 3 10/19/19 19 Active Skyrizi Pen 150 MG/ML Subcutaneous Solution Auto-injector (risankizumab-rz aa)Indications:P soriasis vulgaris Starter Dose: Inject 150 mg (1 pen) under the skin on week 0 and week 4. 2 mL 08/02/19 24 Active Atorvastatin Calcium 10 MG Oral Tablet (Lipitor)Indicat ions:Mixed dyslipidemia Take 1 Tablet by mouth in the morning. 90 Tablet 3 08/13/19 24 Active Multivitamin Gummies Adult Oral Tablet Chewable Take 1 Tablet by mouth in the morning. Active Clobetasol Propionate 0.05 % External Cream (Temovate)Indica tions:Psoriasis vulgaris Apply to psoriasis on hands and legs twice daily as needed for flares 60 g 5 11/05/19 24 Active Skyrizi Pen 150 MG/ML Subcutaneous Solution Auto-injector (risankizumab-rz aa)Indications:P soriasis vulgaris Maintenance Dose: Inject 150mg (1 pen) under the skin every 12 weeks following the starter dose. 1 mL 1 11/05/19 24 Active Ramipril 10 MG Oral Capsule (Altace) TAKE 1 CAPSULE BY MOUTH EVERY DAY IN THE MORNING 30 Capsule 2 01/12/20 24 Active RSVPreF3 Vac Recomb Adjuvanted 120 MCG/0.5ML Intramuscular Suspension Reconstituted (Arexvy)Indicati ons:Bilateral hearing loss, unspecified hearing loss type Inject 0.5 mL into a large muscle once for 1 dose. 0.5 mL 4 11:13 AM EST 02/17/20 24 2023 Discontinued documented as of this encounter (statuses as of 03/13/2024) Active Problems Problem Noted Date Diagnosed Date Mixed dyslipidemia 08/13/2023 HTN, goal below 130/80 08/13/2023 Psoriasis vulgaris 08/13/2023 Tobacco use 08/13/2023 Gastroesophageal reflux disease 09/23/2022 Prediabetes 04/25/2018 Overview: Per Prediabetes protocol #1 Hepatitis C virus infection cured after antiviral drug therapy 02/11/2018 Overview (02/11/2018): HCV treated; SVR confirmed 02/07/2018 documented as of this encounter (statuses as of 03/13/2024) Resolved Problems Problem Noted Date Diagnosed Date Resolved Date Chronic hepatitis C without hepatic coma 04/30/2016 02/11/2018 Overview (02/11/2018): HCV treated; SVR confirmed 02/07/2018 Open fracture of multiple ribs 01/24/2008 04/01/2023 documented as of this encounter (statuses as of 03/13/2024) Immunizations Name Administration Dates Next Due HepA Inact/HepB Recomb>=18yrs old 07/16/2017 Pneumococcal Conjugate Vacci ne, 20-valent ([id number]) 08/13/2023 RSV Vac., Recomb, Adjuvant, PF,0.5 Ml [...] Date Smoking Tobacco: Every Day Cigarettes 1 34.9 Started: 1988 Smokeless Tobacco: Current Chew Alcohol Use Standard Drinks/Week Comments Yes 0 (1 standard drink = 0.6 oz pur e alcohol) "very little" once a week PHQ-2 Answer Date Recorded PHQ-2 Score 0 02/13/2018 Sex and Gender Information Value Date Recorded Sex Assigned at Male 01/14/2024 10:19 AM EDT Legal Sex Male 5:25 AM EST Gender Identity Male 01/14/2024 10:19 AM EDT Sexual Orientation Straight 01/14/2024 10 :19 AM EDT documented as of this encounter Last Filed Vital Signs Vital Sign Reading Time Taken Comments Blood Pressure 100/68 2024 9:29 AM EST Pulse 69 2024 9:29 AM EST Temperature 35.9 C (96.7 F) 2024 9:29 AM ES T Respiratory Rate - - Oxygen Saturation 98% 2024 9:29 AM EST Inhaled Oxygen Concentration - - Weight 82.6 kg (182 lb) 2024 9:29 AM EST Height - - Body Mass Index 26.11 08/13/2023 8:53 AM EDT documented in this encounter Progress Notes * Breann Chapin MD - 2024 9:36 AM EST Subjective Chief Complaint Patient presents with Re-Check Medication Administration Flu and/or Pneumo Inj Kevin Lee is a 69 year old male. Patient is unaccompanied. The following issues were addressed today: Patient presents for follow-up. He is prescribed ramipril 10mg for hypertension and atorvastatin 10mg for hyperlipidemia. Has been off atorvastatin for several months because he ran out. Reviewed most recent labs and lipid panel from August 2023. Has noticed increased difficulty hearing. Has been going on for a while. Also having bilateral ringing in his ears. Has not had a hearing test. Sees dermatology for psoriasis. Currently taking Skyrizi which is working well for him. Would like RSV vaccination and flu vaccination today. Review of Systems: See HPI Objective BP 100/68 | Pulse 69 | Temp 35.9 C (96.7 F) (Tympanic) | Wt 82.6 kg (182 lb) | SpO2 98% | BMI 26.11 kg/m | BSA 2.02 m Wt Readings from Last 3 Encounters: 02/17/24 82.6 kg (182 lb) 08/13/23 80.8 kg (178 lb 1.9 oz) 01/26/22 83.5 kg (184 lb) BP Readings from Last 3 Encounters: 02/17/24 100/68 08/13/23 118/70 02/02/22 116/79 General: Well-appearing, no acute distress Ears: External ear unremarkable, canals normal and tympanic membranes clear bilaterally Cardiovascular: Regular rate and rhythm, no murmur Respiratory: Good respiratory effort, breath sounds equal and clear to auscultation bilaterally Neurological: Alert and oriented, no focal deficits noted Psychiatric: Appropriate mood and affect Hemoglobin AIC Results: Lab Results Component Value Date/Time HEMOGLOBIN A1C - [facility] 6.1 (H) 08/13/2023 09:31 AM HEMOGLOBIN A1C - [facility] 5.8 (H) 02/07/2018 10:21 AM Lipid Panel Results: Results for orders placed or performed in visit on 08/13/23 LIPID PANEL WITH DIRECT LDL IF TG IS HIGH Result Value Ref Range Triglycerides 84 <=174 mg/dL Cholesterol 152 <200 mg/dL HDL Cholesterol 29 (L) >39 mg/dL Non-HDL Cholesterol 123 <=159 mg/dL LDL Cholesterol 106 <=129 mg/dL Assessment and Plan 1. HTN, goal below 130/80 Well-controlled. Continue current medication. Recheck labs in 6 months. - COMPREHENSIVE METABOLIC PANEL; Future - ALBUMIN / CREATININE RATIO, URINE; Future 2. Prediabetes Stable. Recheck labs in 6 months. - HEMOGLOBIN A1C; Future 3. Mixed dyslipidemia Stable. Restart statin. Recheck labs in 6 months. - LIPID PANEL WITH DIRECT LDL IF TG IS HIGH; Future 4. Bilateral hearing loss, unspecified hearing loss type 5. Tinnitus, bilateral - AUDIOLOGY REFERRAL OP 6. Tobacco use We discussed the importance of smoking cessation today. 7. Need for prophylactic vaccination and inoculation against influenza - INFLUENZA VAC., TRIVALENT, HD, PF, 65 AND ABOVE, 0.5 ML IM (FLUZONE HD) 8. Need for prophylactic vaccination and inoculation against respiratory syncytial virus (RSV) - RSVPreF3 Vac Recomb Adjuvanted 120 MCG/0.5ML Intramuscular Suspension Reconstituted (Arexvy); Inject 0.5 mL into a large muscle once for 1 dose. Dispense: 0.5 mL; Refill: 0 - RSV VAC., RECOMB, ADJUVANT, PF,0.5 ML (AREXVY) Return in about 6 months (around 08/16/2024) for routine follow-up with labs before. This note was electronically signed by Breann Chapin MD Text in this note was generated using an [employer] documentation service. I discussed the use of a device to record and summarize our discussion today. All persons present during the encounter consented to its use. * Court Power CMA - 2024 9:33 AM EST Inquiring about the RSV vaccine * Court Power CMA - 2024 9:27 AM EST Patient is here for 6 month recheck visit. PRE - ADMINISTRATION DOCUMENTATION Are you experiencing any cold symptoms or fever? No Have you had Guillain-Coxsackie Syndrome (an illness that causes paralysis) within the last 6 weeks? No Have you had the flu shot in the past? YES Have you ever had a reaction to the flu shot? No Tonny Interiano, 2024 9:32 AM Immunization Administration Documentation Time Out Procedure Performed: Yes Patient Identified (Ask Name/Date of ): Yes Does the patient have a fever greater than 101 degrees today? No Patient allergic to latex? No VFC Stock: No Immunization(s) verified: Yes, Immunization Name: Flu, VIS Sheet(s) given: Yes Verified Side and Site: Yes Verified Shot(s) with Parent(s)/Patient: Yes documented in this encounter Plan of Treatment Upcoming Encounters Date Type Department Care Team (Late st Contact Info) Description 05/01/2024 12:30 PM EST Home Visit Care at Home [address] [place] [address] Madhavi Ocasio PA-C [address] [place], [place] [id number] Scheduled Orders Name Type Priority Associated Diagnoses Orde r Schedule COMPREHENSIVE METABOLIC PANEL Lab Routine HTN, goal below 130/80 Expected: 08/16/2024 (Approximate), Expires: 02/16/2025 HEMOGLOBIN A1C Lab Routine Prediabetes Expected: 08/16/2024 (Approximate), Expires: 02/16/2025 LIPID PANEL WITH DIRECT LDL IF TG IS HIGH Lab Routine Mixed dyslipidemia Expected: 08/16/2024 (Approximate), Expires: 02/16/2025 ALBUMIN / CREATININE RATIO, URINE Lab Routine HTN, goal below 130/80 Expected: 08/16/2024 (Approximate), Expires: 02/16/2025 Scheduled Referrals Name Type Priority Associated Diagnoses Orde r Schedule AUDIOLOGY REFERRAL OP Referral Within 10 days (routine) Bilateral hearing loss, unspecified hearing loss type Ordered: 2024 Health Maintenance Due Date Last Done Comments Cologuard 02/16/2001 Fecal Occult Blood Test 02/16/2001 Sigmoidoscopy 02/16/2001 Hepatitis B Vaccine (2 of 3 - Hep B Twinrix 3-dose series) 08/13/2017 07/16/2017 Depression Screening 01/12/2019 01/12/2018 Adult Wellness Visit 02/16/2022 *BASELINE EKG FOR HTN 08/15/2023 COVID-19 Vaccine ( season) 2023 04/07/2021, 07/24/2020 DTap/Tdap Vaccines (2 - Td or Tdap) 01/03/2024 01/02/2014 GFR 05/06/2024 05/06/2023, 04/04/2021, 09/25/2020, Additional history exists Colonoscopy 07/23/2024 07/23/2014 Colorectal Cancer Screening 07/23/2024 HbA1c 08/12/2024 08/13/2023, 02/07/2018 Albumin/Creatinine Ratio 08/12/2026 08/13/2023 Lipid Panel 08/12/2028 08/13/2023, 04/22/2016 Zoster Vaccines Completed 04/16/2022, 02/19/2022 Pneumococcal Vaccine: 65+ Years Completed 08/13/2023 AAA Screening Completed 08/19/2023, [...] Not on filedocumented as of this encounter Visit Diagnoses Diagnosis HTN, goal below 130/80- Primary Unspecified essential hypertension Prediabetes Other abnormal glucose Mixed dyslipidemia Mixed hyperlipidemia Bilateral hearing loss, unspecified hearing loss type Tinnitus, bilateral Unspecified tinnitus Need for prophylactic vaccination and inoculation against influenza Need for prophylactic vaccination and inoculation against respiratory syncytial virus (RSV) documented in this encounter Advance Directives * Full Code (Latest Code Status on File) Date Activated Date Inactivated Comments 01/23/2008 5:25 AM 01/25/2008 5:33 PM Care Teams Home Care Attendant Relationship Specialty Start Date End Date Breann Chapin MD [address] [place] [address] PCP - General Family Medicine 08/13/23 documented as of this encounter
--- OUTSIDE RECORDS SUMMARY | 2024-06-29 01:05 | External Medical Summary | Summary of Care ---
Author Name Unknown Organization [facility] Address [address] [place] [address] Phone [phone] Care Team Providers Care Account Executive Software Sales Name Role Phone Breann Chapin MD Primary Care Provider [phone] Reason for Visit * Reason Comments eRx-Medication Refill Encounter Details Date Type Department Care Team (Late st Contact Info) Description 04/16/2024 Refill Family Practice [facility] [place] [address] [facility] [place] [address] Breann Chapin MD [address] [facility] [place] [address] Allergies No known active allergiesdocumented as of this encounter (statuses as of 04/18/2024) Medications Melatonin 0.5 MG TABS Take 0.5 Tablets by mouth. Takes 4-5 every day at bedtime. Active omeprazole (PRILOSEC) 20 MG CPDRIndications :Reflux esophagitis take 1 capsule by mouth once daily 90 Cap 3 10/19/19 19 Active Skyrizi Pen 150 MG/ML Subcutaneous Solution Auto-injector (risankizumab-r zaa)Indications :Psoriasis vulgaris Starter Dose: Inject 150 mg (1 pen) under the skin on week 0 and week 4. 2 mL 08/02/19 24 Active Atorvastatin Calcium 10 MG Oral Tablet (Lipitor)Indica tions:Mixed dyslipidemia Take 1 Tablet by mouth in the morning. 90 Tablet 3 08/13/19 24 Active Multivitamin Gummies Adult Oral Tablet Chewable Take 1 Tablet by mouth in the morning. Active Clobetasol Propionate 0.05 % External Cream (Temovate)Indic ations:Psoriasi s vulgaris Apply to psoriasis on hands and legs twice daily as needed for flares 60 g 5 11/05/19 24 Active Skyrizi Pen 150 MG/ML Subcutaneous Solution Auto-injector (risankizumab-r zaa)Indications :Psoriasis vulgaris Maintenance Dose: Inject 150mg (1 pen) under the skin every 12 weeks following the starter dose. 1 mL 1 11/05/19 24 Active Ramipril 10 MG Oral Capsule (Altace) TAKE 1 CAPSULE BY MOUTH EVERY DAY IN THE MORNING 90 Capsule 3 04/18/19 25 Active Ramipril 10 MG Oral Capsule (Altace) TAKE 1 CAPSULE BY MOUTH EVERY DAY IN THE MORNING 30 Capsule 2 01/12/20 24 025 Discontinued documented as of this encounter (statuses as of 04/18/2024) Active Problems Problem Noted Date Diagnosed Date Mixed dyslipidemia 08/13/2023 HTN, goal below 130/80 08/13/2023 Psoriasis vulgaris 08/13/2023 Tobacco use 08/13/2023 Gastroesophageal reflux disease 09/23/2022 Prediabetes 04/25/2018 Overview: Per Prediabetes protocol #1 Hepatitis C virus infection cured after antiviral drug therapy 02/11/2018 Overview (02/11/2018): HCV treated; SVR confirmed 02/07/2018 documented as of this encounter (statuses as of 04/18/2024) Resolved Problems Problem Noted Date Diagnosed Date Resolved Date Chronic hepatitis C without hepatic coma 04/30/2016 02/11/2018 Overview (02/11/2018): HCV treated; SVR confirmed 02/07/2018 Open fracture of multiple ribs 01/24/2008 04/01/2023 documented as of this encounter (statuses as of 04/18/2024) Immunizations Name Administration Dates Next Due HepA Inact/HepB Recomb>=18yrs old 07/16/2017 Pneumococcal Conjugate Vacci ne, 20-valent ([id number]) 08/13/2023 RSV Vac., Recomb, Adjuvant, PF,0.5 Ml [...] Date Smoking Tobacco: Every Day Cigarettes 1 35 Started: 1988 Smokeless Tobacco: Current Chew Alcohol [...] encounter Miscellaneous Notes * Telephone Encounter - Klaus Hussein RPh - 04/18/2024 9:31 AM ESTSigned Prescriptions: Disp Refills Ramipril 10 MG Oral Capsule (Altace) 90 Cap*3 Sig: TAKE 1 CAPSULE BY MOUTH EVERY DAY IN THE MORNINGAuthorizing Provider: Martha CHAPIN User: KLAUS HUSSEIN documented in this encounter Plan of Treatment Upcoming Encounters Date Type Department Care Team (Late st Contact Info) Description 05/01/2024 12:30 PM EST Home Visit Care at Home [address] [facility] [place], [place] [phone] Madhavi Ocasio PA-C [address] [facility] [place] [address] Health Maintenance Due Date Last Done Comments Cologuard 02/16/2001 Fecal Occult Blood Test 02/16/2001 Sigmoidoscopy 02/16/2001 Hepatitis B Vaccine (2 of 3 - Hep B Twinrix 3-dose series) 08/13/2017 07/16/2017 Depression Screening 01/12/2019 01/12/2018 Adult Wellness Visit 02/16/2022 *BASELINE EKG FOR HTN 08/15/2023 COVID-19 Vaccine ( - season) 2023 04/07/2021, 07/24/2020 DTap/Tdap Vaccines (2 - Td or Tdap) 01/03/2024 01/02/2014 GFR 05/06/2024 05/06/2023, 07/12, 09/25/2020, Additional history exists Colonoscopy 07/23/2024 07/23/2014 [...] 5:25 AM 01/25/2008 5:33 PM Care Teams Account Executive Software Sales Relationship Specialty Start Date End Date Breann Chapin MD [address] [facility] [place] [address] PCP - General Family Medicine 08/13/23 documented as of this encounter
--- OUTSIDE RECORDS SUMMARY | 2024-06-29 01:05 | External Medical Summary | Summary of Care ---
Author Name Unknown Organization [facility] Address [address] [place] [address] Phone [phone] Care Team Providers Care Generating Plant Superintendent Name Role Phone Breann Chapin MD Primary Care Provider [phone] Encounter Details Date Type Department Care Team (Late st Contact Info) Description 04/28/2024 Telephone Dermatology [facility] [place] [address] [place], [place] [phone] Lizanrdo Nielsen MD [address] [place] [address] Allergies No known active allergiesdocumented as of this encounter (statuses as of 04/28/2024) Medications Melatonin 0.5 MG TABS Take 0.5 Tablets by mouth. Takes 4-5 every day at bedtime. Active omeprazole (PRILOSEC) 20 MG CPDRIndications: Reflux esophagitis take 1 capsule by mouth once daily 90 Cap 3 9 Active Skyrizi Pen 150 MG/ML Subcutaneous Solution Auto-injector (risankizumab-rz aa)Indications:P soriasis vulgaris Starter Dose: Inject 150 mg (1 pen) under the skin on week 0 and week 4. 2 mL 4 Active Atorvastatin Calcium 10 MG Oral Tablet [...] for flares 60 g 5 4 Active Skyrizi Pen 150 MG/ML Subcutaneous Solution Auto-injector (risankizumab-rz aa)Indications:P soriasis vulgaris Maintenance Dose: Inject 150mg (1 pen) under the skin every 12 weeks following the starter dose. 1 mL 1 4 Active Ramipril 10 MG Oral Capsule (Altace) TAKE 1 CAPSULE BY MOUTH EVERY DAY IN THE MORNING 90 Capsule 3 5 Active documented as of this encounter (statuses as of 04/28/2024) Active Problems Problem Noted Date Diagnosed Date Mixed dyslipidemia 08/13/2023 HTN, goal below 130/80 08/13/2023 Psoriasis vulgaris 08/13/2023 Tobacco use 08/13/2023 Gastroesophageal reflux disease 09/23/2022 Prediabetes 04/25/2018 Overview: Per Prediabetes protocol #1 Hepatitis C virus infection cured after antiviral drug therapy 02/11/2018 Overview (02/11/2018): HCV treated; SVR confirmed 02/07/2018 documented as of this encounter (statuses as of 04/28/2024) Resolved Problems Problem Noted Date Diagnosed Date Resolved Date Chronic hepatitis C without hepatic coma 04/30/2016 02/11/2018 Overview (02/11/2018): HCV treated; SVR confirmed 02/07/2018 Open fracture of multiple ribs 01/24/2008 04/01/2023 documented as of this encounter (statuses as of 04/28/2024) Immunizations Name Administration Dates Next Due HepA Inact/HepB Recomb>=18yrs old 07/16/2017 Pneumococcal Conjugate Vacci ne, 20-valent ([id number]) 08/13/2023 RSV Vac., Recomb, Adjuvant, PF,0.5 Ml [...] encounter Miscellaneous Notes * Telephone Encounter - Javi Lawrence RPh - 04/28/2024 12:17 PM EST PAP form received from patient assistance team - emailed to provider for signature. Javi Lawrence, PharmD Medication Therapy Disease Management Dermatology/Rheumatology Clinical Pharmacist 04/28/2024, 12:18 PM documented in this encounter Plan of Treatment Upcoming Encounters Date Type Department Care Team (Late st Contact Info) Description 05/01/2024 12:30 PM EST Home Visit Care at Home [address] [place], [place] [phone] Madhavi Ocasio PA-C [address] [place] [address] 05/02/2024 9:30 AM EST Telemedicine Dermatology [facility] [address] [place], [place] [address] [place] [address] Maria Del Rosario, Pharmacist Dermatology [address] [place] [id number] Health Maintenance Due Date Last Done Comments [...] 5:25 AM 01/25/2008 5:33 PM Care Teams Generating Plant Superintendent Relationship Specialty Start Date End Date Breann Chapin MD [address] [facility] [place] [address] PCP - General Family Medicine 08/13/23 documented as of this encounter
--- OUTSIDE RECORDS SUMMARY | 2024-06-29 01:05 | External Medical Summary | Summary of Care ---
Author Name Unknown Organization [facility] Address [address] [place] [address] Phone [phone] Care Team Providers Care Holistic Specialist Name Role Phone Breann Chapin MD Primary Care Provider [phone] Reason for Visit * Reason Comments Adult Annual Wellness Visit, Initial Vis it Encounter Details Date Type Department Care Team (Latest Contact Info) Description 05/05/2024 9:00 AM EST Home Visit Care at Home [address] [place] [address] Madhavi Ocasio PA-C [address] [place] [address] Gastroesophageal reflux disease without esophagitis*; Centrilobular emphysema (HCC); Psoriasis vulgaris; Atherosclerosis of aorta (HCC); HTN, goal below 130/80; Mixed dyslipidemia; Hepatitis C virus infection cured after antiviral drug therapy; Prediabetes; Tobacco use; Hiatal hernia; Hepatic steatosis; Screening for depression Allergies No known active allergiesdocumented as of this encounter (statuses as of 05/06/2024) Medications Melatonin 0.5 MG TABS Take 0.5 [...] THE MORNING 90 Capsule 3 5 Active Levalbuterol Tartrate 45 MCG/ACT Inhalation Aerosol (Xopenex HFA) Inhale 2 Puffs by mouth every 4 hours as needed for Wheezing. 18 g 5 06/05/19 25 Active documented as of this encounter (statuses as of 05/06/2024) Active Problems Problem Noted Date Diagnosed Date [...] as of this encounter (statuses as of 05/06/2024) Resolved Problems Problem Noted Date Diagnosed Date Resolved Date Chronic hepatitis C without hepatic coma 04/30/2016 02/11/2018 Overview (02/11/2018): HCV treated; SVR confirmed 02/07/2018 Open fracture of multiple ribs 01/24/2008 04/01/2023 documented as of this encounter (statuses as of 05/06/2024) Immunizations Name Administration Dates Next Due HepA Inact/HepB Recomb>=18yrs old 07/16/2017 Pneumococcal Conjugate Vacci ne, 20-valent ([id number]) 08/13/2023 RSV Vac., Recomb, Adjuvant, PF,0.5 Ml [...] Date Smoking Tobacco: Every Day Cigarettes 1 35.1 Started: 1989 Smokeless Tobacco: Current Chew Alcohol [...] No 05/06/2024 Does the household have a [facility] source of income? (Household - for ages [...] ages 0-17 years) Not on file 05/06/2024 Sex and Gender Information Value Date Recorded Sex Assigned at Male 01/14/2024 10:19 AM EDT Legal Sex Male 5:25 AM EST Gender Identity Male 01/14/2024 10:19 AM EDT Sexual Orientation Straight 01/14/2024 10 :19 AM EDT documented as of this encounter Last Filed Vital Signs Vital Sign Reading Time Taken Comments Blood Pressure 148/82 05/06/2024 5:02 PM EST Pulse 82 05/06/2024 5:02 PM EST Temperature - - Respiratory Rate 18 05/06/2024 5:02 PM EST Oxygen Saturation 92% 05/06/2024 5:02 PM EST Inhaled Oxygen Concentration - - Weight - - Height - - Body Mass Index - - documented in this encounter Progress Notes * Madhavi Ocasio PA-C - 05/05/2024 9:29 AM EST Images from the original note were not included. ANNUAL HEALTH RISK ASSESSMENT Care [facility] [address] [facility] [place] [address] Patient Name: Kevin Verde : 1955 Date of Assessment: 05/05/2024 Gender: Male PCP: BREANN [address] [place], [place] [address] [phone] Extended Emergency Contact Information Primary Emergency Contact: DICK VERDE Mobile Relation: Spouse HRA Intake Documentation: Advance Care Planning: Advance Directive Type: Living Will Advance Directive Date: unsure Medical Adherence: Patient is able to obtain all medications? Yes Patient takes medications as prescribed? Yes Patient uses a pill box? No Medication Reconciliation Medications Medication reconciliation/review completed:: Yes (05/06/241704) Medication adherence problem:: Yes (needs refill on BP med) (05/06/241704) Experiencing side effects from current medications:: No (05/06/241704) Medication support:: None (05/06/241704) Admissions (within the last year): Not Applicable Hospital ER within 30 days: No Health Maintenance Last physical exam: 02/17/24 Does patient see provider regularly? Yes, Primary Care Provider and cardiology Spirometry: No Dental Exam: Yes: When: every 3 months and Where: [place] Other Test(s) - No time frame specified Exam End Date Exam End Time 08/10/2018 7:[address] ABDOMEN W IV AND W ORAL CONTRAST Order: [id number] Status: Final result Visible to patient: Yes (seen) Next appt: None Dx: Abnormal finding on imaging 0 Result Notes 1 Topic Details Reading Physician Reading Date Result Priority Yehuda Lott MD [phone] 08/11/2018 Narrative & Impression EXAM: CT ABDOMEN WITH CONTRAST HISTORY: Enlarged lymph node near the head of the pancreas, follow-up evaluation. COMPARISON: Abdominal sonogram dated July 07, 2018. TECHNIQUE: CT abdomen with intravenous contrast was performed. CONTRAST: 100 mL of Optiray 320 intravenously. FINDINGS: LOWER CHEST: Mild bibasilar atelectasis/scarring. Small hiatal hernia. LIVER: Unremarkable. GALLBLADDER/BILE DUCTS: Unremarkable. PANCREAS: Unremarkable. GI TRACT: No bowel wall thickening or perienteric fat stranding is identified. Visualized bowel is nonobstructed. SPLEEN: Unremarkable. LYMPH NODES: Approximately 1.7 x 0.8 cm peripancreatic lymph node is noted just superior to the pancreatic head (series 4, image 25) with a 1.4 x 0.7 cm portal caval lymph node (series 4, image 26), likely top normal in size versus within normal limits for this patient. No lymphadenopathy is identified. ADRENAL GLANDS: Unremarkable. KIDNEYS/URETERS: Nonobstructing 2 mm calculus in right kidney mid pole region. No hydronephrosis oneither side. VASCULATURE: Scattered atherosclerotic calcifications without aortic aneurysm. MISCELLANEOUS: No free fluid or free air. Tiny fat containing umbilical hernia. MUSCULOSKELETAL: Degenerative changes throughout the visualized spine without focal osseous lesionsidentified. IMPRESSION: 1. No significant lymphadenopathy. Mildly prominent peripancreatic and portacaval lymph nodes, potentially reactive. 2. Nonobstructing right renal calculus. 3. Small hiatal hernia. Exam Ended: 08/10/18 07:57 Last Resulted: 08/11/18 21:59 Exam End Date Exam End Time 01/19/2022 7:34 AM US ABDOMEN LIMITED Order: [id number] Status: Final result Visible to patient: Yes (not seen) Next appt: None Dx: Cirrhosis of liver without ascites, u... 0 Result Notes Details Reading Physician Reading Date Result Priority Eugenio Sapp MD [phone] 01/19/2022 Narrative & Impression EXAM: US ABDOMEN LIMITED HISTORY: History of cirrhosis and hepatitis C TECHNIQUE: Real-time scanning performed right upper quadrant COMPARISON: Ultrasound abdomen dated 07/31/2021; ultrasound abdomen dated 09/25/2020; ultrasound abdomen dated 02/19/2020 and prior FINDINGS: Gallbladder: Not abnormally distended. There is no cholelithiasis or significant intraluminal sludge allowing for presumed technical artifact. Minimal partial fold or septation incidentally noted. There is no current ultrasound evidence acute cholecystitis. There is no intrahepatic biliary dilatation. There is no extrahepatic biliary dilatation with the common duct measuring approximately 4 mm. There is no gross choledocholithiasis. Liver: Size length: Right lobe approximate 14.1 cm. The visualized parenchyma appears somewhat diffusely heterogeneous and increased in echotexture this is a nonspecific finding and can reflect fattyinfiltration but also can reflect patient's reported clinical history of hepatitis C and cirrhosis.There is no discrete focal lesion. Visualized surface contour currently appears smooth without definite nodularity. Ascites: None demonstrated in the right upper quadrant Pancreas: Pancreatic bed somewhat obscured by overlying bowel gas. Visualized limited portions of pancreatic parenchyma demonstrate no discrete focal lesion or pancreatic ductal dilatation. Adjacent to the pancreatic head is an elliptical well-defined wider than tall structure with hypoechoic cortex and more hyperechoic hilar or medullary portion. This can be ultrasonographically compatible with lymph node. This measures approximately 0.9 cm x 0.6 cm x 1.6 cm. Cortex is non thickened m easuring approximately 3 mm. Right Kidney: Size length: 12.9 cm. There is no hydronephrosis or focal lesion. Cortex maintained in regard to its thickness and echotexture. There is no demonstrable intrarenal calculus or perinephric abnormality. Right pleural effusion: None demonstrated. IMPRESSION IMPRESSION: Hepatic findings as discussed which are nonspecific and could reflect fatty infiltration but also are compatible with patient's reported clinical history of hepatitis C and cirrhosis. Possible lymph node adjacent to pancreatic head. Exam Ended: 01/19/22 07:34 Last Resulted: 01/19/22 08:57 Order Details View Encounter Lab and Collection Details Routing Result History View All Conversations on this Encounter Narrative & Impression EXAM: US AORTA HISTORY: AAA screening TECHNIQUE: Real-time scanning performed abdominal aorta in sagittal and transverse planes. Trout Farmer images presented. COMPARISON: Prior studies including CT abdomen pelvis dated 08/10/2018 FINDINGS: There is no focal abdominal aorta aneurysm. AP measurements: Proximal-2.2 cm, mid-2.0 cm and distal-1.9 cm. Transverse measurements: Proximal-2.3 cm, mid-2.1 cm and distal-2.0 cm. There is atherosclerotic change present particularly distal aspect abdominal aorta. There is no ultrasound demonstrable mass or fluid collection directly adjacent to visualized portions abdominal aorta. Immediate common iliac arterial branch vessel AP diameters: Right-1.1 cm and left-1.1 cm. Transverse measurements: Right-1.1 cm and left-1.0 cm. IMPRESSION IMPRESSION: No focal abdominal aorta aneurysm. Exam Ended: 08/19/23 08:04 Last Resulted: 08/19/23 12:[address] THORAX (LOW DOSE) WITHOUT CONTRAST HISTORY: Lung Cancer Screening TECHNIQUE: Noncontrast low-dose CT (LDCT) chest per standard departmental protocol. COMPARISON: - FINDINGS: Lung Screening Specific (LungRADS): None Potentially Significant Incidentals (LungRADS Category S): None. THYROID:Within normal limits. THORACIC AORTA: No aneurysm. CORONARY ARTERIES: Moderate calcification. MAIN PULMONARY ARTERY: Normal sized. HEART: No pericardial effusion. ESOPHAGUS: Within normal limits. MEDIASTINUM AND PHAN: Nonspecific mediastinal lymphadenopathy with the largest node in the subcarinal region measuring 19 mm in short axis diameter. CHEST SOFT TISSUES: Within normal limits. CHEST WALL: Within normal limits. AIRWAYS: Tracheal diverticulum LUNGS: There is subpleural reticulation and honeycombing with traction bronchiolectasis. Mild centrilobular emphysema. UPPER ABDOMEN:Within normal limits. IMPRESSION IMPRESSION: 1. LungRADS Category 2: Negative, benign appearance or behavior. 2. LungRADS Category S: Negative. No new/unknown potentially significant incidental findings requiring additional evaluation. 3. Incidental findings as above. RECOMMENDATIONS: Next exam to be arranged by the Lung Cancer Screening Program. Exam Ended: 08/19/23 09:51 Last Resulted: 08/23/23 19:54 [facility] Patient Name: Kevin Verde Procedure Date: 02/02/2022 8:02 AM Date of : 1955 Admit Type: Outpatient Note Status: Finalized Date of : 1955 Admit Type: Outpatient Age: 66 Room: [facility] 1 Gender: Male Note Status: Finalized Procedure: Upper GI endoscopy Indications: Cirrhosis rule out esophageal varices Providers: Zaire Ruth MD (Doctor) Referring MD: Monique Huerta MD, [place] Medicines: Monitored Anesthesia Care Complications: No immediate complications. Estimated blood loss: None. Procedure: Pre-Anesthesia Assessment: - - Prior to the procedure, a History and Physical was performed, patient medications, allergies and sensitivities were reviewed. The patient's tolerance of previous anesthesia was reviewed. See [facility] for further details. - The risks, benefits, and alternatives of the procedure including the sedation options and risks were discussed with the patient. All questions were answered and informed consent was obtained. - Patient identification and proposed procedure were verified prior to the procedure by the physician and the nurse. The procedure was verified in the procedure room. - See [facility] for documentation of the pre-procedure assessment including ASA status. - After I obtained informed consent, the scope was carefully and meticulously passed under direct vision only when the lumen was definitively identified. CO2 insufflation was utilized throughout the entire procedure exclusively. After obtaining informed consent, the endoscope was passed under direct vision. All instruments were visually inspected immediately before and after removal from the patient to ensure they are fully intact. Throughout the procedure, the patient's blood pressure, pulse, and oxygen saturations were monitored continuously. The upper GI endoscopy was accomplished without difficulty. The patient tolerated the procedure well. The Endoscope was introduced through the mouth, and advanced to the second part of duodenum. Findings & Specimens: A hiatal hernia was present. The entire examined stomach was normal. The examined duodenum was normal. Impression: - Hiatal hernia. - Normal stomach. - Normal examined duodenum. - No specimens collected. Recommendation: - Discharge patient to home (with escort). - Continue present medications. - Return to referring physician as previously scheduled. - Patient has a contact number available for emergencies. The signs and symptoms of potential delayed complications were discussed with the patient. Return to normal activities tomorrow. Written discharge instructions were provided to the patient. Zaire Ruth MD 02/02/2022 8:10:41 AM This report has been signed electronically. Document Information Communication and Comprehension: Communication and Comprehension Communication and Comprehension Follow-up Patient cognition:: Oriented to person;Oriented to place;Oriented to time;Alert (05/06/241705) Alteration in memory:: None (05/06/241705) Patient able to understand instructions:: Written;Verbal (05/06/241705) Does the patient have any vision issues?: Yes (05/06/241705) Supports used:: Glasses or contacts (readers) (05/06/241705) Does the patient have hearing issues?: Yes (05/06/241705) Supports used:: (KETCHIKAN no hearing aids) (05/06/241705) Anabaptism or spiritual beliefs that impact treatment:: No (05/06/241705) Patient and Caregiver Support System: Patient lives: with a spouse Means of Transportation: Drives. Not a concern. Patient lives in: Two Story - How many stairs: 13 each Functional Status and ADL Skills: Ambulation: Independent ADLs/IADLs ADL/IADLs Does the patient need assistance with any of the following ADLs?: None (05/06/241705) Does the patient need assistance with any of the following IADLs?: None (05/06/241705) Fall Risk Assessment: Fall risk factors present. none Yog-Mr-aiv-Go Test: Time began at 900. Patient stood from sitting position and walked [id number] feet, returned and sat down. Total time for ptf-jy-crz-go test was 12 seconds. The patient did well on the "Get Up and Go" test. Nutritional Health Checklist: Changed food due to illness or condition: No (0 pts) Eat fewer than 2 meals per day: No (0 pts) Eat few fruits veggies or milk products: No (0 pts) 3 or more drinks or beer, liquor, wine daily: No (0 pts) Tooth or mouth problem: No (0 pts) Not enough money to purchase food: No (0 pts) Eat alone: No (0 pts) 3 or more medications taken per day: No (0 pts) Weight change of 10 lbs. In 6 months: No (0 pts) Not always able to shop, cook or feed self: No (0 pts) Total points: 0 Nutritional Health Score & Recommendation: 0-2: Low nutritional risk Depression Screening: PHQ2/9 Screening PHQ2_9 Adult Little interest or pleasure in doing things: Not at all (05/06/241706) Feeling down, depressed or hopeless: Not at all (05/06/241706) PHQ Adult Total Score: 0 (05/06/241706) PHQ Adult Score Description: No Depression (05/06/241706) Social Determinants of Health Screening: SDoH Screening Tool Adult (for ages 18 years and over) Within the past 12 months, you worried that your food would run out before you got the money to buymore.: Never true (05/06/241706) Within the past 12 months, the food you bought just didn't last and you didn't have money to get more.: Never true (05/06/241706) Do you need food for this week?: No (05/06/241706) Do you currently live in a residential or have no steady place to sleep at night?: No (05/06/241706) Are you homeless or worried that you might be in the future?: No (05/06/241706) Has lack of transportation kept you from medical appointments, meetings, work, or from getting things needed for daily living? Check all that apply.: No (05/06/241706) Do you have any trouble paying for your medications, or do you think you might in the future?: No (05/06/241706) How often do you feel lonely or isolated from those around you?: Never (05/06/241706) Do you feel unsafe or have concerns for your safety?: No (05/06/241706) Do you feel overwhelmed with taking care of a child, family member or friend?: No (05/06/241706) Have you been unable to get clothing when it was really needed?: No (05/06/241706) Do you have trouble paying your heating, water, or electric bill?: No (05/06/241706) Are you unemployed or without regular income?: No (05/06/241706) Would you like help connecting to resources in any of these categories?: None (05/06/241706) Community Resources: Community Resources: Not Applicable Potential Resource Needs from Benefits Identified: No Benefits: Benefits Benefits Health plan benefits assessed: Adequate to cover care (05/06/241706) Is the patient a SNP?: No (05/06/241706) HRA Provider Assessment Documentation: Objective Past Medical History: Diagnosis Date Hepatitis C infection 1989 acquired by blood trasnfusion , was on [place] Open fracture of multiple ribs 01/24/2008 Patient Active Problem List Diagnosis Hepatitis C virus infection cured after antiviral drug therapy Prediabetes Gastroesophageal reflux disease Mixed dyslipidemia HTN, goal below 130/80 Psoriasis vulgaris Tobacco use Hiatal hernia Atherosclerosis of aorta (HCC) Hepatic steatosis Centrilobular emphysema (HCC) Family History Problem Relation Name Age of Onset Diabetes Mother Review of patient's allergies indicates: No Known Allergies Current Outpatient Medications Medication Sig Dispense Refill Levalbuterol Tartrate 45 MCG/ACT Inhalation Aerosol (Xopenex HFA) Inhale 2 Puffs by mouth every 4 hours as needed for Wheezing. 18 g 0 Melatonin 0.5 MG TABS Take 0.5 Tablets by mouth. Takes 4-5 every day at bedtime. omeprazole (PRILOSEC) 20 MG CPDR take 1 capsule by mouth once daily 90 Cap 3 Skyrizi Pen 150 MG/ML Subcutaneous Solution Auto-injector (risankizumab-rzaa) Starter Dose: Inject 150 mg (1 pen) under the skin on week 0 and week 4. 2 mL 0 Atorvastatin Calcium 10 MG Oral Tablet (Lipitor) Take 1 Tablet by mouth in the morning. 90 Tablet 3 Multivitamin Gummies Adult Oral Tablet Chewable Take 1 Tablet by mouth in the morning. Clobetasol Propionate 0.05 % External Cream (Temovate) Apply to psoriasis on hands and legs twice daily as needed for flares 60 g 5 Skyrizi Pen 150 MG/ML Subcutaneous Solution Auto-injector (risankizumab-rzaa) Maintenance Dose: Inject 150mg (1 pen) under the skin every 12 weeks following the starter dose. 1 mL 1 Ramipril 10 MG Oral Capsule (Altace) TAKE 1 CAPSULE BY MOUTH EVERY DAY IN THE MORNING 90 Capsule 3 No current facility-administered medications for this visit. Past Surgical History: Procedure Laterality Date EGD, FLEXIBLE, DIAGNOSTIC N/A 06/28/2017 LA grade B reflux esophagitis/mild schatzki ring/small hiatal hernia/repeat 8 wks/ESOPHAGOGASTRODUODENOSCOPY (EGD), FLEXIBLE, TRANSORAL, DIAGNOSTIC performed by Cindy Chacon MD at [facility] EGD, FLEXIBLE, DIAGNOSTIC N/A 08/30/2017 oscar grade III reflux esophagitis/small hiatal hernia/repeat 3 months/ESOPHAGOGASTRODUODENOSCOPY (EGD), FLEXIBLE, TRANSORAL, DIAGNOSTIC performed by Leny Reddy DO at [facility] EGD, FLEXIBLE, DIAGNOSTIC N/A 11/29/2017 hiatal hernia/ectopic gastric mucosa in upper third of esophagus/ESOPHAGOGASTRODUODENOSCOPY (EGD), FLEXIBLE, TRANSORAL, DIAGNOSTIC performed by Zaire Ruth MD at [facility] EGD, FLEXIBLE, DIAGNOSTIC N/A 02/02/2022 hiatal hernia/ESOPHAGOGASTRODUODENOSCOPY (EGD), FLEXIBLE, TRANSORAL, DIAGNOSTIC performed by Zaire Ruth MD at [facility] Immunization History Administered Date(s) Administered COVID-19 mRNA, LNP-s, No Preserve, 2-Dose Series ([employer]) 04/07/2021 HepA Inact/HepB Recomb>=18yrs old 07/16/2017 Pneumococcal Conjugate Vaccine, 20-valent ([id number]) 08/13/2023 RSV Vac., Recomb, Adjuvant, PF,0.5 Ml (Arexvy) 2024 Seasonal Influenza, High Dose, Trivalent, PF, IM (Fluzone HD) 2024 Seasonal Influenza, PF, 6 M & above, IM , (FluLaval or Fluzone) 12/29/2017, 12/28/2019, 02/04/2021 Seasonal Influenza, Quadrivalent Hd (Fluzone Hd) 02/02/2022 Seasonal Influenza, Quadrivalent, No Preserve, IM 04/22/2016 TDAP (age 10 and older)(Boostrix) 01/02/2014 Zoster Vaccine Recombinant (Shingrix) 02/19/2022, 04/16/2022 Preventative Plan: Diabetes (Fasting plasma glucose every 3 years): Hemoglobin AIC Results: Lab Results Component Value Date/Time HEMOGLOBIN A1C - [facility] 6.1 (H) 08/13/2023 09:31 AM HEMOGLOBIN A1C - [facility] 5.8 (H) 02/07/2018 10:21 AM Lipid Testing (Every 5 years): Lipid Panel Results: Results for orders placed or performed in visit on 08/13/23 LIPID PANEL WITH DIRECT LDL IF TG IS HIGH Result Value Ref Range Triglycerides 84 <=174 mg/dL Cholesterol 152 <200 mg/dL HDL Cholesterol 29 (L) >39 mg/dL Non-HDL Cholesterol 123 <=159 mg/dL LDL Cholesterol 106 <=129 mg/dL Colonoscopy or other screenin07/23/14 Health Maintenance Topic Date Due DISCUSS TOBACCO CESSATION (REFER TO SMARTSET #8741) Never done Alpha-1 Antitrypsin Never done Hepatitis B Vaccine (2 of 3 - Hep B Twinrix 3-dose series) 08/13/2017 Depression Screening 01/12/2019 *BASELINE EKG FOR HTN Never done COVID-19 Vaccine (3 - 2023- season) 2023 DTap/Tdap Vaccines (2 - Td or Tdap) 01/03/2024 GFR 05/06/2024 Colorectal Cancer Screening 07/23/2024 HbA1c 08/12/2024 O2 ASSESSMENT COMPLETED IN PAST YEAR FOR COPD 02/16/2025 Adult Wellness Visit 05/05/2025 Albumin/Creatinine Ratio 08/12/2026 Influenza Vaccine (FLU shot) Completed Lung Cancer Screening Completed AAA Screening Completed Zoster Vaccines Completed Pneumococcal Vaccine: 50+ Years Completed MENINGOCOCCAL (MENACTRA/MENVEO) Aged Out HPV (Gardasil) Vaccine Aged Out Review of Systems: Review of Systems HENT: KETCHIKAN Respiratory: Some occasional SOB All other systems reviewed and are negative. Physical Exam: Vitals: 05/06/24 1702 Pulse: 82 Resp: 18 SpO2: 92% BP: 148/82 Pain Screening: no Pain Scale: 0 = none There is no height or weight on file to calculate BMI. Physical Exam Constitutional: Appearance: Normal appearance. HENT: Head: Normocephalic and atraumatic. Mouth/Throat: Mouth: Mucous membranes are moist. Eyes: Extraocular Movements: Extraocular movements intact. Neck: Vascular: No carotid bruit. Cardiovascular: Rate and Rhythm: Normal rate and regular rhythm. Heart sounds: Normal heart sounds. No murmur heard. Pulmonary: Comments: Diffuse rhochi L>R. No crackles. No tachypnea Abdominal: General: Bowel sounds are normal. Palpations: Abdomen is soft. Musculoskeletal: General: No swelling. Cervical back: Neck supple. Skin: General: Skin is warm and dry. Neurological: General: No focal deficit present. Mental Status: He is alert and oriented to person, place, and time. Gait: Gait normal. Psychiatric: Mood and Affect: Mood normal. Behavior: Behavior normal. Lab Data: Lab Results Component Value Date/Time BUN - [facility] 14 05/06/2023 11:28 AM BUN - [facility] 12 02/19/2020 07:16 AM Lab Results Component Value Date/Time CREATININE - [facility] 0.9 05/06/2023 11:28 AM CREATININE - [facility] 1.0 02/19/2020 07:16 AM CREATININE, RANDOM URINE - [facility] 99 08/13/2023 09:31 AM Lab Results Component Value Date/Time GLUCOSE - [facility] 101 05/06/2023 11:28 AM GLUCOSE - [facility] 118 02/19/2020 07:16 AM No components found for: "[id number]" Lab Results Component Value Date/Time LDL CHOLESTEROL (CALCULATED) - [facility] 106 08/13/2023 09:31 AM LDL CHOLESTEROL (CALCULATED) - [facility] 04/22/2016 09:25 AM LDL CHOLESTEROL (DIRECT MEASURE) - [facility] NOT APPLICABLE 04/22/2016 09:25 AM No results found for: "MICROALBUMIN" Assessment/Plan: Kevin was seen today for adult annual wellness visit, initial visit. Diagnoses and all orders for this visit: Gastroesophageal reflux disease without esophagitis Centrilobular emphysema (HCC) Psoriasis vulgaris Atherosclerosis of aorta (HCC) HTN, goal below 130/80 Mixed dyslipidemia Hepatitis C virus infection cured after antiviral drug therapy Prediabetes Tobacco use Hiatal hernia Hepatic steatosis Screening for depression - DEPRESSION SCREENING PERFORMED Other orders - Levalbuterol Tartrate 45 MCG/ACT Inhalation Aerosol (Xopenex HFA); Inhale 2 Puffs by mouth every4 hours as needed for Wheezing. PLAN Pt reports no active issues or adverse effects to the established treatment plan. No changes at this time. Strongly advised to contact her care team if changes occur. Care Planning (3+ Personal and/or Medical Goals): Eat healthy Maintain independence Maintain current activity level Treatment Plan: Patient continues to work on their progress to the goals set by themselves and their PCP Follow Up/Handouts: CAHAWV f/u one year I spent a total of Greater than 55 mins (exact time 70 mins) on the date of service in preparation,delivery, and documentation of the care provided to Kevin Verde excluding any time spent in the performance of separately billed services. Madhavi Ocasio PA-C documented in this encounter Plan of Treatment Upcoming Encounters Date Type Department Care Team (Late st Contact Info) Description 05/03/2025 9:00 AM EST Home Visit Care at Home [address] [facility] [place] [address] Madhav[facility]cas[facility] PA-C [facility] [address] [facility] [address] Health Maintenance Due Date Last Done Comments DISCUSS TOBACCO CESSATION (REFER TO SMARTSET #[id number]) 1955 Alpha-1 Antitrypsin 02/16/1974 Cologuard 02/16/2001 Fecal Occult Blood Test 02/16/2001 Sigmoidoscopy 02/16/2001 Hepatitis B Vaccine (2 of 3 - Hep B Twinrix 3-dose series) 08/13/2017 07/16/2017 *BASELINE EKG FOR HTN 08/15/2023 COVID-19 Vaccine (3 - 2023- season) 2023 04/07/2021, 07/24/2020 DTap/Tdap Vaccines (2 [...] as of this encounter Visit Diagnoses Diagnosis Gastroesophageal reflux disease without esophagitis- Primary Esophageal reflux Centrilobular emphysema (HCC) Other emphysema Psoriasis vulgaris Other psoriasis Atherosclerosis of aorta (HCC) Atherosclerosis of aorta HTN, goal below 130/80 Unspecified essential hypertension Mixed dyslipidemia Mixed hyperlipidemia Hepatitis C virus infection cured after antiviral drug therapy Prediabetes Other abnormal glucose Tobacco use Tobacco use disorder Hiatal hernia Diaphragmatic hernia without mention of obstruction or gangrene Hepatic steatosis Other chronic nonalcoholic liver disease Screening for depression documented in this encounter Advance Directives * Full Code (Latest Code Status on File) Date Activated Date Inactivated Comments 01/23/2008 5:25 AM 01/25/2008 5:33 PM Care Teams Holistic Specialist Relationship Specialty Start Date End Date Breann Chapin MD [address] [facility] [place] [address] PCP - General Family Medicine 08/13/23 documented as of this encounter
--- OUTSIDE RECORDS SUMMARY | 2024-06-29 01:05 | External Medical Summary | Summary of Care ---
Author Name Unknown Organization [facility] Address [address] [place] [address] Phone [phone] Care Team Providers Care Supervisor Sewer Maintenance Name Role Phone Breann Chapin MD Primary Care Provider [phone] Encounter Details Date Type Department Care Team (Late st Contact Info) Description 11/25/2023 Telephone Dermatology [facility] [address] [place] [address] Services, Scheduling [address] [place] [address] Allergies No known active allergiesdocumented as of this encounter (statuses as of 02/24/2024) Medications Melatonin 0.5 MG TABS Take 0.5 [...] starter dose. 1 mL 1 4 Active documented as of this encounter (statuses as of 02/24/2024) Active Problems Problem Noted Date Diagnosed Date Mixed dyslipidemia 08/13/2023 HTN, goal below 130/80 08/13/2023 Psoriasis vulgaris 08/13/2023 Tobacco use 08/13/2023 Gastroesophageal reflux disease 09/23/2022 Prediabetes 04/25/2018 Overview: Per Prediabetes protocol #1 Hepatitis C virus infection cured after antiviral drug therapy 02/11/2018 Overview (02/11/2018): HCV treated; SVR confirmed 02/07/2018 documented as of this encounter (statuses as of 02/24/2024) Resolved Problems Problem Noted Date Diagnosed Date Resolved Date Chronic hepatitis C without hepatic coma 04/30/2016 02/11/2018 Overview (02/11/2018): HCV treated; SVR confirmed 02/07/2018 Open fracture of multiple ribs 01/24/2008 04/01/2023 documented as of this encounter (statuses as of 02/24/2024) Immunizations Name Administration Dates Next Due HepA Inact/HepB Recomb>=18yrs old 07/16/2017 Pneumococcal Conjugate Vacci ne, 20-valent ([id number]) 08/13/2023 Seasonal Influenza, PF, 6 M & above, [...] encounter Miscellaneous Notes * Telephone Encounter - Maryam Pavon OSA - 11/30/2023 11:09 AM EDT Skyrizi arrived to our office today. I called patient and left message on cell phone that it is here. * Telephone Encounter - Marleen Emerson OSA - 11/25/2023 1:32 PM EDT [facility] address to have pt's Skyrizi delivered to the office. One 50 mg skyrizi pen is scheduled to ne delivered Wednesday 11/29 with a signature required. They askthat we proivide the pt the welcome packet with privacy info included with the shipment Thank you, LEVI Machado documented in this encounter Plan of Treatment Upcoming Encounters Date Type Department Care Team (Late st Contact Info) Description 05/01/2024 12:30 PM EST Home Visit Care at Home [address] [place] [address] Madhavi Ocasio PA-C [address] [place], [place] [id number] Health Maintenance Due Date Last Done Comments Jaycee 02/16/2001 Fecal Occult Blood Test 02/16/2001 Sigmoidoscopy [...] 5:25 AM 01/25/2008 5:33 PM Care Teams Supervisor Sewer Maintenance Relationship Specialty Start Date End Date Breann Chapin MD [address] [place] [address] PCP - General Family Medicine 08/13/23 documented as of this encounter
--- OUTSIDE RECORDS SUMMARY | 2024-06-29 01:05 | External Medical Summary | Summary of Care ---
Author Name Unknown Organization [facility] Address [address] [place] [address] Phone [phone] Care Team Providers Care Electric Motor Tester Assembler Name Role Phone Breann Chapin MD Primary Care Provider [phone] Reason for Visit * Reason Comments Dosage Adjustment Via Phone (anticoag Cl inic) Encounter Details Date Type Department Care Team (Late st Contact Info) Description 05/02/2024 9:30 AM EST Telemedicine Dermatology [facility] [address] [place], [place] [phone] [place], Pharmacist Dermatology [address] [place] [address] Psoriasis vulgaris* Allergies No known active allergiesdocumented as of this encounter (statuses as of 05/02/2024) Medications Melatonin 0.5 MG TABS Take 0.5 [...] as of this encounter (statuses as of 05/02/2024) Active Problems Problem Noted Date Diagnosed Date Mixed dyslipidemia 08/13/2023 HTN, goal below 130/80 08/13/2023 Psoriasis vulgaris 08/13/2023 Tobacco use 08/13/2023 Gastroesophageal reflux disease 09/23/2022 Prediabetes 04/25/2018 Overview: Per Prediabetes protocol #1 Hepatitis C virus infection cured after antiviral drug therapy 02/11/2018 Overview (02/11/2018): HCV treated; SVR confirmed 02/07/2018 documented as of this encounter (statuses as of 05/02/2024) Resolved Problems Problem Noted Date Diagnosed Date Resolved Date Chronic hepatitis C without hepatic coma 04/30/2016 02/11/2018 Overview (02/11/2018): HCV treated; SVR confirmed 02/07/2018 Open fracture of multiple ribs 01/24/2008 04/01/2023 documented as of this encounter (statuses as of 05/02/2024) Immunizations Name Administration Dates Next Due HepA Inact/HepB Recomb>=18yrs old 07/16/2017 Pneumococcal Conjugate Vacci ne, 20-valent ([id number]) 08/13/2023 RSV Vac., Recomb, Adjuvant, PF,0.5 Ml [...] 35.1 Started: 1988 Smokeless Tobacco: Current Chew Tobacco Cessation:Ready to Q uit: Not Asked; Counseling Given: Not Answered Alcohol Use Standard Drinks/Week Comments Yes 0 [...] AM EDT documented as of this encounter Progress Notes * Javi Lawrence, [facility] - 05/02/2024 9:30 AM EST As per patient preference, connection with the patient via audio only occurred. The patient was informed this was a phone call only visit and was identified by name and date of . The patient agreed to participate. Total call duration was 15 minutes. Dermatology Clinical Pharmacy Dermatology Provider: Dr. Nielsen Pharmacist Referral for: Co-management Visit: 12 month Disease Type: Psoriasis - Psoriasis vulgaris L40.0 MEDICAL/SOCIAL HISTORY: Smoking: every day CURRENT MEDICATION REGIMEN: Biologic Therapy: IL-23 Risankizumab (Skyrizi) Maintenance 150mg/mL Pen- 150mg every 12 weeks (Day Supply: 1mL per supply) Date of initiation of present therapy: approximately May 2023. Stop date for present therapy: november . Last Dose: November Prior history of biologic therapy? Humira Topical Therapy: Using a cream a friend gave him - Diclofenac Triamcinolone Applying to: fronts of shins Frequency of use: Daily after showers Phototherapy: no MEDICATION ASSESSMENT: Adherence: In the last month, how many times has patient missed a dose of above noted medication? all. In the last month, how many times has patient taken dosage later than instructed? all. Side Effects Reported: no What does patient do when they have these side effects? N/a Any new medication since last visit?: no new medications/OTC/herbals. SYMPTOM/ILLNESS ASSESSMENT : Patient account of regimen effectiveness: improvement in condition/symptoms. Hospitalization, ED visits, or surgery since last visit: No FOLLOW UP LABS: Quantiferon gold (yearly): completed 05/06/23 PLAN: Patient reports: - Has not had dose since November. Pharmacy never called to schedule dose shipment in February - Had an issue with pen not working - got replacement pen sent in November but hasn't heard from pharmacy since - Provided him with [facility] phone number for future reference. Advised to keep track of when doses would be due and to call pharmacy if he doesn't hear from them when dose is due, which wouldhave been February. - Did experience relief in symptoms and improvement in skin while taking Skyrizi. Shins are starting to flare now without having doses. Does apply a cream his friend gave him (diclofenac) and triamcinolone daily after showers. - He has been in contact with patient assistance to get Skyrizi standpipe tender assistance re-approvedfor the 2024 year. He is aware that his assistance in 2023, so before he can get another dose shipped to him he needs to fill out and return application. Auth on file - expires 05/20/24 Labs up-to-date - due for Quant TB 05/06/24 - ordered and aware to obtain. Patient to continue Skyrizi - inject 1 pen every 12 weeks once re-approved for assistance. Follow-Up Appointment(s): Physician: no follow up - will make provider aware Javi Lawrence RPh Medication Therapy Disease Management Dermatology Department 05/02/2024, 9:30 AM documented in this encounter Plan of Treatment Upcoming Encounters Date Type Department Care Team (Late st Contact Info) Description 05/05/2024 9:30 AM EST Home Visit Care at Home [address] [facility] [place] [address] Madhavi Ocasio PA-C [address] [place] [address] Scheduled Orders Name Type Priority Associated Diagnoses Orde r Schedule QUANTIFERON TB GOLD PLUS Lab Routine Psoriasis vulgaris Expected: 05/02/2024, Expires: 05/02/2025 Health Maintenance Due Date Last Done Comments [...] as of this encounter Visit Diagnoses Diagnosis Psoriasis vulgaris- Primary Other psoriasis documented in this encounter Advance Directives * Full Code (Latest Code Status on File) Date Activated Date Inactivated Comments 01/23/2008 5:25 AM 01/25/2008 5:33 PM Care Teams Electric Motor Tester Assembler Relationship Specialty Start Date End Date Breann Chapin MD [address] [place] [address] PCP - General Family Medicine 08/13/23 documented as of this encounter
--- OUTSIDE RECORDS SUMMARY | 2024-06-29 01:05 | External Medical Summary | Summary of Care ---
Author Name Unknown Organization [facility] Address [address] [place] [address] Phone [phone] Care Team Providers Care Spring Coiler Hand Name Role Phone Breann Chapin MD Primary Care Provider [phone] Reason for Visit * Reason Onset Date Comments Medication Management 04/28/2024 Encounter Details Date Type Department Care Team (Late st Contact Info) Description 04/28/2024 Telephone Dermatology [facility] [address] [place], [place] [phone] Lizandro Nielsen MD [address] [place] [phone] Medication Management Allergies No known active allergiesdocumented as of this encounter (statuses as of 06/09/2024) Medications Melatonin 0.5 MG TABS Take 0.5 Tablets by mouth. Takes 4-5 every day at bedtime. Active omeprazole (PRILOSEC) 20 MG CPDRIndications: Reflux esophagitis take 1 capsule by mouth once daily 90 Cap 3 10/19/19 19 Active Atorvastatin Calcium 10 MG Oral Tablet [...] flares 60 g 5 11/05/19 24 Active Ramipril 10 MG Oral Capsule (Altace) TAKE 1 CAPSULE BY MOUTH EVERY DAY IN THE MORNING 90 Capsule 3 04/18/19 25 Active Skyrizi Pen 150 MG/ML Subcutaneous Solution Auto-injector (risankizumab-rz aa)Indications:P soriasis vulgaris Maintenance Dose: Inject 150mg (1 pen) under the skin every 12 weeks 1 mL 1 06/09/19 25 Active Skyrizi Pen 150 MG/ML Subcutaneous Solution Auto-injector (risankizumab-rz aa)Indications:P soriasis vulgaris Starter Dose: Inject 150 mg (1 pen) under the skin on week 0 and week 4. 2 mL 08/02/19 24 025 Discontin ued(Medic ation List Clean Up) Skyrizi Pen 150 MG/ML Subcutaneous Solution Auto-injector (risankizumab-rz aa)Indications:P soriasis vulgaris Maintenance Dose: Inject 150mg (1 pen) under the skin every 12 weeks following the starter dose. 1 mL 1 11/05/19 24 025 Discontin ued(Refil l) documented as of this encounter (statuses as of 06/09/2024) Active Problems Problem Noted Date Diagnosed Date [...] as of this encounter (statuses as of 06/09/2024) Resolved Problems Problem Noted Date Diagnosed Date Resolved Date Chronic hepatitis C without hepatic coma 04/30/2016 02/11/2018 Overview (02/11/2018): HCV treated; SVR confirmed 02/07/2018 Open fracture of multiple ribs 01/24/2008 04/01/2023 documented as of this encounter (statuses as of 06/09/2024) Immunizations Name Administration Dates Next Due HepA Inact/HepB Recomb>=18yrs old 07/16/2017 Pneumococcal Conjugate Vacci ne, 20-valent ([id number]) 08/13/2023 RSV Vac., Recomb, Adjuvant, PF,0.5 Ml [...] as of this encounter Miscellaneous Notes * Addendum Note - Juwan Clark RP - 06/09/2024 12:28 PM ESTAddended by: JUWAN CLARK on: 06/09/2024 12:28 PM Modules accepted: Orders * Telephone Encounter - Javi Lawrence RP - 05/01/2024 11:54 AM EST Provider form emailed back to patient assistance team Javi Lawrence PharmD Medication Therapy Disease Management Dermatology/Rheumatology Clinical Pharmacist 05/01/2024, 11:54 AM * Telephone Encounter - Javi Lawrence RPh - 04/28/2024 12:17 PM EST PAP form received from patient assistance team - emailed to provider for signature. Javi Lawrence PharmD Medication Therapy Disease Management Dermatology/Rheumatology Clinical Pharmacist 04/28/2024, 12:18 PM documented in this encounter Plan of Treatment Upcoming Encounters Date Type Department Care Team (Late st Contact Info) Description 05/03/2025 9:00 AM EST Home Visit Care at Home [address] [place], [place] [phone] Madhavi Ocasio PA-C [address] [place] [address] Health Maintenance Due Date Last Done Comments DISCUSS TOBACCO CESSATION (REFER TO SMARTSET #8442) 1955 Alpha-1 Antitrypsin 02/16/1974 Cologuard 02/16/2001 Fecal [...] of this encounter Visit Diagnoses Diagnosis Psoriasis vulgaris Other psoriasis documented in this encounter Advance Directives * Full Code (Latest Code Status on File) Date Activated Date Inactivated Comments 01/23/2008 5:25 AM 01/25/2008 5:33 PM Care Teams Spring Coiler Hand Relationship Specialty Start Date End Date Breann Chapin MD [address] [place] [address] PCP - General Family Medicine 08/13/23 documented as of this encounter
--- OUTSIDE RECORDS SUMMARY | 2024-06-29 01:05 | External Medical Summary | Summary of Care ---
Author Name Unknown Organization [facility] Address [address] [place] [address] Phone [phone] Care Team Providers Care Field Reporter Name Role Phone Breann Chapin MD Primary Care Provider [phone] Encounter Details Date Type Department Care Team (Late st Contact Info) Description 04/28/2024 Telephone Dermatology [facility] [place] [address] [place], [place] [phone] Lizandro Nielsen MD [address] [place] [address] Allergies No known active allergiesdocumented as of this encounter (statuses as of 05/01/2024) Medications Melatonin 0.5 MG TABS Take 0.5 [...] as of this encounter (statuses as of 05/01/2024) Active Problems Problem Noted Date Diagnosed Date Mixed dyslipidemia 08/13/2023 HTN, goal below 130/80 08/13/2023 Psoriasis vulgaris 08/13/2023 Tobacco use 08/13/2023 Gastroesophageal reflux disease 09/23/2022 Prediabetes 04/25/2018 Overview: Per Prediabetes protocol #1 Hepatitis C virus infection cured after antiviral drug therapy 02/11/2018 Overview (02/11/2018): HCV treated; SVR confirmed 02/07/2018 documented as of this encounter (statuses as of 05/01/2024) Resolved Problems Problem Noted Date Diagnosed Date Resolved Date Chronic hepatitis C without hepatic coma 04/30/2016 02/11/2018 Overview (02/11/2018): HCV treated; SVR confirmed 02/07/2018 Open fracture of multiple ribs 01/24/2008 04/01/2023 documented as of this encounter (statuses as of 05/01/2024) Immunizations Name Administration Dates Next Due HepA Inact/HepB Recomb>=18yrs old 07/16/2017 Pneumococcal Conjugate Vacci ne, 20-valent ([id number]) 08/13/2023 RSV Vac., Recomb, Adjuvant, PF,0.5 Ml [...] Telephone Encounter - Javi Lawrence RPh - 05/01/2024 11:54 AM EST Provider form [...] Description 05/02/2024 9:30 AM EST Telemedicine Dermatology [facility] [place] [address] [place] [address] Maria Del Rosario, Pharmacist Dermatology [address] [place] [address] 05/05/2024 9:30 AM EST Home Visit Care at Home [address] [facility] [place] [address] Madhavi Ocasio PA-C [address] [facility] [place] [phone] Health Maintenance Due Date Last Done Comments [...] 5:25 AM 01/25/2008 5:33 PM Care Teams Field Reporter Relationship Specialty Start Date End Date Breann Chapin MD [address] [place] [address] PCP - General Family Medicine 08/13/23 documented as of this encounter
--- OUTSIDE RECORDS SUMMARY | 2024-06-29 01:05 | External Medical Summary | Summary of Care ---
Author Name Unknown Organization [facility] Address [address] [place] [address] Phone [phone] Care Team Providers Care Blueprint Blocker Name Role Phone Breann Chpain MD Primary Care Provider [phone] Encounter Details Date Type Department Care Team (Late st Contact Info) Description 05/04/2024 Population Health External Data Unspecified Department Allergies No known active allergiesdocumented as of this encounter (statuses as of 05/04/2024) Medications Melatonin 0.5 MG TABS Take 0.5 [...] as of this encounter (statuses as of 05/04/2024) Active Problems Problem Noted Date Diagnosed Date Mixed dyslipidemia 08/13/2023 HTN, goal below 130/80 08/13/2023 Psoriasis vulgaris 08/13/2023 Tobacco use 08/13/2023 Gastroesophageal reflux disease 09/23/2022 Prediabetes 04/25/2018 Overview: Per Prediabetes protocol #1 Hepatitis C virus infection cured after antiviral drug therapy 02/11/2018 Overview (02/11/2018): HCV treated; SVR confirmed 02/07/2018 documented as of this encounter (statuses as of 05/04/2024) Resolved Problems Problem Noted Date Diagnosed Date Resolved Date Chronic hepatitis C without hepatic coma 04/30/2016 02/11/2018 Overview (02/11/2018): HCV treated; SVR confirmed 02/07/2018 Open fracture of multiple ribs 01/24/2008 04/01/2023 documented as of this encounter (statuses as of 05/04/2024) Immunizations Name Administration Dates Next Due HepA Inact/HepB Recomb>=18yrs old 07/16/2017 Pneumococcal Conjugate Vacci ne, 20-valent ([id number]) 08/13/2023 RSV Vac., Recomb, Adjuvant, PF,0.5 Ml [...] AM EDT documented as of this encounter Plan of Treatment Upcoming Encounters Date Type Department Care Team (Late st Contact Info) Description 05/05/2024 9:00 AM EST Home Visit Care at Home [address] [place] [address] Madhavi Ocasio PA-C [address] [place] [address] Health Maintenance Due Date Last Done Comments Cologuard 02/16/2001 Fecal Occult Blood Test 02/16/2001 Sigmoidoscopy 02/16/2001 Hepatitis B Vaccine (2 of 3 - Hep B Twinrix 3-dose series) 08/13/2017 07/16/2017 Depression Screening 01/12/2019 01/12/2018 Adult Wellness Visit 02/16/2022 *BASELINE EKG FOR HTN 08/15/2023 COVID-19 Vaccine (3 - season) 2023 04/07/2021, 07/24/2020 DTap/Tdap Vaccines (2 - Td or Tdap) 01/03/2024 01/02/2014 GFR 05/06/2024 05/06/2023, 0404/2021, 09/25/2020, Additional history exists Colonoscopy 07/23/2024 07/23/2014 [...] 5:25 AM 01/25/2008 5:33 PM Care Teams Blueprint Blocker Relationship Specialty Start Date End Date Breann Chapin MD [address] [place] [address] PCP - General Family Medicine 08/13/23 documented as of this encounter
--- OUTSIDE RECORDS SUMMARY | 2024-06-29 01:06 | External Medical Summary | Summary of Care ---
Author Name Unknown Organization [facility] Address [address] [place] [address] Phone [phone] Care Team Providers Care Chemical Compounder Name Role Phone Breann Chapin MD Primary Care Provider [phone] Reason for Visit * Reason Comments eRx-Medication Refill Encounter Details Date Type Department Care Team (Late st Contact Info) Description 01/10/2024 Refill Family Practice [facility] [place] [address] [facility] [place] [address] Breann Chapin MD [address] [facility] [place] [address] Allergies No known active allergiesdocumented as of this encounter (statuses as of 01/12/2024) Medications Medication Sig Dispensed Refills Start Date End Date Status Melatonin 0.5 MG TABS Take 0.5 Tablets by mouth. Takes 4-5 every day at bedtime. Active omeprazole (PRILOSEC) 20 MG CPDRIndications:R eflux esophagitis take 1 capsule by mouth once daily 90 Cap 3 10/18/2018 Active Skyrizi Pen 150 MG/ML Subcutaneous Solution Auto-injector (risankizumab-rza a)Indications:Pso riasis vulgaris Starter Dose: Inject 150 mg (1 pen) under the skin on week 0 and week 4. 2 mL 08/02/2023 Active Atorvastatin Calcium 10 MG Oral Tablet (Lipitor)Indicati ons:Mixed dyslipidemia Take 1 Tablet by mouth in the morning. 90 Tablet 3 08/13/2023 Active Multivitamin Gummies Adult Oral Tablet Chewable Take 1 Tablet by mouth in the morning. Active Clobetasol Propionate 0.05 % External Cream (Temovate)Indicat ions:Psoriasis vulgaris Apply to psoriasis on hands and legs twice daily as needed for flares 60 g 5 11/05/2023 Active Skyrizi Pen 150 MG/ML Subcutaneous Solution Auto-injector (risankizumab-rza a)Indications:Pso riasis vulgaris Maintenance Dose: Inject 150mg (1 pen) under the skin every 12 weeks following the starter dose. 1 mL 1 11/05/2023 Active Ramipril 10 MG Oral Capsule (Altace) TAKE 1 CAPSULE BY MOUTH EVERY DAY IN THE MORNING 30 Capsule 2 01/12/2024 Active Ramipril 10 MG Oral Capsule (Altace) TAKE 1 CAPSULE BY MOUTH EVERY MORNING 30 Capsule 11/02/2023 01/12/20 24 Discontinued documented as of this encounter (statuses as of 01/12/2024) Active Problems Problem Noted Date Diagnosed Date Mixed dyslipidemia 08/13/2023 HTN, goal below 130/80 08/13/2023 Psoriasis vulgaris 08/13/2023 Tobacco use 08/13/2023 Gastroesophageal reflux disease 09/23/2022 Prediabetes 04/25/2018 Overview: Per Prediabetes protocol #1 Hepatitis C virus infection cured after antiviral drug therapy 02/11/2018 Overview: HCV treated; SVR confirmed 02/07/2018 documented as of this encounter (statuses as of 01/12/2024) Resolved Problems Problem Noted Date Diagnosed Date Resolved Date Chronic hepatitis C without hepatic coma 04/30/2016 02/11/2018 Overview: HCV treated; SVR confirmed 02/07/2018 Open fracture of multiple ribs 01/24/2008 04/01/2023 documented as of this encounter (statuses as of 01/12/2024) Immunizations Name Administration Dates Next Due HepA Inact/HepB Recomb>=18yrs old 07/16/2017 Pneumococcal Conjugate Vacci ne, 20-valent ([id number]) 08/13/2023 Seasonal Influenza, PF, 6 M & above, IM , (FluLaval or Fluzone) 02/04/2021,12/28/2019,12/29/2017 Seasonal Influenza, Quadriva lent Hd (Fluzone Hd) 02/02/2022 Seasonal Influenza, Quadriva lent, No Preserve, IM 04/22/2016 TDAP (age 10 and older)(Boostrix) 01/02/2014 Zoster Vaccine Recombinant (Shingrix) 04/16/2022 ,02/19/2022 documented as of this encounter Social History Tobacco Use Types Packs/Day Years Used Date Smoking Tobacco: Every Day Cigarettes 1 34.8 Started: 1989 Smokeless Tobacco: Current Chew Alcohol Use Standard Drinks/Week Comments Yes 0 (1 standard drink = 0.6 oz pur e alcohol) "very little" once a week PHQ-2 Answer Date Recorded PHQ-2 Score 0 02/13/2018 Utilities Answer Date Recorded Do you have trouble paying y our heating, water, or electric bill? (Adult - for ages 18 years and over) Not on file 09/28/2023 Is your family able to pay t he heat, water, or electric bill? (Household - for ages 0-17 years) Not on file 09/28/2023 Does your family have access to good internet? (Household - for ages 0-17 years) Not on file 09/28/2023 Social Connections Answer Date Recorded How often do you feel lonely or isolated from those around you? (Adult - for ages 18 years and over) Not on file 09/28/2023 Sex and Gender Information Value Date Recorded Sex Assigned at Not on file Gender Identity Not on file Sexual Orientation Not on file Job Start Date Occupation Industry Not on file Not on file Not on file documented as of this encounter Miscellaneous Notes * Telephone Encounter - Noemí Coleman [facility] - 01/12/2024 8:53 AM EDTSigned Prescriptions: Disp Refills Ramipril 10 MG Oral Capsule (Altace) 30 Cap*2 Sig: TAKE 1 CAPSULE BY MOUTH EVERY DAY IN THE MORNINGAuthorizing Provider: Martha CHAPIN User: NOEMÍ COLEMAN documented in this encounter Plan of Treatment Upcoming Encounters Date Type Department Care Team (Late st Contact Info) Description 01/28/2024 9:30 AM EDT [place] [address] [place] [address] [place], Pharmacist Dermatology [address] [place] [id number] 02/15/2024 7:40 AM EST Office [facility] [address] [facility] [place] [address] Breann Chapin MD [address] [facility] [place] [address] 05/01/2024 12:30 PM EST Office Visit Care at Home [address] [place] [address] Madhavi Ocasio PA-C [address] [place] [address] Health Maintenance Due Date Last Done Comments Cologuard 02/16/2001 Fecal Occult Blood Test 02/16/2001 Sigmoidoscopy 02/16/2001 Hepatitis B Vaccine (2 of 3 - Hep B Twinrix 3-dose series) 08/13/2017 07/16/2017 Depression Screening 01/12/2019 01/12/2018 Adult Wellness Visit 02/16/2022 *BASELINE EKG FOR HTN 08/15/2023 COVID-19 Vaccine ( - season) 2023 04/07/2021, 07/24/2020 Influenza Vaccine (FLU shot) (#1) 2023 02/02/2022, 02/04/2021, 12/28/2019, Additional history exists DTap/Tdap Vaccines (2 - Td or Tdap) 01/03/2024 01/02/2014 GFR 05/06/2024 05/06/2023, 04/04/2021, 09/25/2020, Additional history exists Colonoscopy 07/23/2024 07/23/2014 Colorectal Cancer Screening 07/23/2024 HbA1c 08/12/2024 08/13/2023, 02/07/2018 Albumin/Creatinine Ratio 08/12/2026 08/13/2023 Lipid Panel 08/12/2028 08/13/2023, 04/22/2016 Zoster Vaccines Completed 04/16/2022, 02/19/2022 Pneumococcal Vaccine: 65+ Years Completed 08/13/2023 AAA Screening Completed 08/19/2023, 08/10/2018 Lung Cancer Screening Completed 08/19/2023 HPV (Gardasil) Vaccine Aged Out No lo [...] 5:25 AM 01/25/2008 5:33 PM Care Teams Chemical Compounder Relationship Specialty Start Date End Date Breann Chapin MD [address] [facility] [place] [address] PCP - General Family Medicine 08/13/23 documented as of this encounter
--- OUTSIDE RECORDS SUMMARY | 2024-06-29 01:06 | External Medical Summary | Summary of Care ---
Author Name Unknown Organization [facility] Address [address] [place] [address] Phone [phone] Care Team Providers Care Events Associate Name Role Phone Breann Chapin MD Primary Care Provider [phone] Encounter Details Date Type Department Care Team (Late st Contact Info) Description 11/23/2023 Telephone Dermatology [facility] [address] [place] [address] Lizandro Nielsen MD [address] [place] [address] Allergies No known active allergiesdocumented as of this encounter (statuses as of 02/22/2024) Medications Melatonin 0.5 MG TABS Take 0.5 [...] as of this encounter (statuses as of 02/22/2024) Active Problems Problem Noted Date Diagnosed Date Mixed dyslipidemia 08/13/2023 HTN, goal below 130/80 08/13/2023 Psoriasis vulgaris 08/13/2023 Tobacco use 08/13/2023 Gastroesophageal reflux disease 09/23/2022 Prediabetes 04/25/2018 Overview: Per Prediabetes protocol #1 Hepatitis C virus infection cured after antiviral drug therapy 02/11/2018 Overview (02/11/2018): HCV treated; SVR confirmed 02/07/2018 documented as of this encounter (statuses as of 02/22/2024) Resolved Problems Problem Noted Date Diagnosed Date Resolved Date Chronic hepatitis C without hepatic coma 04/30/2016 02/11/2018 Overview (02/11/2018): HCV treated; SVR confirmed 02/07/2018 Open fracture of multiple ribs 01/24/2008 04/01/2023 documented as of this encounter (statuses as of 02/22/2024) Immunizations Name Administration Dates Next Due HepA Inact/HepB Recomb>=18yrs old 07/16/2017 Pneumococcal Conjugate Vacci ne, 20-valent ([id number]) 08/13/2023 Seasonal Influenza, PF, 6 M & [...] Home Visit Care at Home [address] [place] [address] Madhavi Ocasio PA-C [address] [place] [address] Health Maintenance Due Date Last Done Comments [...] 5:25 AM 01/25/2008 5:33 PM Care Teams Events Associate Relationship Specialty Start Date End Date Breann Chapin MD [address] [place] [address] PCP - General Family Medicine 08/13/23 documented as of this encounter
[2024-06-29 07:54] VITALS: BP 103/56; PULSE 85; RESP 16; TEMP 98.6; O2SAT 93
[2024-06-29] MEDS: ENOXAPARIN INJ 40 MG/0.4 ML SYR SQ SCH (07:54)
--- NOTE | 2024-06-29 08:41 | Electrocardiogram Report ---
Test Reason : Blood Pressure : */* mmHG Vent. Rate : 87 BPM Atrial Rate : 87 BPM P-R Int : 158 ms QRS Dur : 96 ms QT Int : 386 ms P-R-T Axes : 41 -37 53 degrees QTcB Int : 464 ms Normal sinus rhythm Left axis deviation Abnormal ECG When compared with ECG of 10-Apr-2021 22:38, No significant change was found Confirmed by Duarte Ramos ([id number]) on 06/29/2024 8:40:44 AM Referred By: REFERRED SELF Confirmed By: Duarte Ramos
--- NOTE | 2024-06-29 09:41 | Discharge Summary ---
Date of Service June 29, 2024 Admission HPI Per Admitting Provider 69-year-old gentleman presents to the emergency department with a 1 day history of right lower quadrant stabbing abdominal pain. This was accompanied by chills as well as nausea. He last ate yesterday. The pain has worsened over the day. He denies fevers. He denies other complaints. He has not had any abdominal surgeries. CT scan demonstrates acute appendicitis. Principal Diagnosis acute appendicitis Discharge Exam Constitutional WD/WN, vitals as above cooperative and comfortable; no acute distress and not ill appearing Respiratory normal respiratory effort, lungs clear to auscultation Gastrointestinal (Abdomen) Inspection/Auscultation: abdomen normal to inspection, + abdominal wall ecchymosis (at umbilical port site) and + abdominal surgical incision (c/d/i with dermabond); abdomen not distended Percussion/Palpation: abdomen soft; abdomen nontender, no guarding, abdomen not rigid and abdomen not firm Skin no rashes, warm and dry Psychiatric A+Ox3, euthymic affect Discharge Data Allergies Allergy/AdvReac Type Severity Reaction Status Date / Time No Known Allergies Allergy Unverified 04/11/21 00:42 Consultations 06/28/24 16:51 ED Decision to Admit Stat Procedures Performed Operation Date: 06/28/24 20:00 Actual Procedures p Laparoscopic Appendectomy(Not Applicable) - Eugenio Qiu MD Ordered Studies 06/28/24 15:51 CT abd pelvis IV con only Stat Hospital Course (1) Appendicitis: Patient taken to operating room for laparoscopic appendectomy by Dr. Qiu on 06/28/24. Patient found to have acute appendicitis without perforation or rupture. Patient tolerated procedure without difficulty and transferred to med/surg for postoperative care. Diet and activity advanced as tolerated, pain control as needed, and Lovenox and scds for dvt prophylaxis. Patient required no pain medication postoperatively, preop pain resolved, tolerated diet and urinated without difficulty. Patient was discharged home on POD # 1 in stable condition. Total Time Total Time Spent Total Time Spent (In Minutes): 20 Total Time Includes: Examination of the Patient, Discharge Planning and Medication Reconciliation Discharge Plan Discharge Items Reason For Visit: POSTOP LAP APPENDECTOMY Follow-up/Referrals: PCP,NO [Primary Care Provider] - Medications and DC Order Prescriptions: No Action atorvastatin 10 mg tablet 10 mg PO QAM omeprazole 20 mg capsule,delayed release(/EC) 20 mg PO DAILY ramipril 10 mg capsule 10 mg PO QAM levalbuterol tartrate 45 mcg/actuation HFA aerosol inhaler 2 puff INHALATION Q4 PRN (Reason: WHEEZE) Admission Data Admit Date/Time: 06/28/24 21:03 Attending Provider: Eugenio Qiu Admit Provider: Eugenio Qiu Primary Care Provider: PCP,NO Other Providers: Eugenio Qiu
== END 2024-06-29 10:59 | disposition home or self-care (01) ==
LOC: ED 14:12 → 3W 14:12
DX: K21.9 Gastro-esophageal reflux disease without esophagitis; I10 Essential (primary) hypertension; F17.210 Nicotine dependence, cigarettes, uncomplicated; Z79.899 Other long term (current) drug therapy; K35.80 Unspecified acute appendicitis; E78.5 Hyperlipidemia, unspecified